=== PATIENT | female | born 1935 | race Caucasian/White ===

== ENCOUNTER 2023-02-06 13:48 | Outpatient (RCR) | payer MEDICARE, SELFPAY | END 2023-03-25 08:21 | disposition home or self-care (01) | LOC: OT 13:48 | PROVIDERS: PCP Nurse Practitioner Family; Visit Provider Nurse Practitioner Family | DX: M19.041 Primary osteoarthritis, right hand (principal) | CPT/HCPCS: 97018; 97110; 97140; 97165 ==

== ENCOUNTER 2023-03-26 10:30 | Outpatient (RCR) | payer MEDICARE, SELFPAY | END 2023-05-02 16:57 | disposition home or self-care (01) | LOC: OT 10:30 | PROVIDERS: PCP Nurse Practitioner Family; Visit Provider Nurse Practitioner Family | DX: M19.041 Primary osteoarthritis, right hand (principal) | CPT/HCPCS: 97018; 97110; 97140 ==

== ENCOUNTER 2023-04-19 10:10 | Outpatient (OUT) | payer MEDICARE, SELFPAY ==
--- OUTSIDE RECORDS SUMMARY | 2023-04-19 10:17 | XMS_ITS | CCD ---
Author Name Unknown Address [address] [place] [address] Organization [facility] Care Team Providers Care Miter Operator Name Role Phone Unavailable Unavailable Dank Stock Unavailable Namrata Estes Unavailable Naima Horan Unavailable [place] Cagle Primary Care Provider MD Magen Lentz Attending Provider DO Gurmeet Peña Attending Provider [phone] MD Melo Guzman Attending Provider MD Kelechi Madison Emergency Provider [place] Estes Attending Provider [phone] MD Leo Lanier Attending Provider [place] Cagle Primary Care Provider LENA Burt Attending Provider [phone] Crystal Burt Unavailable Namrata Cagle Unavailable [place] Cagle Primary Care Provider MD Meol Guzman Attending Provider [place] Cagle Attending Provider [phone] [place] Cagle Primary Care Provider MD Melo Guzman Attending Provider [place] Cagle Attending Provider MD Magen Lentz Attending Provider MD Nicola Walker Attending Provider Magen Lentz Unavailable TSERING, NAMRATA Primary Care Unavailable TSERING, NAMRATA Admitting Unavailable TSERING, NAMRATA Attending Unavailable ANITRA, DR IGLESIA Snow Consulting Unavailable TSERING, NAMRATA Consulting Unavailable TSERING, NAMRATA Primary Care Unavailable TSERING, NAMRATA Admitting Unavailable TSERING, NAMRATA Attending Unavailable TSERING, NAMRATA Primary Care Unavailable TD ., DR PINA Attending Unavailable ANA, DR MARILEE Williamson Consulting Unavailable TD ., DR PINA Admitting Unavailable AUSTIN ., PRETTY ROBBINS Consulting Unavailabl e TSERING, NAMRATA Primary Care Unavailable TSERING, NAMRATA Attending Unavailable TSERING, NAMRATA Admitting Unavailable TSERING, NAMRATA Primary Care Unavailable TSERING, NAMRATA Consulting Unavailable TSERING, NAMRATA Admitting Unavailable TSERING, NAMRATA Attending Unavailable TSERING, NAMRATA Primary Care Unavailable TSERING, NAMRATA Consulting Unavailable TSERING, NAMRATA Admitting Unavailable TSERING, NAMRATA Attending Unavailable TSERING, NAMRATA Primary Care Unavailable TSERING, NAMRATA Consulting Unavailable TSERING, NAMRATA Admitting Unavailable TSERING, NAMRATA Attending Unavailable TSERING, NAMRATA Primary Care Unavailable NANCY, DR EVANGELISTA Consulting Unavailable NANCY, DR EVANGELISTA Attending Unavailable NANCY, DR EVANGELISTA Admitting Unavailable TSERING, NAMRATA Primary Care Unavailable TSERING, NAMRATA Consulting Unavailable TSERING, NAMRATA Admitting Unavailable TSERING, NAMRATA Attending Unavailable TSERING, NAMRATA Primary Care Unavailable TSERING, NAMRATA Attending Unavailable TSERING, NAMRATA Admitting Unavailable ANA, DR MARILEE Williamson Consulting Unavailable TSERING, NAMRATA Consulting Unavailable Francy [place] Unavailable DANA Cagle-C Namrata Shantel Primary Care Provider DO Gurmeet Peña Attending Provider Unavailable Unavailable Moses LYNCH, Dr. Zack Velarde Referring Unavailable Moses II, Dr. Zack Velarde Attending Unavailable Moses II, Dr. Zack Velarde Referring Unavailable Kezia Patten Attending Unavailable [id number], Julio Cesar Attending Unavailable Tsering, DANA-C Namrata Shantel Primary Care Provider MD Melo Guzman Attending Provider Namrata Cagle Primary Care Unavailable Namrata Cagle Attending Unavailable Namrata Cagle Admitting Unavailable Tsering, Namrata Shantel Primary Care Unavailable Magen Lentz Admitting Unavailable Magen Lentz Attending Unavailable Tsering, Namrata Funes Primary Care Unavailable Nicola Walker Admitting Unavailable Nicola Walker Attending Unavailable Tsering, Namrata Funes Primary Care Unavailable Gurmeet Peña Admitting Unavailable Gurmeet Peña Attending Unavailable Melo Guzman Attending Unavailable Namrata Cagle Primary Care Unavailable Melo Guzman Admitting Unavailable Tsering, Namrata Funes Primary Care Unavailable Melo Guzman Admitting Unavailable Melo Guzman Attending Unavailable LANA ROSARIO Attending Unavailable LANA ROSARIO Attending Unavailable LANA ROSARIO Attending Unavailable Syd OCHOA Admitting Unavailable Syd OCHOA Attending Unavailable Syd OCHOA Attending Unavailable Namrata Chaparro Primary Care Provider Allergies Allergy Classification Reported Allergen(s) Allergy Type Date of Onset Reaction(s) Facility (20 sources) Amiodarone; Translations: [amiodarone] Drug Allergy 10-21-19 22 [facility] (6 sources) Bacitracin / Neomycin / Polymyxin B; Translations: [Neosporin OINT] Drug Allergy Rash [place] [address] DO Work Phone: (20 sources) Lisinopril; Translations: [lisinopril] Drug Allergy 10-21-19 22 [facility] (7 sources) NITROFURANTOIN, MACROCRYSTALS / Nitrofurantoin, Monohydrate; Translations: [Macrobid] Drug Allergy 01-19-20 23 Itching, Rash [facility] 250 DO Work Phone: (7 sources) Sulfonamides (Antibiotic); Translations: [Sulfa Drugs] Allergy to drug (finding) Unknown [facility] Repository (20 sources) Tobramycin; Translations: [Tobrex] Drug Allergy 01-19-20 23 Unknown [facility] Repository (16 sources) Bacitracin / Neomycin / Polymyxin B; Translations: [Neosporin] Drug Allergy 04-07-19 15 Unknown [facility] Repository (13 sources) Sulfacetamide Drug Allergy [facility] [employer] Other (12 sources) Miconazole; Translations: [miconazole] Drug Allergy 10-21-19 worsened ear infection [facility] (13 sources) Nitrofurantoin; Translations: [nitrofurantoin] Drug Allergy 10-21-19 22 Hives [facility] (13 sources) Sulfonamides (Antibiotic); Translations: [Sulfa (Sulfonamide Antibiotics)] Allergy to substance 10-21-19 Unknown [facility] (12 sources) Tobramycin; Translations: [tobramycin] Drug Allergy 10-21-19 worsened eye infection [facility] (5 sources) predniSONE; Translations: [predniSONE] Drug Allergy 11-24-19 22 Itching [facility] 250 DO Work Phone: (1 source) Amino Acids Drug Allergy [facility] Repository (2 sources) Amiodarone Drug Allergy [facility] Repository (1 source) Bacitracin Drug Allergy [facility] Repository (2 sources) Phentolamine Drug Allergy 04-14-19 15 [facility] Repository (2 sources) Sulfonamides (Antibiotic) Drug allergy (disorder) 04-14-19 15 [facility] Repository (1 source) Amiodarone Drug Allergy 06-09-19 23 [facility] Repository (1 source) Lisinopril Drug Allergy 06-09-19 23 [facility] Repository (1 source) Bacitracin / Polymyxin B Drug Allergy 01-19-20 23 [facility] Work Phone: Medications Current Medications Medication Drug Class(es) Dates Sig (Normalized) Sig (Original) amLODIPine 2.5 mg oral tablet (20 sources) Dihydropyridine Calcium Channel Kiesha Start: 11-30-2021 take 2.5 mg by mouth once daily Amlodipine Active 2.5 MG PO Daily June 08, 2022 12:00am Start: 2017 End: 05-12-2017 take 1 tablet by mouth once daily Amlodipine (Norvasc) 5 mg Tablet Discontinued 5 MG PO Daily 2017 1:00am May 12, 2017 4:21pm apixaban 2.5 mg oral tablet (20 sources) Factor Xa Inhibitor Start: 01-19-2023 End: 04-17-2024 take 1 tablet by mouth twice daily Eliquis 2.5 mg tablet Indications: Paroxysmal atrial fibrillation (CMS/HCC) Take 1 tablet (2.5 mg) by mouth 2 times a day. 60 tablet 11 04/18/2023 04/17/2024 Active Start: 04-08-2020 take 1 tablet by yrn th twice daily Apixaban (Eliquis) 2.5 mg tablet Active 2.5 MG PO Twice daily April 08, 2020 1:00am Start: 03-05-2018 End: 08-04-2019 take 1 tablet by mouth twice daily Apixaban (Eliquis) 2.5 mg Tablet Discontinued 2.5 MG PO Twice daily March 05, 2018 1:00am August 04, 2019 12:09am Start: 05-12-2017 End: 11-17-2017 take 1 tablet by mouth every twelve hours Apixaban (Eliquis) 2.5 mg Tablet Discontinued 2.5 MG PO Q12H May 12, 2017 1:00am November 17, 2017 2:00pm calcium acetate 667 mg oral capsule (20 sources) Start: 04-07-2021 take 1334 mg by mouth three times daily Calcium Acetate(Phosphat Bind) Active 1334 MG PO Three times daily April 07, 2021 1:00am Start: 04-07-2021 take 667 mg by mouth three times daily Calcium Acetate(Phosphat Bind) Active 667 MG PO Three times daily April 07, 2021 12:00am Start: 08-07-2019 End: 04-08-2020 take 667 mg by mouth three times daily at mealtime Calcium Acetate(Phosphat Bind) Discontinued 667 MG PO THREE TIMES DAILY WITH MEALS August 07, 2019 12:00am April 08, 2020 12:17pm Start: 04-03-2018 End: 11-27-2018 take 1 tablet by mouth twice daily Calcium Acetate(Phosphat Bind) Discontinued 1 TAB PO Twice daily April 03, 2018 1:00am November 27, 2018 9:53am cefdinir 300 mg oral capsule (2 sources) Cephalosporin Antibacterial Start: 04-08-2021 take 1 capsule by mouth every twelve hours Cefdinir 300 MG 1 capsule Orally every 12 hrs for 7 days Mar, Active ciprofloxacin 500 mg oral tablet (6 sources) Quinolone Antimicrobial Start: 10-15-2021 take 1 tablet by mouth every twelve hours Cipro 500 MG 1 tablet Orally every 12 hrs for 5 day(s) Sep, Active furosemide 80 mg oral tablet (20 sources) Loop Diuretic Start: 08-07-2019 take 1 tablet by mouth once daily furosemide (Lasix) 80 mg tablet Take 1 tablet (80 mg) by mouth once daily. 0 11/19/2020 Active Start: 11-27-2018 End: 08-07-2019 take 80 mg by mouth once daily Furosemide Discontinued 80 MG PO Daily November 27, 2018 9:54am August 07, 2019 2:47pm Start: 11-06-2017 End: 11-27-2018 take 40 mg by mouth once daily Furosemide Discontinued 40 MG PO Daily November 06, 2017 12:00am November 27, 2018 9:54am Start: 2017 End: 11-06-2017 take 20 mg by mouth twice daily Furosemide Discontinued 20 MG PO Twice daily 2017 1:00am November 06, 2017 9:06am hydroxychloroquine sulfate 200 mg oral tablet (1 source) Antimalarial, Antirheumatic Agent hydroxychloroquine (Plaquenil) 200 mg tablet Take 1 tablet (200 mg) by mouth. Take one tablet every 3 days 0 Active levothyroxine sodium 0.075 mg oral tablet (20 sources) l-Thyroxine Start: 2020 take 1 tablet by mouth once daily levothyroxine (Synthroid, Levoxyl) 75 mcg tablet Take 1 tablet (75 mcg) by mouth once daily. 0 01/24/2021 Active Start: 08-08-2019 Levothyroxine (Synthroid) 100 mcg tablet Active 75 MCG PO DAILY@0700 30 August 08, 2019 12:43pm Start: 11-06-2017 End: 08-08-2019 take 1 tablet by mouth once daily Levothyroxine (Synthroid) 100 mcg tablet Discontinued 100 MCG PO DAILY@0700 March 27, 2018 4:47pm August 08, 2019 12:43pm Start: 2017 End: 11-06-2017 take 100 ug by mouth once daily Levothyroxine Discontinued 100 MCG PO Daily 2017 1:00am November 06, 2017 9:07am take 1 tablet by yrn th once daily Levothyroxine Sodium 100 MCG TAKE ONE TABLET BY MOUTH DAILY Active methylPREDNISolone 4 mg oral tablet (5 sources) Corticosteroid Start: 06-08-2022 Methylprednisolone (Methylprednisone) 4 mg Tablet Active 4 MG PO Every 48 hours June 08, 2022 12:00am 24 hr metoprolol succinate 25 mg extended release oral tablet (20 sources) beta-Adrenergic Kiesha Start: 01-19-2023 End: 01-19-2024 take 0.5 tablet by mouth once daily metoprolol succinate XL (Toprol-XL) 25 mg 24 hr tablet Indications: Hypertension, unspecified type Take 0.5 tablets (12.5 mg) by mouth once daily. 45 tablet 3 01/19/2023 01/19/2024 Active Start: 03-14-2021 take 0.5 tablet by m outh once daily Metoprolol Succinate ER 25 MG Oral Tablet Extended Release 24 Hour take 1/2 tablet by mouth daily Quantity: 45 Refills: 3 Ordered: 28-Dec-2021 Kezia Anglin Start : 14-Mar-2021 Active Start: 09-25-2018 take 2 tablets by mo uth once daily at bedtime Metoprolol Succinate (Toprol Xl) 25 mg Tablet Extended Release 24 Hr Active 12.5 MG PO Daily at bedtime September 25, 2018 12:00am Start: 2017 End: 05-23-2017 take 50 mg by mouth twice daily Metoprolol Tartrate Di scontinued 50 MG PO Twice daily 2017 1:00am May 23, 2017 12:21pm predniSONE 5 mg oral tablet (1 source) take 1 tablet by mouth every other day predniSONE (Deltasone) 5 mg tablet Take 1 tablet (5 mg) by mouth every other day. 0 Active triamcinolone acetonide 0.001 mg/mg topical ointment (13 sources) Corticosteroid Start: 04-18-2019 Triamcinolone Acetonide 0.1 % 1 application Externally Twice a day for 14 days Mar, Active Start: 09-24-2015 SUSAN - 10 m g Sep, 40 mg Completed/Discontinued Medications Medication Drug Class(es) Dates Sig (Normalized) Sig (Original) amiodarone hydrochloride 200 mg oral tablet (11 sources) Antiarrhythmic Start: 05-12-2017 End: 09-03-2017 take 200 mg by mouth every twelve hours Amiodarone Discontinued 200 MG PO Q12H May 12, 2017 1:00am September 03, 2017 1:37pm amitriptyline hydrochloride 10 mg oral tablet (20 sources) Tricyclic Antidepressant Start: 2017 End: 04-08-2020 take 10 mg by mouth once daily at bedtime Amitriptyline Discontinued 10 MG PO Daily at bedtime 2017 1:00am April 08, 2020 12:17pm amoxicillin 500 mg oral capsule (11 sources) Penicillin-class Antibacterial Start: 05-12-2017 End: 05-22-2017 take 1000 mg by mouth twice daily Amoxicillin Discontinued 1000 MG PO Twice daily May 12, 2017 1:00am May 22, 2017 4:26pm amoxicillin 875 mg / clavulanate 125 mg oral tablet (11 sources) Penicillin-class Antibacterial Start: 03-12-2021 End: 04-07-2021 take 1 tablet by mouth twice daily Amoxicillin-Pot Clavulanate (Augmentin) 875-125 mg Tablet Discontinued 1 TAB PO Twice daily March 12, 2021 1:00am April 07, 2021 12:56pm anastrozole 1 mg oral tablet (20 sources) Aromatase Inhibitor Start: 2017 End: 04-08-2020 take 1 mg by mouth once daily Anastrozole Discontinued 1 MG PO Daily August 14, 2017 8:19am March 27, 2018 4:46pm aspirin 81 mg delayed release oral tablet (20 sources) Platelet Aggregation Inhibitor, Nonsteroidal Anti-inflammatory Drug Start: 09-04-2019 End: 04-08-2020 take 81 mg by mouth once daily Aspirin Discontinued 81 MG PO Daily September 04, 2019 12:00am April 08, 2020 12:17pm Start: 11-17-2017 End: 08-08-2019 take 81 mg by mouth two times weekly Aspirin Discontinued 81 MG PO Twice a Week November 17, 2017 12:00am August 08, 2019 12:45pm Start: 2017 End: 05-12-2017 take 1 tablet by mouth once daily Aspirin Discontinued 1 TAB PO Daily 2017 1:00am May 12, 2017 4:22pm take 1 tablet by yrn th every twenty-four hours Aspirin 81 MG 1 tablet Orally Once a day TWICE A WEEK Active cefuroxime 250 mg oral tablet (3 sources) Cephalosporin Antibacterial Start: 12-17-2021 take 1 tablet by mouth every twelve hours Cefuroxime Axetil 250 MG 1 tablet Orally every 12 hrs for 7 days Nov, Not-Taking cephalexin 500 mg oral capsule (20 sources) Cephalosporin Antibacterial Start: 10-17-2021 End: 06-08-2022 Cephalexin Discontinued 500 MG PO Three times daily October 20, 2021 12:00am June 08, 2022 1:26pm x7 days started 10-15-21 Start: 04-08-2020 End: 06-17-2020 take 500 mg by mouth twice daily Cephalexin Discontinued 500 MG PO Twice daily April 08, 2020 1:00am June 17, 2020 10:38am cloNIDine hydrochloride 0.2 mg oral tablet (20 sources) Central alpha-2 Adrenergic Agonist Start: 11-14-2017 End: 03-27-2018 take 0.2 mg by mouth twice daily Clonidine Hcl Discontinued 0.2 MG PO Twice daily November 14, 2017 10:43am March 27, 2018 4:46pm Start: 11-06-2017 End: 11-14-2017 take 0.2 mg by mouth three times daily Clonidine Hcl Discontinued 0.2 MG PO Three times daily November 06, 2017 12:00am November 14, 2017 10:43am Start: 2017 End: 11-06-2017 take 0.2 mg by mouth every twelve hours Clonidine Hcl Discontinued 0.2 MG PO Q12H 2017 1:00am November 06, 2017 9:06am diclofenac sodium 0.01 mg/mg topical gel (11 sources) Nonsteroidal Anti-inflammatory Drug Start: 08-08-2019 End: 04-08-2020 apply 2 g topically three times daily Diclofenac Sodium Discontinued 2 GM TOPICAL Three times daily 100 10 August 08, 2019 12:00am April 08, 2020 12:17pm docosahexaenoic acid 144 mg / eicosapentaenoic acid 216 mg / vitamin e 2 unt oral capsule (20 sources) Start: 05-22-2017 End: 09-03-2017 take 1 capsule by mouth once daily [place]-3 Fatty Acids-Fish Oil (Fish Oil) 360-1,200 mg Capsule Discontinued 1200 MG PO Daily May 22, 2017 1:00am May 22, 2017 4:36pm doxycycline hyclate 100 mg oral capsule (11 sources) Tetracycline-class Drug Start: 10-06-2021 End: 10-20-2021 take 100 mg by mouth twice daily Doxycycline Hyclate Discontinued 100 MG PO Twice daily 12 01October 06, 2021 12:00am October 20, 2021 11:54am ferrous sulfate 325 mg oral tablet (11 sources) Start: 05-22-2017 End: 11-01-2017 take 325 mg by mouth once daily Ferrous Sulfate Discontinued 325 MG PO Daily May 22, 2017 1:00am November 01, 2017 12:28pm hydrALAZINE hydrochloride 25 mg oral tablet (20 sources) Arteriolar Vasodilator Start: 08-07-2019 End: 06-08-2022 take 25 mg by mouth twice daily Hydralazine Discontinued 25 MG PO Twice daily August 07, 2019 12:00am June 08, 2022 1:26pm Start: 2017 End: 08-07-2019 take 25 mg by mouth once daily Hydralazine Discontinue d 25 MG PO Daily 2017 1:00am August 07, 2019 2:47pm take 1 tablet by yrn th every twenty-four hours hydrALAZINE HCl 25 MG 1 tablet Orally once a day Not-Taking ketorolac tromethamine 5 mg/ml ophthalmic solution (20 sources) Nonsteroidal Anti-inflammatory Drug, Cyclooxygenase Inhibitor Start: 11-04-2017 End: 11-04-2017 Ketorolac Discontinued SOLUTION/ DROPS November 04, 2017 12:00am November 04, 2017 5:34am Start: 11-04-2017 End: 03-27-2018 take 1 drop(s) into the eye(s) every six hours Ketorolac Discontinued 1 DROPS OPHTHALMIC Every 6 hours November 04, 2017 12:00am March 27, 2018 4:47pm levoFLOXacin 750 mg oral tablet (20 sources) Quinolone Antimicrobial Start: 2019 End: 04-02-2019 take 750 mg by mouth every other day Levofloxacin Discontinued 750 MG PO Q2D 2019 1:00am April 02, 2019 11:58am For 10 days. Start: 11-17-2017 End: 11-27-2017 Levofloxacin (Levaquin) 750 mg tablet Discontinued 750 MG PO Q48H 5 10 November 17, 2017 12:00am November 27, 2017 12:01am lidocaine 50 mg/ml rectal cream (20 sources) Antiarrhythmic, Amide Local Anesthetic Start: 08-08-2019 End: 10-20-2021 apply 1 dose topically once daily Lidocaine (Aspercreme (Lidocaine)) 4 % Adhesive Patch,Medicated Discontinued 1 PATCH TOPICAL Daily 6 August 08, 2019 12:00am October 20, 2021 11:54am Start: 08-07-2019 End: 10-20-2021 Lidocaine Discontinued 1 VENKATESH LIC TOPICAL MOWEFR@0900 15 August 08, 2019 12:43pm October 20, 2021 11:56am melatonin 3 mg oral tablet (20 sources) Start: 05-22-2017 End: 04-08-2020 take 3 mg by mouth once daily at bedtime Melatonin Discontinued 3 MG PO Daily at bedtime May 22, 2017 1:00am April 08, 2020 12:17pm mupirocin 0.02 mg/mg topical ointment (11 sources) RNA Synthetase Inhibitor Antibacterial Start: 04-08-2020 End: 06-17-2020 Mupirocin Discontinued 1 APPLIC TOPICAL Three times daily April 08, 2020 1:00am June 17, 2020 10:39am niacin 500 mg oral tablet (20 sources) Nicotinic Acid Start: 04-03-2018 End: 08-04-2019 take 1000 mg by mouth once daily Niacin Discontinued 1000 MG PO Daily April 03, 2018 1:00am August 04, 2019 12:09am Start: 05-22-2017 End: 11-01-2017 take 1000 mg by mouth at bedtime Niacin Discontinued 1000 MG PO Bedtime May 22, 2017 1:00am November 01, 2017 12:29pm nitrofurantoin, macrocrystals 100 mg oral capsule (11 sources) Nitrofuran Antibacterial Start: 09-25-2018 End: 11-27-2018 take 100 mg by mouth every twelve hours Nitrofurantoin Macrocrystal Discontinued 100 MG PO Q12H September 25, 2018 12:00am November 27, 2018 9:54am pantoprazole 40 mg delayed release oral tablet (11 sources) Proton Pump Inhibitor Start: 05-12-2017 End: 05-22-2017 take 40 mg by mouth once daily in the morning Pantoprazole Discontinued 40 MG PO Every morning May 12, 2017 1:00am May 22, 2017 4:25pm prednisoLONE acetate 10 mg/ml ophthalmic suspension (11 sources) Corticosteroid Start: 11-04-2017 End: 03-27-2018 take 1 drop(s) into the eye(s) once daily Prednisolone Acetate (Pred Forte) 1 % Drops,Suspension Discontinued 1 DROPS OPHTHALMIC Daily November 04, 2017 12:00am March 27, 2018 4:47pm psyllium 3400 mg powder for oral suspension (11 sources) Start: 04-03-2018 End: 08-04-2019 Psyllium Husk (Metamucil) 3.4 gram/5.4 gram Powder Discontinued 1 DOSE PO Daily April 03, 2018 1:00am August 04, 2019 12:09am spironolactone 25 mg oral tablet (11 sources) Aldosterone Antagonist Start: 2017 End: 11-17-2017 take 25 mg by mouth once daily Spironolactone Discontinued 25 MG PO Daily 2017 1:00am November 17, 2017 1:34pm warfarin sodium 3 mg oral tablet (11 sources) Vitamin K Antagonist Start: 08-04-2019 End: 08-08-2019 take 3 mg by mouth once daily Warfarin Discontinued 3 MG PO Daily August 04, 2019 12:00am August 08, 2019 12:45pm Zicam (11 sources) Start: 2019 End: 04-02-2019 Zicam Discontinued 1 TAB PO As Directed 2019 12:00am April 02, 2019 10:59am Start: 2019 End: 04-02-2019 Zicam Discontinued 1 TAB PO As Directed 2019 1:00am April 02, 2019 11:59am Problems Active Problems Problem Classification Problem Date Documented Da te Episodic/Chronic Acute posthemorrhagic anemia (11 sources) Acute posthemorrhagic anemia; Translations: [Acute posthemorrhagic anemia] 08-04-2019 Episodic Cancer of breast (11 sources) Malignant tumor of breast ; Translations: [Malignant neoplasm of unspecified site of left female breast] 04-02-2019 Chronic Cardiac dysrhythmias (20 sources) Paroxysmal atrial fibrillation; Translations: [Paroxysmal atrial fibrillation with rapid ventricular response] Onset: 01-18-2023 04-02-2019 Chronic Chronic kidney disease (20 sources) 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; Translations: [End stage renal disease] Onset: 11-14-2021 12-18-2019 Chronic Congestive heart failure; nonhypertensive (11 sources) Acute exacerbation of chronic congestive heart failure; Translations: [Heart failure, unspecified] 06-17-2021 Chronic Deficiency and other anemia (13 sources) Anemia in chronic kidney disease; Translations: [Anemia in chronic kidney disease] Chronic Deficiency and other anemia (7 sources) Anemia; Translations: [Anemia, unspecified] Onset: 01-18-2023 01-18-2023 Episodic Disorders of lipid metabolism (8 sources) Primary hypertriglyceridemia; Translations: [Pure hyperglyceridemia] Onset: 09-13-2021 01-18-2023 Chronic Diverticulosis and diverticulitis (12 sources) Diverticulitis of colon; Translations: [Diverticulitis of large intestine without perforation or abscess without bleeding] Onset: 07-16-2022 03-12-2021 Chronic Essential hypertension (20 sources) Hypertensive disorder; Translations: [Unspecified essential hypertension] Onset: 09-10-2021 04-02-2019 Chronic Fluid and electrolyte disorders (20 sources) Hyponatremia; Translations: [Hypo-osmolality and hyponatremia] 04-02-2019 Episodic Gastrointestinal hemorrhage (20 sources) Rectal hemorrhage; Translations: [Hemorrhage of anus and rectum] 08-04-2019 Episodic Genitourinary symptoms and ill-defined conditions (14 sources) Dysuria; Translations: [Dysuria] Onset: 04-08-2021 Resolved: 10-15-2021 Episodic Hypertension with complications and secondary hypertension (20 sources) Chronic kidney disease due to hypertension; Translations: [Hypertensive chronic kidney disease with stage 1 through stage 4 chronic kidney disease, or unspecified chronic kidney disease] 04-02-2019 Chronic Immunizations and screening for infectious disease (6 sources) Raised antibody titer; Translations: [Encounter for immunization] Onset: 09-29-2021 Episodic Neoplasms of unspecified nature or uncertain behavior (11 sources) Monoclonal gammopathy of uncertain significance; Translations: [Monoclonal gammopathy] 04-02-2019 Chronic Neoplasms of unspecified nature or uncertain behavior (13 sources) Neoplastic disease; Translations: [Neoplasm of unspecified behavior of bone, soft tissue, and skin] Episodic Occlusion or stenosis of precerebral arteries (7 sources) Right carotid artery stenosis; Translations: [Occlusion and stenosis of carotid artery without mention of cerebral infarction] Onset: 01-18-2023 01-18-2023 Chronic Osteoarthritis (1 source) Unspecified osteoarthritis, unspecified site; Translations: [UNSPECIFIED OSTEOARTHRITIS UNS SITE] Onset: 09-13-2021 Chronic Other aftercare (20 sources) Drug therapy finding; Translations: [Long-term (current) use of other medications] 09-25-2018 Episodic Other and ill-defined heart disease (1 source) Heart disease, unspecified; Translations: [HEART DISEASE UNSPECIFIED] Onset: 09-29-2021 Chronic Other bone disease and musculoskeletal deformities (11 sources) Osteopenia; Translations: [Other specified disorders of bone density and structure, unspecified site] 04-02-2019 Episodic Other circulatory disease (3 sources) Arteriovenous fistula; Translations: [Arteriovenous fistula, acquired] Chronic Other circulatory disease (2 sources) Arteriovenous fistula, acquired Chronic Other circulatory disease (4 sources) Cardiac function test normal; Translations: [Normal cardiac ejection fraction] Episodic Other circulatory disease (2 sources) Carotid bruit; Translations: [Other symptoms involving cardiovascular system] Episodic Other circulatory disease (1 source) Other specified symptoms and signs involving the circulatory and respiratory systems; Translations: [Oth symptoms and signs involving the circ and resp systems] Onset: 11-16-2022 Episodic Other injuries and conditions due to external causes (11 sources) Local infection of wound; Translations: [Other injury of unspecified body region, initial encounter] 10-06-2021 Episodic Other injuries and conditions due to external causes (11 sources) Closed injury of head; Translations: [Unspecified injury of head, initial encounter] 04-02-2019 Episodic Other lower respiratory disease (4 sources) Solitary pulmonary nodule; Translations: [SOLITARY PULMONARY NODULE] Onset: 07-18-2022 Episodic Other nutritional; endocrine; and metabolic disorders (20 sources) Hypercalcemia; Translations: [Hypercalcemia] 04-02-2019 Chronic Other nutritional; endocrine; and metabolic disorders (1 source) Body mass index 25-29 - overweight; Translations: [Body Mass Index 26.0-26.9, adult] Episodic Other nutritional; endocrine; and metabolic disorders (7 sources) Overweight; Translations: [Overweight] Onset: 01-18-2023 01-18-2023 Episodic Other nutritional; endocrine; and metabolic disorders (7 sources) Overweight in adulthood with body mass index of 25 or more but less than 30; Translations: [Body Mass Index 26.0-26.9, adult] Episodic Residual codes; unclassified (2 sources) Never smoked any substance; Translations: [Other specified health status] Onset: 04-18-2023 04-18-2023 Episodic Sprains and strains (11 sources) Strain of neck muscle; Translations: [Strain of muscle, fascia and tendon at neck level, initial encounter] 04-02-2019 Episodic Superficial injury; contusion (12 sources) Contusion of right chest wall; Translations: [Contusion of right front wall of thorax, initial encounter] Onset: 09-29-2021 04-02-2019 Episodic Syncope (11 sources) Syncope; Translations: [Syncope and collapse] 08-04-2019 Episodic Thyroid disorders (7 sources) Hypothyroidism; Translations: [Unspecified acquired hypothyroidism] Onset: 01-18-2023 01-18-2023 Chronic Unclassified (3 sources) LOW BACK PAIN, UNSPECIFIED; Translations: [LOW BACK PAIN, UNSPECIFIED] Onset: 09-07-2021 Unclassified (1 source) Stenosis of other vascular prosthetic devices, implants and grafts, initial encounter; Translations: [Stenosis of other vascular prosthetic devices, implants and grafts, initial encounter] Onset: 06-08-2022 Unclassified (1 source) Pain in left hip; Translations: [Pain in left hip] Onset: 05-31-2022 Urinary tract infections (19 sources) Urinary tract infection, site not specified; Translations: [Urinary tract infectious disease] Onset: 10-15-2021 Resolved: 10-15-2021 Episodic Past or Other Problems Problem Classification Problem Date Documented Da te Episodic/Chronic Abdominal pain (5 sources) Left lower quadrant pain; Translations: [Unspecified abdominal pain] Onset: 06-08-2022 Episodic Cancer of breast (1 source) Personal history of malignant neoplasm of breast; Translations: [Personal history of malignant neoplasm of breast] Onset: 09-27-2022 Episodic Deficiency and other anemia (1 source) Anemia, unspecified; Translations: [ANEMIA UNSPECIFIED] Onset: 09-13-2021 Episodic Diabetes mellitus without complication (5 sources) Other abnormal glucose; Translations: [OTHER ABNORMAL GLUCOSE] Onset: 09-13-2021 Episodic E Codes: Natural/environment (1 source) Bitten by dog, initial encounter; Translations: [BITTEN BY DOG INITIAL ENCOUNTER] Onset: 09-29-2021 Episodic Open wounds of extremities (5 sources) Open bite of right forearm, initial encounter; Translations: [Open bite, right thigh, initial encounter] Onset: 09-27-2021 Episodic Other aftercare (1 source) Other halfway (current) drug therapy; Translations: [OTH [facility] CURRENT DRUG THERAPY] Onset: 09-29-2021 Episodic Other aftercare (1 source) intermediate card tender (current) use of anticoagulants; Translations: [[facility] CURRNT USE ANTICOAGULANTS] Onset: 09-29-2021 Episodic Other non-traumatic joint disorders (1 source) Pain in unspecified joint; Translations: [Pain in unspecified joint] Onset: 05-31-2022 Episodic Other nutritional; endocrine; and metabolic disorders (1 source) Abnormal weight loss; Translations: [ABNORMAL WEIGHT LOSS] Onset: 04-20-2022 Episodic Residual codes; unclassified (3 sources) Other specified health status Onset: 10-15-2021 Resolved: 10-15-2021 Episodic Unclassified (6 sources) Never smoked tobacco; Translations: [Never a smoker] Unclassified (1 source) LOW BACK PAIN, UNSPECIFIED; Translations: [LOW BACK PAIN, UNSPECIFIED] Onset: 09-06-2021 Unclassified (1 source) Onset: 04-18-2023 04-18-2023 Results Test Name Value Interpretation Reference Range Facility Antimyeloperoxidase (MPO) Ab son 01-03-2023 Antimyeloperoxidase (MPO) Abs 3.4 High 0.0-0.9 [facility] Comment on above: Performed By: #### A DDONUAPLUS, CUU, CREAT, ESR, CBC, CRP ####[facility] [id number] [place] [id number] [facility]#### PR3 AB, MPO AB ####[facility] , Automated erythrocytes count in urine sediment (number/area)Ordered By: Melo Guzman on 01-03-2023 RBC Auto (Urine sed) [#/Area] 5-9 [HPF] 0-4 [facility] Automated leukocytes count i n urine sediment (number/area)Ordered By: Melo Guzman on 01-03-2023 WBC Auto (Urine sed) [#/Area] Innumerable [HPF] 0-4 [facility] Basophils Auto (Bld) [#/Vol] Ordered By: Melo Guzman on 01-03-2023 Basophils (Bld) [#/Vol] 0.1 10*3/uL 0.0-0.2 [facility] Basophils/100 WBC Auto (Bld) Ordered By: Melo Guzman on 01-03-2023 Basophils/100 WBC (Bld) 0.9 % . [facility] Bilirubin Test strip Ql (U)O rdered By: Melo Guzman on 01-03-2023 Bilirubin Ql (U) Negative Negative [facility] C reactive protein [Mass/vol ume] in Serum or PlasmaOrdered By: Melo Guzman on 01-03-2023 CRP [Mass/Vol] 0.9 mg/dL 0.0-0.5 [facility] C-Reactive Proteinon 023 C-Reactive Protein 0.9 mg/dL High 0.0-0.5 [facility] Comment on above: Result Comment: PERF ORMED BY: [facility] [address] [place] [address] PATHOLOGIST PREPRESS PROOFER YULIANA PIÑA M.D. Performed By: #### A DDONUAPLUS, CUU, CREAT, ESR, CBC, CRP #### [facility] [address] [place] [address] [place] #### PR3 AB, MPO AB #### [facility] , Color Auto (U)Ordered By: Kenia Guzman on 01-03-2023 Color (U) Yellow Yellow [facility] Complete Blood Count Auto Di ffon 01-03-2023 Basophils (Bld) [#/Vol] 0.1 10*3/uL Normal 0.0-0.2 [facility] Comment on above: Performed By: #### A DDONUAPLUS, CUU, CREAT, ESR, CBC, CRP #### [facility] [address] [place] [address] #### PR3 AB, MPO AB #### [facility] , Basophils/100 WBC (Bld) 0.9 % Normal . [facility] Comment on above: Performed By: #### A DDONUAPLUS, CUU, CREAT, ESR, CBC, CRP #### [address] #### PR3 AB, MPO AB #### [facility] , Eosinophils (Bld) [#/Vol] 0.2 10*3/uL Normal 0.0-0.45 [facility] Comment on above: Performed By: #### A DDONUAPLUS, CUU, CREAT, ESR, CBC, CRP #### [address] #### PR3 AB, MPO AB #### [facility] , Eosinophils/100 WBC (Bld) 2.8 % Normal . [facility] Comment on above: Performed By: #### A DDONUAPLUS, CUU, CREAT, ESR, CBC, CRP #### [address] #### PR3 AB, MPO AB #### [facility] , Erythrocyte distribution width (RBC) [Ratio] 12.3 % Normal 11.9-15.3 [facility] Comment on above: Performed By: #### A DDONUAPLUS, CUU, CREAT, ESR, CBC, CRP #### [place] [address] [place] #### PR3 AB, MPO AB #### [facility] , Hematocrit (Bld) [Volume fraction] 37.4 % Normal 34.0-46.4 [facility] Comment on above: Performed By: #### A DDONUAPLUS, CUU, CREAT, ESR, CBC, CRP #### [place] [address] [place] #### PR3 AB, MPO AB #### [facility] , Hemoglobin (Bld) [Mass/Vol] 12.7 g/dL Normal 11.8-15. 4 [facility] Comment on above: Performed By: #### A DDONUAPLUS, CUU, CREAT, ESR, CBC, CRP #### [address] #### PR3 AB, MPO AB #### [facility] , Lymphocytes (Bld) [#/Vol] 1.2 10*3/uL Normal 1.00-4.8 [facility] Comment on above: Performed By: #### A DDONUAPLUS, CUU, CREAT, ESR, CBC, CRP #### [address] #### PR3 AB, MPO AB #### [facility] , Lymphocytes/100 WBC (Bld) 19.5 % Normal . [facility] Comment on above: Performed By: #### A DDONUAPLUS, CUU, CREAT, ESR, CBC, CRP #### [address] #### PR3 AB, MPO AB #### [facility] , MCH (RBC) [Entitic mass] 33.7 pg Normal 24.7-34.3 [facility] Comment on above: Performed By: #### A DDONUAPLUS, CUU, CREAT, ESR, CBC, CRP #### [place] [address] [place] #### PR3 AB, MPO AB #### [facility] , MCV (RBC) [Entitic vol] 99.4 fL Normal 80-100 F [facility] Comment on above: Performed By: #### A DDONUAPLUS, CUU, CREAT, ESR, CBC, CRP #### [address] #### PR3 AB, MPO AB #### [facility] , Mean Corpuscular HGB Conc 33.9 g/dL Normal 32.0-35.0 [facility] Comment on above: Performed By: #### A DDONUAPLUS, CUU, CREAT, ESR, CBC, CRP #### [address] #### PR3 AB, MPO AB #### [facility] , Monocytes (Bld) [#/Vol] 0.7 10*3/uL Normal 0.0-0.8 [facility] Comment on above: Performed By: #### A DDONUAPLUS, CUU, CREAT, ESR, CBC, CRP #### [address] #### PR3 AB, MPO AB #### [facility] , Monocytes/100 WBC (Bld) 11.0 % Normal . [facility] Comment on above: Performed By: #### A DDONUAPLUS, CUU, CREAT, ESR, CBC, CRP #### [address] #### PR3 AB, MPO AB #### [facility] , Neutrophils (Bld) [#/Vol] 3.9 10*3/uL Normal 1.8-7.7 [facility] Comment on above: Performed By: #### A DDONUAPLUS, CUU, CREAT, ESR, CBC, CRP #### [place] [address] [place] #### PR3 AB, MPO AB #### [facility] , Neutrophils/100 WBC (Bld) 65.8 % Normal . [facility] Comment on above: Performed By: #### A DDONUAPLUS, CUU, CREAT, ESR, CBC, CRP #### [address] #### PR3 AB, MPO AB #### [facility] , NRBC% 0.1 /100{WBC} Normal 0-0.5 [facility] Comment on above: Performed By: #### A DDONUAPLUS, CUU, CREAT, ESR, CBC, CRP #### [place] [address] [place] #### PR3 AB, MPO AB #### [facility] , Platelet mean volume (Bld) [Entitic vol] 8.9 fL Normal 6.3-10.7 [facility] Comment on above: Performed By: #### A DDONUAPLUS, CUU, CREAT, ESR, CBC, CRP #### [address] #### PR3 AB, MPO AB #### [facility] , Platelets (Bld) [#/Vol] 185 10*3/uL Normal 150-450 [facility] Comment on above: Performed By: #### A DDONUAPLUS, CUU, CREAT, ESR, CBC, CRP #### [address] #### PR3 AB, MPO AB #### [facility] , RBC (Bld) [#/Vol] 3.76 10*6/uL Normal 3.60-5.00 [facility] Comment on above: Performed By: #### A DDONUAPLUS, CUU, CREAT, ESR, CBC, CRP #### [place] [address] [place] #### PR3 AB, MPO AB #### [facility] , WBC (Bld) [#/Vol] 6.0 10*3/uL Normal 3.8-11.6 [facility] Comment on above: Performed By: #### A DDONUAPLUS, CUU, CREAT, ESR, CBC, CRP #### [facility] [address] [place] [address] [place] #### PR3 AB, MPO AB #### [facility] , Creatinineon 01-03-2023 Creatinine [Mass/Vol] 4.00 mg/dL High 0.60-1.20 [facility] Comment on above: Performed By: #### A DDONUAPLUS, CUU, CREAT, ESR, CBC, CRP #### [facility] [address] [place] [address] [place] #### PR3 AB, MPO AB #### [facility] , GFR/1.73 sq M.predicted MDRD (S/P/Bld) [Vol rate/Area] 10.266 mL/min/{1.73_m2} Normal [facility] Comment on above: Performed By: #### A DDONUAPLUS, CUU, CREAT, ESR, CBC, CRP #### [facility] [address] [place] [address] [place] #### PR3 AB, MPO AB #### [facility] , Creatinine [Mass/volume] in Serum or PlasmaOrdered By: Melo Guzman on 01-03-2023 Creatinine [Mass/Vol] 4.00 mg/dL 0.60-1.20 [facility] Dipstick and Microscopicon 1 Appearance (U) Cloudy Critically abnormal Clear [facility] Comment on above: Order Comment: Name Collection Type:: Clean-Voided Midstream Performed By: #### A DDONUAPLUS, CUU, CREAT, ESR, CBC, CRP #### [facility] [address] [place] [address] [place] #### PR3 AB, MPO AB #### [facility] , Bacteria,Urine Rare High None Seen [facility] Comment on above: Order Comment: Name Collection Type:: Clean-Voided Midstream Performed By: #### A DDONUAPLUS, CUU, CREAT, ESR, CBC, CRP #### [address] #### PR3 AB, MPO AB #### [facility] , Bilirubin,Urine Negative Normal Negative [facility] Comment on above: Order Comment: Name Collection Type:: Clean-Voided Midstream Performed By: #### A DDONUAPLUS, CUU, CREAT, ESR, CBC, CRP #### [address] #### PR3 AB, MPO AB #### [facility] , Color (U) Yellow Normal Yellow [facility] Comment on above: Order Comment: Name Collection Type:: Clean-Voided Midstream Performed By: #### A DDONUAPLUS, CUU, CREAT, ESR, CBC, CRP #### [address] #### PR3 AB, MPO AB #### [facility] , Glucose Ql (U) Normal Normal Normal [facility] Comment on above: Order Comment: Name Collection Type:: Clean-Voided Midstream Performed By: #### A DDONUAPLUS, CUU, CREAT, ESR, CBC, CRP #### [address] #### PR3 AB, MPO AB #### [facility] , Hyaline Casts,Urine 0-8 Normal 0-8 [facility] Comment on above: Order Comment: Name Collection Type:: Clean-Voided Midstream Performed By: #### A DDONUAPLUS, CUU, CREAT, ESR, CBC, CRP #### [address] #### PR3 AB, MPO AB #### [facility] , Ketones Ql (U) Trace High Negative [facility] Comment on above: Order Comment: Name Collection Type:: Clean-Voided Midstream Performed By: #### A DDONUAPLUS, CUU, CREAT, ESR, CBC, CRP #### [address] #### PR3 AB, MPO AB #### [facility] , Leukocyte esterase Test strip Ql (U) 3+ High Negative [facility] Comment on above: Order Comment: Name Collection Type:: Clean-Voided Midstream Performed By: #### A DDONUAPLUS, CUU, CREAT, ESR, CBC, CRP #### [address] #### PR3 AB, MPO AB #### [facility] , Nitrite,Urine Negative Normal Negative [facility] Comment on above: Order Comment: Name Collection Type:: Clean-Voided Midstream Performed By: #### A DDONUAPLUS, CUU, CREAT, ESR, CBC, CRP #### [address] #### PR3 AB, MPO AB #### [facility] , Occult Blood,Urine Negative Normal Negative [facility] Comment on above: Order Comment: Name Collection Type:: Clean-Voided Midstream Performed By: #### A DDONUAPLUS, CUU, CREAT, ESR, CBC, CRP #### [address] #### PR3 AB, MPO AB #### [facility] , pH (U) 5.0 [pH] Normal 5.0-9.0 [facility] Comment on above: Order Comment: Name Collection Type:: Clean-Voided Midstream Performed By: #### A DDONUAPLUS, CUU, CREAT, ESR, CBC, CRP #### [place] [address] [place] #### PR3 AB, MPO AB #### [facility] , Protein,Urine Trace High Negative [facility] Comment on above: Order Comment: Name Collection Type:: Clean-Voided Midstream Performed By: #### A DDONUAPLUS, CUU, CREAT, ESR, CBC, CRP #### [address] #### PR3 AB, MPO AB #### [facility] , RBC,Urine 5-9 High 0-4 [facility] Comment on above: Order Comment: Name Collection Type:: Clean-Voided Midstream Performed By: #### A DDONUAPLUS, CUU, CREAT, ESR, CBC, CRP #### [address] #### PR3 AB, MPO AB #### [facility] , Renal Epithelial Cells,Urine None Seen Normal 0-1 [facility] Comment on above: Order Comment: Name Collection Type:: Clean-Voided Midstream Performed By: #### A DDONUAPLUS, CUU, CREAT, ESR, CBC, CRP #### [address] #### PR3 AB, MPO AB #### [facility] , Specificy Arjay,Urine 1.016 Normal 1.00 1-1.03 0 [facility] Comment on above: Order Comment: Name Collection Type:: Clean-Voided Midstream Performed By: #### A DDONUAPLUS, CUU, CREAT, ESR, CBC, CRP #### [address] #### PR3 AB, MPO AB #### [facility] , Squamous Epithelial Cell,Urine 10-19 High 0-2 [facility] Comment on above: Order Comment: Name Collection Type:: Clean-Voided Midstream Performed By: #### A DDONUAPLUS, CUU, CREAT, ESR, CBC, CRP #### [address] #### PR3 AB, MPO AB #### [facility] , Urobilinogen,Urine Normal Normal Normal [facility] Comment on above: Order Comment: Name Collection Type:: Clean-Voided Midstream Performed By: #### A DDONUAPLUS, CUU, CREAT, ESR, CBC, CRP #### [facility] [address] [place] [address] #### PR3 AB, MPO AB #### [facility] , WBC,Urine Innumerable High 0-4 [facility] Comment on above: Order Comment: Name Collection Type:: Clean-Voided Midstream Performed By: #### A DDONUAPLUS, CUU, CREAT, ESR, CBC, CRP #### [facility] [address] [place] [address] #### PR3 AB, MPO AB #### [facility] , Yeast,Urine None Seen Normal None Seen [facility] Comment on above: Order Comment: Name Collection Type:: Clean-Voided Midstream Result Comment: PERF ORMED BY: [place] [address] PATHOLOGIST PREPRESS PROOFER YULIANA PIÑA M.D. Performed By: #### A DDONUAPLUS, CUU, CREAT, ESR, CBC, CRP #### [facility] [address] [place] [address] #### PR3 AB, MPO AB #### [facility] , Eosinophils Auto (Bld) [#/Vo l]Ordered By: Melo Guzman on 01-03-2023 Eosinophils (Bld) [#/Vol] 0.2 10*3/uL 0.0-0.45 [facility] Eosinophils/100 WBC Auto (Bl d)Ordered By: Melo Guzman on 01-03-2023 Eosinophils/100 WBC (Bld) 2.8 % . [facility] Erythrocyte Sedimentation Ra inderjit 01-03-2023 ESR (Bld) [Velocity] 31 mm/h High 0-29 [facility] Comment on above: Result Comment: PERF ORMED BY: [place] [address] PATHOLOGIST PREPRESS PROOFER YULIANA PIÑA M.D. Performed By: #### A DDONUAPLUS, CUU, CREAT, ESR, CBC, CRP ####[facility] [id number]#### PR3 AB, MPO AB ####[facility] , Erythrocyte distribution wid th Auto (RBC) [Ratio]Ordered By: Mleo Guzman on 01-03-2023 Erythrocyte distribution width (RBC) [Ratio] 12.3 % 11.9-15.3 [facility] Erythrocyte sedimentation ra te by Photometric methodOrdered By: Melo Guzman on 01-03-2023 ESR Photometric method (Bld) [Velocity] 31 mm/hr 0-29 [facility] Hematocrit Auto (Bld) [Volum e fraction]Ordered By: Melo Guzman on 01-03-2023 Hematocrit (Bld) [Volume fraction] 37.4 % 34.0-46.4 [facility] Hemoglobin [Mass/volume] in BloodOrdered By: Melo Guzman on 01-03-2023 Hemoglobin (Bld) [Mass/Vol] 12.7 g/dL 11.8-15. 4 [facility] Ketones Auto test strip (U) [Mass/Vol]Ordered By: Melo Guzman on 01-03-2023 Ketones (U) [Mass/Vol] Trace Negative [facility] Laboratory - UrinalysisOrder ed By: Melo Guzman on 01-03-2023 Hyaline casts LM Ql (Urine sed) 0-8 [LPF] 0-8 [facility] Leukocytes [#/volume] correc constance for nucleated erythrocytes in Blood by Automated counOrdered By: Melo Guzman on 01-03-2023 WBC corrected for nucl RBC Auto (Bld) [#/Vol] 6.0 10*3/uL 3.8-11.6 [facility] Lymphocytes Auto (Bld) [#/Vo l]Ordered By: Melo Guzman on 01-03-2023 Lymphocytes (Bld) [#/Vol] 1.2 10*3/uL 1.00-4.8 [facility] Lymphocytes/100 WBC Auto (Bl d)Ordered By: Melo Guzman on 01-03-2023 Lymphocytes/100 WBC (Bld) 19.5 % . [facility] MCH Auto (RBC) [Entitic mass ]Ordered By: Melo Guzman on 01-03-2023 MCH (RBC) [Entitic mass] 33.7 pg 24.7-34.3 [facility] MCHC Auto (RBC) [Mass/Vol]Or dered By: Melo Guzman on 01-03-2023 MCHC (RBC) [Mass/Vol] 33.9 g/dL 32.0-35.0 [facility] MCV Auto (RBC) [Entitic vol] Ordered By: Melo Guzman on 01-03-2023 MCV (RBC) [Entitic vol] 99.4 fL 80-100 F [facility] Monocytes Auto (Bld) [#/Vol] Ordered By: Melo Guzman on 01-03-2023 Monocytes (Bld) [#/Vol] 0.7 10*3/uL 0.0-0.8 [facility] Monocytes/100 WBC Auto (Bld) Ordered By: Melo Guzman on 01-03-2023 Monocytes/100 WBC (Bld) 11.0 % . [facility] Neutrophils Auto (Bld) [#/Vo l]Ordered By: Melo Guzman on 01-03-2023 Neutrophils (Bld) [#/Vol] 3.9 10*3/uL 1.8-7.7 [facility] Neutrophils/100 WBC Auto (Bl d)Ordered By: Melo Guzman on 01-03-2023 Neutrophils/100 WBC (Bld) 65.8 % . [facility] Nitrite Test strip Ql (U)Ord ered By: Melo Guzman on 01-03-2023 Nitrite Ql (U) Negative Negative [facility] No Panel InformationOrdered By: Melo Guzman on 01-03-2023 Estimated GFR (CKD-EPI) 10.266 mL/Min [facility] Creatinine Clearance (Chem N/A [facility] Nucleated erythrocytes [Pres ence] in Blood by Automated countOrdered By: Melo Guzman on 01-03-2023 Nucleated RBC Auto Ql (Bld) 0.1 /100{WBC} 0-0.5 [facility] Platelet mean volume Auto (B ld) [Entitic vol]Ordered By: Melo Guzman on 01-03-2023 Platelet mean volume (Bld) [Entitic vol] 8.9 fL 6.3-10.7 [facility] Platelets Auto (Bld) [#/Vol] Ordered By: Melo Guzman on 01-03-2023 Platelets (Bld) [#/Vol] 185 10*3/uL 150-450 [facility] Protein Auto test strip (U) [Mass/Vol]Ordered By: Melo Guzman on 01-03-2023 Protein (U) [Mass/Vol] Trace mg/dL Negative F [facility] Proteinase 3 (PR3) Antibodie son 01-03-2023 Proteinase 3 (PR3) Antibodies 0.7 Normal 0.0-0.9 [facility] Comment on above: Result Comment: Perf ormed at: [facility] [address] [id number] Mental Health Advanced Practice Nurse: Melba Mckenna MD, Phone: [phone] PERFORMED BY: [facility] [address] [place] [address] PATHOLOGIST PREPRESS PROOFER YULIANA PIÑA M.D. Performed By: #### A DDONUAPLUS, CUU, CREAT, ESR, CBC, CRP ####[facility] [id number]#### PR3 AB, MPO AB ####[facility] , RBC Auto (Bld) [#/Vol]Ordere d By: Melo Guzman on 01-03-2023 RBC (Bld) [#/Vol] 3.76 10*6/uL 3.60-5.00 [facility] Specific gravity Auto test s trip (U) [Rel density]Ordered By: Melo Guzman on 01-03-2023 Specific gravity (U) [Rel density] 1.016 1.001-1.03 0 [facility] Squamous epithelial cells de tection in urine sediment by light microscopyOrdered By: Melo Guzman on 01-03-2023 Epithelial cells.squamous LM Ql (Urine sed) 01-11 [HPF] 0-2 [facility] Urine Cultureon 01-03-2023 Bacteria identified Cx Nom (U) No Growth 2 Days PERFORMED BY: [facility] [address] [place] [id number] PATHOLOGIST PRE[employer] PROOFER YULIANA PIÑA M.D. Normal [facility] Comment on above: Performed By: #### A DDONUAPLUS, CUU, CREAT, ESR, CBC, CRP ####[facility] [id number] [place] [address] [place]#### PR3 AB, MPO AB ####[facility] , Urine bacteria detection by automated methodOrdered By: Melo Guzman on 01-03-2023 Bacteria Auto Ql (U) Rare None Seen [facility] Urine clarity by refractomet ry automatedOrdered By: Melo Guzman on 01-03-2023 Clarity Refractometry automated (U) Cloudy Clear [facility] Urine glucose measurement by automated test strip (mass/volume)Ordered By: Melo Guzman on 01-03-2023 Glucose Auto test strip (U) [Mass/Vol] Normal mg/dL Normal [facility] Urine hemoglobin detection b y automated test stripOrdered By: Melo Guzman on 01-03-2023 Hemoglobin Auto test strip Ql (U) Negative Negative [facility] Urine leukocyte esterase det ection by automated test stripOrdered By: Melo Guzman on 01-03-2023 Leukocyte esterase Auto test strip Ql (U) 3+ Negative [facility] Urine sediment renal epithel ial cell count by microscopy (number/high power field)Ordered By: Melo Guzman on 01-03-2023 Epithelial cells.renal LM.HPF (Urine sed) [#/Area] None seen [HPF] 0-1 [facility] Urobilinogen Auto test strip (U) [Mass/Vol]Ordered By: Melo Guzman on 01-03-2023 Urobilinogen (U) [Mass/Vol] Normal mg/dL Normal [facility] WBC Auto (Bld) [#/Vol]Ordere d By: Melo Guzman on 01-03-2023 WBC (Bld) [#/Vol] 6.0 10*3/uL 3.8-11.6 [facility] Yeast detection in urine sed iment by light microscopyOrdered By: Melo Guzman on 01-03-2023 Yeast LM Ql (Urine sed) None seen [HPF] None Se en [facility] pH Auto test strip (U)Ordere d By: Melo Guzman on 01-03-2023 pH (U) 5.0 [pH] 5.0-9.0 [facility] C Urineon 12-24-2022 Bacteria identified Cx Nom (U) Microbiology PROCEDURE: Urine Culture [R1] SOURCE: U CleanCatch BODY SITE: COLLECTED DATE/TIME: 12/22/2022 13:11 EDT RECEIVED DATE/TIME: 12/22/2022 19:42 EDT START DATE/TIME: 12/22/2022 19:42 EDT FREE TEXT SOURCE: GABRIELA ALEGRIA, Syd OCHOA MD, Syd Williamson FINAL REPORTS Final Report [] Verified Date/Time: 12/24/2022 11:00 EDT >100,000 cfu/ml Klebsiella pneumoniae <10,000 cfu/ml Mixed skin contaminants SUSCEPTIBILITY RESULTS LEGEND: S=Susceptible, N/R=Not Reported, Blank=Data not available, or drug not advisable or tested, I=Intermediate, ESBL=Extended spectrum beta-lactamase, R=Resistant, TFG=Thymidine-depen dent strain, QUINCY=Beta-lactamase positive, BRIEN=mcg/m;(mg/L), S*=Predicted susceptible interp, R*=Predicted resistant interp Klepne Antibiotic BRIEN Dilutn BRIEN Interp Amikacin <=16 S Ampicillin >16 R Ampicillin/ <=8/4 S Sulbactam Aztreonam <=4 S Cefazolin <=2 S Cefepime <=2 S Cefoxitin <=8 S Ceftazidime <=1 S Ceftazidime/ <=8 S Avibactam Ceftriaxone <=1 S Ciprofloxacin <=1 S Ertapenem <=0.5 S Gentamicin <=4 S Levofloxacin <=2 S Meropenem <=1 S Nitrofurantoin <=32 S Piperacillin/ <=16 S Tazobactam Tetracycline <=4 S Tigecycline <=2 S Tobramycin <=4 S Trimethoprim/ <=2/38 S Sulfa Performing Locations R1: This test was performed at: [facility], [address] [place] [address], [facility] , , Normal [facility] Comment on above: Performed By: #### 2 [id number] #### [facility] [address] [place] [address] Ambulatory Visit Summaryon 0 12-22-2022 Ambulatory Visit Summary NURY MOURA :1935 Visit Date:12/22/2022 Ambulatory Visit Instructions Your Diagnosis Acute UTI Tests Performed Urnls Dip Stick Auto w/o Microscopy POC [id number] Your Care Team Attending Physician - LANA ROSARIO PA-C Primary Care Physician - NAMRATA ALEXANDRE CNP This Is Your Medications List amitriptyline anastrozole apixaban (Eliquis 2.5 mg oral tablet) aspirin furosemide (furosemide 80 mg Tab) hydrALAZINE levothyroxine melatonin (melatonin 3 mg Tab) metoprolol (Metoprolol succinate 25 mg ER Tablet) multivitamin (Hair, Skin, & Nails Gummies) niacin Procedures Performed Cystourethroscopy with dilation of urethral stricture (04/11/2022), Cystourethroscopy with dilation of urethral stricture (05/22/2019), Cataract extraction and insertion of intraocular lens (02/11/2019), Cystourethroscopy with dilation of urethral stricture (12/10/2017), Biopsy of breast, Cataract care, Colonoscopy, Mastectomy of left breast, Tonsillectomy, Tubal ligation. What to do next Scheduled Follow-Up Appointments Sunday 2:00 PM EDT With: LANA ROSARIO PA-C Where: [facility] LAB Carotid Artery Dupl ex Ultrasounon 11-16-2022 VAS LAB Carotid Artery Duplex Ultrasoun [address], [place] [address] Vascular Lab Report Carotid Artery Duplex Ultrasound Patient Name: NURY Reading Physician: [id number] Wai Neal MD, [facility] Study Date: 11/16/2022 Referring ZACK LOPES Physician: MRN/PID: [id number] PCP: Nicola Walker Accession/Order#: [id number] CC Report to: Date of : 1935 Technologist: Edith Vazquez RDCS, [facility] Gender: F Technologist 2: Admission Status: Outpatient Location Performed: [facility] Diagnosis/ICD: R09.89-Other specified symptoms and signs involving the circulatory and respiratory systems Indication: HTN, Hyperlipidemia, TIA-2001, Orthostatic Dizziness, CKD-Stage V/on Dailysis, Overweight, Atrial Fibrillation Procedure/CPT: 04429 Cerebrovascular Carotid Duplex scan complete-[id number] CONCLUSIONS: Right Carotid: Findings are consistent with less than 50% stenosis of the right proximal internal carotid artery. Laminar flow seen by color Doppler. There are elevated velocities in the right ECA that are suggestive of disease. There is a >50% stenosis noted in the right external carotid artery. No evidence of hemodynamically significant stenosis of the right common carotid artery. The right vertebral artery is patent with antegrade flow. No significant changes since 2020. Left Carotid: Findings are consistent with less than 50% stenosis of the left proximal internal carotid artery. Laminar flow seen by color Doppler. Left external carotid artery appears patent with no evidence of stenosis. No evidence of hemodynamically significant stenosis of the left common carotid artery. The left vertebral artery is patent with antegrade flow. No significant changes since 2020. Imaging AND Doppler Findings: Right Plaque Morph: The proximal right internal carotid artery demonstrates calcified, irregular and heterogenous plaque. The proximal right external carotid artery demonstrates irregular and calcified plaque. The distal right common carotid artery demonstrates irregular and calcified plaque. Left Plaque Morph: The proximal left external carotid artery demonstrates irregular and calcified plaque. The distal left common carotid artery demonstrates irregular and calcified plaque. Right Left PSV EDV PSV EDV 86 cm/s 9 cm/s CCA P 77 cm/s 6 cm/s 77 cm/s 9 cm/s CCA M 86 cm/s 9 cm/s 75 cm/s 10 cm/s CCA D 64 cm/s 8 cm/s 84 cm/s 20 cm/s ICA P 90 cm/s 15 cm/s 102 cm/s 14 cm/s ICA M 86 cm/s 21 cm/s 92 cm/s 17 cm/s ICA D 108 cm/s 21 cm/s 176 cm/s ECA 92 cm/s 25 cm/s Vertebral 42 cm/s Right Left ICA/CCA Ratio 1.1 1.4 [id number] Wai Neal MD, FACC Final Normal 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 (585.6) (N18.6,Z99.2) Paroxysmal atrial fibrillation (427.31) (I48.0) HTN (hypertension) (401.9) (I10) Anticoagulated (V58.61) (Z79.01) Overweight with body mass index (BMI) of 25 to 25.9 in adult (278.02,V85.21) (E66.3,Z68.25) Never a smoker Carotid bruit (785.9) (R09.89) Orders Carotid bruit VASC LAB Carotid Artery Duplex Ultrasound; Status:Hold For - Scheduling,Retrospe ctive Authorization; Requested for:[id number]; Laterality : Bilateral Overweight with body mass index (BMI) of 25 to 25.9 in adult Healthy Weight Tips; Status:Complete - Retrospective Authorization; Done: [id number] Some eating tips that can help you lose weight.; Status:Complete - Retrospective Authorization; Done: [id number] SocHx: Never a smoker Tobacco Use Screening; Status:Complete; Done: [id number] Unlinked Stop: amLODIPine Besylate 2.5 MG Oral Tablet Patient Instructions Please bring all medicines, vitamins, and herbal supplements with you when you come to the office. Prescriptions will not be filled unless you are compliant with your follow up appointments or have a follow up appointment scheduled as per instruction of your physician. Refills should be requested at the time of your visit. Follow up in 6 months Chief Complaint NURY MOURA is being seen for an annual follow-up of. History of Present Illness Patient returns in follow-up of problems as noted. In the interim she is done relatively well but she describes a lot of orthostatic symptoms and fatigue particularly following her dialysis sessions. It appears her blood pressure is actually aggressively managed and probably excessively so and because of this I recommend stopping amlodipine. Her atrial fibrillation appears to be asymptomatic and/or inconsequential. She denies symptoms. It is frequent in duration may be permanent. She is adequately protected with antithrombotic therapy. She expresses some concern regarding her previous diagnosis of carotid disease and carotid bruit and chart review demonstrates has been a long time since carotid ultrasonography has been done because of this repeat imaging will be performed. Her increased body mass index is mild but we did advocate the merits of caloric restriction. Surgical History Problems History of Ankle surgery History of Arteriovenous fistula creation procedure History of Complete colonoscopy History of Mastectomy Current Meds Medication NameInstruction amLODIPine Besylate 2.5 MG Oral TabletTAKE 1 TABLET DAILY. Eliquis 2.5 MG Oral Tablettake 1 tablet by mouth twice a day Furosemide 80 MG Oral TabletTAKE 1 TABLET BY MOUTH EVERY DAY Levothyroxine Sodium 75 MCG Oral TabletTAKE 1 TABLET BY MOUTH EVERY DAY Metoprolol Succinate ER 25 MG Oral Tablet Extended Release 24 Hourtake 1/2 tablet by mouth daily Allergies Medication amiodarone Adverse Reaction; Ulcers, sores in mouth; Recorded By: Pat Denton; 12/20/2020 11:57:15 AM lisinopril Adverse Reaction; Cough; Recorded By: Pat Denton; 12/20/2020 11:57:15 AM Macrobid Adverse Reaction; Itching; Rash; Recorded By: Pat Denton; 12/20/2020 11:57:15 AM Neosporin OINT Adverse Reaction; Rash; Recorded By: Pat Denton; 12/20/2020 11:57:15 AM predniSONE Adverse Reaction; Itching; 23 Nov 2021; Recorded By: Kathy Cueva; 12/28/2021 2:18:13 PM Sulfa Drugs Adverse Reaction; Unknown; Recorded By: Pat Denton; 12/20/2020 11:57:15 AM Tobrex Adverse Reaction; Unknown; Recorded By: Pat Denton; 12/20/2020 11:57:15 AM Social History Problems Daily caffeine consumption, 1 serving a day Never a smoker No alcohol use No illicit drug use Review of Systems Constitutional: not feeling tired. Eyes: no eyesight problems. ENT: no hearing loss and no nosebleeds. Cardiovascular: no intermittent leg claudication and as noted in HPI. Respiratory: no chronic cough and no shortness of breath. Gastrointestinal: no change in bowel habits and no blood in stools. Genitourinary: no urinary frequency. Skin: no skin rashes. Neurological: no seizures and no frequent falls. Psychiatric: no depression and not suicidal. All other systems have been reviewed and are negative for complaint. Vitals Vital Signs Recorded: [id number] 02:11PM Heart Rate62, L Radial Hklaoyeb881, LUE, Sitting Qaorjfefd43, LUE, Sitting Height5 ft Khbxsc607 lb BMI Mfuqglxhaz15.78 kg/m2 BSA Calculated1.56 Tobacco Useb) No PHQ-2 #1. Over the last 2 weeks have you felt down, depressed or hopeless? (If yes, answer PHQ-9 below)No PHQ-2 #2. Over the last 2 weeks have you felt little interest or pleasure in doing things? (If yes, answer PHQ-9 below)No Falls Screening (Age 18+)a) No falls within the last year Physical Exam Constitutional: alert and in no acute distress. Eyes: no erythema, swelling or discharge from the eye . Neck: neck is supple, symmetric, trachea midline, no masses and (more content not included)... Normal [employer] Tobacco Screening.on 023 Adult depression screening assessment No [facility] [address] DO Work Phone: Fall risk assessment a) No falls within the last year [facility] DO Work Phone: Tobacco use status [facility] b) No M -[facility] [address] DO Work Phone: MM diagnostic mammo RT w/CAD on 09-27-2022 MM diagnostic mammo RT w/CAD [facility] [address] [place] [address] [place], [place] [id number] Mammography Report Signed Patient: Nury Moura MR#: [id number] : 1935 Acct:[id number] Age/Sex: 87 / F ADM Date: 09/27/22 Loc: CT Room: Type: [facility] Attending Dr: Gurmeet Peña DO Copies to: Namrata Cagle, [place] Peña DO Ordering Provider: Gurmeet Peña DO Date of Service: 09/27/22 MM/MM diagnostic mammo RT w/CAD: Yrly mamm;Personal history of breast cancer CLINICAL DATA: Previous left mastectomy for carcinoma. RIGHT DIAGNOSTIC MAMMOGRAMS - FULL FIELD DIGITAL WITH TOMOSYNTHESIS AND CAD Tomosynthesis craniocaudal and mediolateral oblique views of the right breast were obtained using low-dose digital technique. Comparison is made to prior studies from September 14, 2016 through September 14, 2021. This examination was reviewed with the aid of CAD. There are scattered fibroglandular densities with similar asymmetries. Benign and vascular calcifications are present. There are no developing masses, typically malignant calcifications or architectural distortion. There has been no significant interval change. MM/MM diagnostic mammo RT w/CAD IMPRESSION: NO MAMMOGRAPHIC EVIDENCE OF MALIGNANCY. ROUTINE FOLLOW-UP IS RECOMMENDED IN ONE YEAR. RESULT CODE: 2 Benign Findings(s) DENSITY CODE: 2 (approximately 25-50% glandular) FOLLOW UP: 1YR The false-negative rate of mammography is approximately 10-percent. Management of a palpable abnormality must be based on clinical grounds. Patient was entered into a reminder system with a target due date for the next mammogram. Impression dictated by: Cecilia Armijo M.D.09/27/2022 2:26 PM Dictation Location: [facility] Transcribed By: JUANJOSE 09/27/22 1426 Dictated By: Cecilia Armijo MD 09/27/22 1419 Signed By: 09/27/[address] [facility] [address] CHEST WO CONon 07-18-2022 CT CHEST WO CON EXAMINATION: CT CHEST WO CON HISTORY: Solitary nodule of lung ; 4 mm left lower lobe nodule COMPARISON: CT abdomen pelvis 06/28/2022 TECHNIQUE: Axial, Coronal, and Sagittal images were created without the administration of IV contrast material. Dose reduction techniques were achieved by using automated exposure control and/or adjustment of mA and/or kV according to patient size and/or use of iterative reconstruction technique. FINDINGS: LUNGS: Several 3-4 mm nodules scattered within the lungs and a few small calcified nodules consistent with granulomas. Mild emphysematous changes. PLEURA: No mass, effusion, or pneumothorax. VASCULATURE: No abnormality. NURA: A few calcified lymph nodes. MEDIASTINUM: No mass or adenopathy. CARDIAC: Atherosclerotic disease. No pericardial effusion. AORTA: Atherosclerotic disease. No aneurysm. CHEST WALL: No mass or axillary adenopathy. BONES: No bone lesion or fracture. LIMITED ABDOMEN: No suspicious findings. Limited images of the upper abdomen. OTHER: Negative. IMPRESSION: 1. Several tiny noncalcified and a few calcified nodules scattered within the lungs; nonspecific but favoring chronic granulomatous disease. No overtly suspicious nodules. 2. Mild emphysematous changes. Electronically authenticated by: MARILEE PEREZ Date: 2022-07-18 16:30 Normal [facility] Urology Office/Clinic Noteon 07-12-2022 Urology Office/Clinic Note Chief Complai nt 3m to Cysto/UD HPI Staff PRW pt Follow up to Cysto/UD done 04/11/22 due to Urethral Stricture, Recurrent UTI, Renal Failure and Stress Incontinence. *Started on Keflex 500mg QD a15azus at that time. Finished entire script. Denies pain/burning/blood in urine. Denies UTI since procedure. Urinary leaking only with sneezing. Denies all other urinary complaints. History of Present Illness staff HPI reviewed and agree. Review of Systems PHQ Score Initial Depression Screen Score: 0 no fever, chills, malaise, myalgia. no rash/lesions. no chest pain, palpitations, or SOB. no abdominal pain, nausea, vomiting. no unilateral calf swelling, redness, pain Physical Exam Vitals & Measurements HR: 68(Peripheral) RR: 16 BP: 110/70 HT: 60 in HT: 152 cm WT: 62 kg WT: 136.4 lb BMI: 26.84 General: nontoxic, NAD Mouth: moist mucosa Lungs: normal respiratory effort Cardio: regular rate, good distal perfusion Abdomen: nondistended, no suprapubic distention or tenderness, no CVA tenderness Neurologic: Grossly normal Skin: No rashes or suspicious lesions Assessment/Plan 1. Postinfective urethral stricture in female (N35.12: Postinfective urethral stricture, not elsewhere classified, female) S/p Cysto/UD 04/11/22, 05/22/19 and 11/2017. Per procedure note 04/11/22 - diffuse C.C. lesions and moderate A.V. present. estrogen cream was discussed, but decided to hold off due to history of breast cancer. Started on Keflex 500mg daily x 60 days. completed course. See #2 2. Recurrent urinary tract infection (N39.0: Urinary tract infection, site not specified) + cultures 12/2021, 11/2021, 09/2021, and 03/2021 due to PROTEUS MIRABILIS. Negative C&S in 01/2022 and 04/2021. Pt was previously treated with Doxycycline, Cipro, and Cefuroxime. Does not take OTC UTI preventives or use estrogen cream (history of breast cancer - pt adamantly opposed despite explanation). usual symptoms of infection include frequency and odor. denies symptoms since procedure. UA today MODERATE blood and trace MALAIKA. -call office if she would become symptomatic of UTI -go to the ER if sxs would start over the weekend and call our office Sunday with update -possible increase of dilations per year or suppressive abx therapy if UTIs persist frequently Follow up in 1 year, call sooner if needed. 3. Stress incontinence (N39.3: Stress incontinence (female) (male)) Mild leaking with coughing and sneezing. Not bothersome. 4. Renal failure (N19: Unspecified kidney failure) Dialysis Sunday and Sunday x 4 yrs. Follow-up With When Contact Information ANNALISA MAYO, LANA Reid, URL [address] [place] [address] Additional Instructions: 1 year Patient Education Urinary Tract Infection, Adult Documentation recorded by the sirena Sheppard accurately reflects the services(s) I performed and decisions made by me. Authenticated by Lana Rosario PA-C on 07/12/2022 15:53:05. I, Yuli Sheppard, personally scribed for Lana Rosario PA-C on 07/11/2022 14:44:38. . 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 Medications amitriptyline, 10 mg, Oral, Once a day (at bedtime) anastrozole, 1 mg, Oral, Daily aspirin, 81 mg, Oral Eliquis 2.5 mg oral tablet furosemide 80 mg Tab, 80 mg= 1 tab(s), Oral, Daily Hair, Skin, & Nails Gummies, 1 tab(s), Chewed, Daily hydrALAZINE, 25 mg, Oral, Daily levothyroxine, 100 mcg, Oral, Daily melatonin 3 mg Tab, 3 mg= 1 tab(s), Oral, Once a day (at bedtime), PRN Metoprolol succinate 25 mg ER Tablet, 12.5 mg, Oral, Daily niacin, 1000 mg, Oral, Daily Allergies Neosporin (Unknown) Tobrex (Unknown) amiodarone (unknown) lisinopril (Unknown) nitrofurantoin (Itching, Hives) sulfa drugs (Unknown) Social History Alcohol - Denies Alcohol Use, 11/05/2018 Tobacco - Denies Tobacco Use, 11/05/2018 Never (less than 100 in lifetime) Tobacco Use:. Never Smokeless Tobacco Use:., 07/11/2022 Family History Diabetes: Mother. Myocardial infarct: Father. Immunizations Vaccine Date Status Comments SARS-CoV-2 (COVID-19) mRNAMUL.ORD![id number] 02/23/2022 Recorded 2022-03-13: TPV80 SARSCoV2 mRNA(tozinamer-korey -sucros) vac 07/12/2021 Recorded (more content not included)... Normal [facility] Comment on above: Result Comment: Elec tronically Signed By: LANA ROSARIO PA-C\.br\Date and Time Signed: 07/12/22 15:53 EDT\.br\Electronically Co-Signed By: Yuli Sheppard\.br\Date and Time Co-Signed: 07/11/22 14:47 EDT Patient Educationon 07-12-19 Patient Education Obstetrics and Gynecology Urinary Tract Infection, Adult A urinary tract infection (UTI) is an infection of any part of the urinary tract. The urinary tract includes the kidneys, ureters, bladder, and urethra. These organs make, store, and get rid of urine in the body. An upper UTI affects the ureters and kidneys. A lower UTI affects the bladder and urethra. What are the causes? Most urinary tract infections are caused by bacteria in your genital area around your urethra, where urine leaves your body. These bacteria grow and cause inflammation of your urinary tract. What increases the risk? You are more likely to develop this condition if: ? You have a urinary catheter that stays in place. ? You are not able to control when you urinate or have a bowel movement (incontinence). ? You are female and you: ? Use a spermicide or diaphragm for control. ? Have low estrogen levels. ? Are . ? You have certain genes that increase your risk. ? You are sexually active. ? You take antibiotic medicines. ? You have a condition that causes your flow of urine to slow down, such as: ? An enlarged prostate, if you are male. ? Blockage in your urethra. ? A kidney stone. ? A nerve condition that affects your bladder control (neurogenic bladder). ? Not getting enough to drink, or not urinating often. ? You have certain medical conditions, such as: ? Diabetes. ? A weak disease-fighting system (immunesystem). ? Sickle cell disease. ? Gout. ? Spinal cord injury. What are the signs or symptoms? Symptoms of this condition include: ? Needing to urinate right away (urgency). ? Frequent urination. This may include small amounts of urine each time you urinate. ? Pain or burning with urination. ? Blood in the urine. ? Urine that smells bad or unusual. ? Trouble urinating. ? Cloudy urine. ? Vaginal discharge, if you are female. ? Pain in the abdomen or the lower back. You may also have: ? Vomiting or a decreased appetite. ? Confusion. ? Irritability or tiredness. ? A fever or chills. ? Diarrhea. The first symptom in older adults may be confusion. In some cases, they may not have any symptoms until the infection has worsened. How is this diagnosed? This condition is diagnosed based on your medical history and a physical exam. You may also have other tests, including: ? Urine tests. ? Blood tests. ? Tests for STIs (sexually transmitted infections). If you have had more than one UTI, a cystoscopy or imaging studies may be done to determine the cause of the infections. How is this treated? Treatment for this condition includes: ? Antibiotic medicine. ? Thxx-jnc-kbybqya medicines to treat discomfort. ? Drinking enough water to stay hydrated. If you have frequent infections or have other conditions such as a kidney stone, you may need to see a health care provider who specializes in the urinary tract (urologist). In rare cases, urinary tract infections can cause sepsis. Sepsis is a life-threatening condition that occurs when the body responds to an infection. Sepsis is treated in the hospital with IV antibiotics, fluids, and other medicines. Follow these instructions at home: Medicines ? Take nnjd-pdg-irxmokd and prescription medicines only as told by your health care provider. ? If you were prescribed an antibiotic medicine, take it as told by your health care provider. Do not stop using the antibiotic even if you start to feel better. General instructions ? Make sure you: ? Empty your bladder often and completely. Do not hold urine for long periods of time. ? Empty your bladder after sex. ? Wipe from front to back after urinating or having a bowel movement if you are female. Use each tissue only one time when you wipe. ? Drink enough fluid to keep your urine pale yellow. ? Keep all follow-up visits. This is important. Contact a health care provider if: ? Your symptoms do not get better after 1?2 days. ? Your symptoms go away and then return. Get help right away if: ? You have severe pain in your back or your lower abdomen. ? You have a fever or chills. ? You have nausea or vomiting. Summary ? A urinary tract infection (UTI) is an infection of any part of the urinary tract, which includes the kidneys, ureters, bladder, and urethra. ? Most urinary tract infections are caused by bacteria in your genital area. ? Treatment for this condition often includes antibiotic medicines. ? If you were prescribed an antibiotic medicine, take it as told by your health care provider. Do not stop using the antibiotic even if you start to feel better. ? Keep all follow-up visits. This is important. This information is not intended to replace advice given to you by your health care provider. Make sure you discuss any questions you have with your health care provider. Document Revised: 10/22/2020 Document Revie (more content not included)... Normal [facility] CT ABD/PELVIS WO CONon 06-28 CT ABD/PELVIS WO CON EXAMINATION: CT ABD/PELVIS WO CON, 06/28/2022 11:46 AM EDT HISTORY: Left lower quadrant pain COMPARISON: None. TECHNIQUE: CT scan of the abdomen and pelvis was performed without IV contrast. CT dose reduction technique was used, including Automated Exposure Control. FINDINGS: LUNG BASES: 4 mm left lower lobe nodule axial image 21. Coronary atherosclerosis. LIVER: No enlargement, atrophy, abnormal density, or significant focal lesion. BILIARY: No dilatation or calcification. PANCREAS: Severe atrophy SPLEEN: Punctate calcifications, prior granulomatous process. Nodule inferior to the spleen likely a splenule axial image 47 ADRENALS: No mass or enlargement. KIDNEYS: Bilateral cortical hypodensities, indeterminate. Bilateral cortical atrophy. No hydronephrosis or obstructing nephrolithiasis BOWEL/MESENTERY: Moderate foodstuffs distention of the stomach. Nonobstructive bowel gas pattern. Normal appendix. AORTA/VASCULAR: Extensive atherosclerosis RETROPERITONEUM: No mass or adenopathy. LYMPH NODES: No adenopathy. URINARY BLADDER: Air in the urinary bladder PELVIC ORGANS: No visible mass. Pelvic organs appropriate for patient age. ABDOMINAL WALL: No mass or hernia. BONES: No bony lesion or fracture. 20% anterior superior wedge compression fracture of L4. Mild degenerative changes. OTHER: Negative. IMPRESSION: Bilateral renal hypodensities, indeterminate Moderate colonic diverticulosis without evidence of acute diverticulitis Electronically authenticated by: IGLESIA AYOUB Date: 2022-06-28 13:55 Normal [facility] XR KUBon 06-08-2022 XR KUB [facility] [address] [place] [address] [place] [address] XRay Report Signed Patient: Nury Moura MR#: [id number] : 1935 Acct:[id number] Age/Sex: 87 / F ADM Date: 06/08/22 Loc: XD Room: Type: [facility] Attending Dr: Nicola Walker MD Copies to: Nicola Walker MD Ordering Provider: Nicola Walker MD Date of Service: 06/08/22 XR/XR KUB: ABD PAIN KUB: CLINICAL INFORMATION: Left lower quadrant abdominal pain for 8 months. COMPARISON: CT abdomen and pelvis 03/12/2021 FINDINGS: Moderate stool burden. No free air or bowel obstruction. Osseous structures demonstrate degenerative change. XR/XR KUB IMPRESSION: MODERATE STOOL BURDEN SUGGESTIVE OF UNDERLYING CONSTIPATION. Impression dictated by: Curt Peoples Jr., D.OBhavin06/08/2022 3:52 PM Dictation Location: [place] [address] Transcribed By: [facility] 06/08/22 155 Dictated By: Curt Peoples Jr, DO 06/08/221551 Signed By: 06/08/22 155 Normal [facility] Antimyeloperoxidase (MPO) Ab son 05-31-2022 Antimyeloperoxidase (MPO) Abs 3.5 High 0.0-0.9 [facility] Comment on above: Performed By: #### P R3 AB, MPO AB ####[facility] ,#### CUU, ADDONUAPLUS, CRP, CREAT, ESR, CBC ####[place] [id number] [address] Automated erythrocytes count in urine sediment (number/area)Ordered By: Melo Guzman on 05-31-2022 RBC Auto (Urine sed) [#/Area] 1-2 [HPF] 0-4 [facility] Automated leukocytes count i n urine sediment (number/area)Ordered By: Melo Guzman on 05-31-2022 WBC Auto (Urine sed) [#/Area] 20-49 [HPF] 0-4 [facility] Basophils Auto (Bld) [#/Vol] Ordered By: Melo Guzman on 05-31-2022 Basophils (Bld) [#/Vol] 0.1 10*3/uL 0.0-0.2 [facility] Basophils/100 WBC Auto (Bld) Ordered By: Melo Guzman on 05-31-2022 Basophils/100 WBC (Bld) 1.8 % . [facility] Bilirubin Test strip Ql (U)O rdered By: Melo Guzman on 05-31-2022 Bilirubin Ql (U) Negative Negative [facility] C reactive protein [Mass/vol ume] in Serum or PlasmaOrdered By: Melo Guzman on 05-31-2022 CRP [Mass/Vol] < 0.5 mg/dL 0.0-0.4 [facility] C-Reactive Proteinon 023 CRP [Mass/Vol] mg/L High 0.0-0.4 [facility] Comment on above: Result Comment: PERF ORMED BY: [facility] [address] [place] [address] PATHOLOGIST PREPRESS PROOFER YULIANA PIÑA M.D. Performed By: #### P R3 AB, MPO AB ####[facility] ,#### CUU, ADDONUAPLUS, CRP, CREAT, ESR, CBC ####[place] [id number] [address] Color Auto (U)Ordered By: Kenia Guzman on 05-31-2022 Color (U) Dark yellow Yellow [facility] Complement C3on 05-31-2022 Complement C3 121 mg/dL Normal 82-167 [facility] Comment on above: Result Comment: Perf ormed at: [address] [id number] Mental Health Advanced Practice Nurse: Shree Murray PhD, Phone: [phone] Performed By: #### C H50, C4, C3 #### [facility] , Complement C4on 05-31-2022 Complement C4 21 mg/dL Normal 12-38 [facility] Comment on above: Result Comment: PERF ORMED BY: [address] [place] [address] PATHOLOGIST PREPRESS PROOFER YULIANA PIÑA M.D. Performed By: #### C H50, C4, C3 #### [facility] , Complement Total (CH50)on Complement Total (CH50) >60 Normal >41 F [facility] Comment on above: Result Comment: Age Male Female 1 - 30 days Not Estab. Not Estab. 31 days - 6 months >32 >20 7 months - 17 years >39 >39 >17 years >41 >41 NOTE: The adult ( >17 years ) reference interval range is used to flag abnormals on this report. If the patient is 17 years old or younger, use the table above to determine out of range values. Performed at: [address] [id number] Mental Health Advanced Practice Nurse: Shree Murray PhD, Phone: [phone] PERFORMED BY: [facility] [address] [place] [address] PATHOLOGIST PREPRESS PROOFER YULIANA PIÑA M.D. Performed By: #### C H50, C4, C3 #### [facility] , Complete Blood Count Auto Di ffon 05-31-2022 Basophils (Bld) [#/Vol] 0.1 10*3/uL Normal 0.0-0.2 [facility] Comment on above: Performed By: #### P R3 AB, MPO AB ####[facility] ,#### CUU, ADDONUAPLUS, CRP, CREAT, ESR, CBC ####[address] Basophils/100 WBC (Bld) 1.8 % Normal . [facility] Comment on above: Performed By: #### P R3 AB, MPO AB ####[facility] ,#### CUU, ADDONUAPLUS, CRP, CREAT, ESR, CBC ####[address] Eosinophils (Bld) [#/Vol] 0.1 10*3/uL Normal 0.0-0.45 [facility] Comment on above: Performed By: #### P R3 AB, MPO AB ####[facility] ,#### CUU, ADDONUAPLUS, CRP, CREAT, ESR, CBC ####[address] Eosinophils/100 WBC (Bld) 2.5 % Normal . [facility] Comment on above: Performed By: #### P R3 AB, MPO AB ####[facility] ,#### CUU, ADDONUAPLUS, CRP, CREAT, ESR, CBC ####[address] Erythrocyte distribution width (RBC) [Ratio] 13.3 % Normal 11.9-15.3 [facility] Comment on above: Performed By: #### P R3 AB, MPO AB ####[facility] ,#### CUU, ADDONUAPLUS, CRP, CREAT, ESR, CBC ####[address] Hematocrit (Bld) [Volume fraction] 41.8 % Normal 34.0-46.4 [facility] Comment on above: Performed By: #### P R3 AB, MPO AB ####[facility] ,#### CUU, ADDONUAPLUS, CRP, CREAT, ESR, CBC ####[address] Hemoglobin (Bld) [Mass/Vol] 14.3 g/dL Normal 11.8-15. 4 [facility] Comment on above: Performed By: #### P R3 AB, MPO AB ####[facility] ,#### CUU, ADDONUAPLUS, CRP, CREAT, ESR, CBC ####[address] Lymphocytes (Bld) [#/Vol] 1.3 10*3/uL Normal 1.00-4.8 [facility] Comment on above: Performed By: #### P R3 AB, MPO AB ####[facility] ,#### CUU, ADDONUAPLUS, CRP, CREAT, ESR, CBC ####[address] Lymphocytes/100 WBC (Bld) 24.3 % Normal . [facility] Comment on above: Performed By: #### P R3 AB, MPO AB ####[facility] ,#### CUU, ADDONUAPLUS, CRP, CREAT, ESR, CBC ####[address] MCH (RBC) [Entitic mass] 33.3 pg Normal 24.7-34.3 [facility] Comment on above: Performed By: #### P R3 AB, MPO AB ####[facility] ,#### CUU, ADDONUAPLUS, CRP, CREAT, ESR, CBC ####[address] MCV (RBC) [Entitic vol] 97.6 fL Normal 80-100 F [facility] Comment on above: Performed By: #### P R3 AB, MPO AB ####[facility] ,#### CUU, ADDONUAPLUS, CRP, CREAT, ESR, CBC ####[address] Mean Corpuscular HGB Conc 34.1 g/dL Normal 32.0-35.0 [facility] Comment on above: Performed By: #### P R3 AB, MPO AB ####[facility] ,#### CUU, ADDONUAPLUS, CRP, CREAT, ESR, CBC ####[address] Monocytes (Bld) [#/Vol] 0.6 10*3/uL Normal 0.0-0.8 [facility] Comment on above: Performed By: #### P R3 AB, MPO AB ####[facility] ,#### CUU, ADDONUAPLUS, CRP, CREAT, ESR, CBC ####[address] Monocytes/100 WBC (Bld) 11.6 % Normal . [facility] Comment on above: Performed By: #### P R3 AB, MPO AB ####[facility] ,#### CUU, ADDONUAPLUS, CRP, CREAT, ESR, CBC ####[address] Neutrophils (Bld) [#/Vol] 3.2 10*3/uL Normal 1.8-7.7 [facility] Comment on above: Performed By: #### P R3 AB, MPO AB ####[facility] ,#### CUU, ADDONUAPLUS, CRP, CREAT, ESR, CBC ####[address] Neutrophils/100 WBC (Bld) 59.8 % Normal . [facility] Comment on above: Performed By: #### P R3 AB, MPO AB ####[facility] ,#### CUU, ADDONUAPLUS, CRP, CREAT, ESR, CBC ####[address] NRBC% 0.1 /100{WBC} Normal 0-0.5 [facility] Comment on above: Performed By: #### P R3 AB, MPO AB ####[facility] ,#### CUU, ADDONUAPLUS, CRP, CREAT, ESR, CBC ####[address] Platelet mean volume (Bld) [Entitic vol] 9.4 fL Normal 6.3-10.7 [facility] Comment on above: Performed By: #### P R3 AB, MPO AB ####[facility] ,#### CUU, ADDONUAPLUS, CRP, CREAT, ESR, CBC ####[address] Platelets (Bld) [#/Vol] 189 10*3/uL Normal 150-450 [facility] Comment on above: Performed By: #### P R3 AB, MPO AB ####[facility] ,#### CUU, ADDONUAPLUS, CRP, CREAT, ESR, CBC ####[address] RBC (Bld) [#/Vol] 4.28 10*6/uL Normal 3.60-5.00 [facility] Comment on above: Performed By: #### P R3 AB, MPO AB ####[facility] ,#### CUU, ADDONUAPLUS, CRP, CREAT, ESR, CBC ####[address] WBC (Bld) [#/Vol] 5.3 10*3/uL Normal 3.8-11.6 [facility] Comment on above: Performed By: #### P R3 AB, MPO AB ####[facility] ,#### CUU, ADDONUAPLUS, CRP, CREAT, ESR, CBC ####[place] [id number] [place] [id number] [facility] Creatinineon 05-31-2022 Creatinine [Mass/Vol] 3.13 mg/dL High 0.60-1.20 [facility] Comment on above: Performed By: #### P R3 AB, MPO AB ####[facility] ,#### CUU, ADDONUAPLUS, CRP, CREAT, ESR, CBC ####[address] GFR/1.73 sq M.predicted MDRD (S/P/Bld) [Vol rate/Area] 13.779 mL/min/{1.73_m2} Normal [facility] Comment on above: Performed By: #### P R3 AB, MPO AB ####[facility] ,#### CUU, ADDONUAPLUS, CRP, CREAT, ESR, CBC ####[address] Creatinine [Mass/volume] in Serum or PlasmaOrdered By: Melo Guzman on 05-31-2022 Creatinine [Mass/Vol] 3.13 mg/dL 0.60-1.20 [facility] Dipstick and Microscopicon 0 05-31-2022 Appearance (U) Clear Normal Clear [facility] Comment on above: Order Comment: Name Collection Type:: Clean-Voided Midstream Performed By: #### P R3 AB, MPO AB ####[facility] ,#### CUU, ADDONUAPLUS, CRP, CREAT, ESR, CBC ####[place] [id number] [address] Bacteria,Urine None Seen Normal None Seen [facility] Comment on above: Order Comment: Name Collection Type:: Clean-Voided Midstream Performed By: #### P R3 AB, MPO AB ####[facility] ,#### CUU, ADDONUAPLUS, CRP, CREAT, ESR, CBC ####[place] [id number] [facility] Bilirubin,Urine Negative Normal Negative [facility] Comment on above: Order Comment: Name Collection Type:: Clean-Voided Midstream Performed By: #### P R3 AB, MPO AB ####[facility] ,#### CUU, ADDONUAPLUS, CRP, CREAT, ESR, CBC ####[place] [id number] [facility] Color (U) Dark Yellow Critically abnormal Yellow [facility] Comment on above: Order Comment: Name Collection Type:: Clean-Voided Midstream Performed By: #### P R3 AB, MPO AB ####[facility] ,#### CUU, ADDONUAPLUS, CRP, CREAT, ESR, CBC ####[address] Glucose Ql (U) Normal Normal Normal [facility] Comment on above: Order Comment: Name Collection Type:: Clean-Voided Midstream Performed By: #### P R3 AB, MPO AB ####[facility] ,#### CUU, ADDONUAPLUS, CRP, CREAT, ESR, CBC ####[place] [id number] [facility] Hyaline Casts,Urine 9-19 High 0-8 [facility] Comment on above: Order Comment: Name Collection Type:: Clean-Voided Midstream Result Comment: PERF ORMED BY: [facility] [address] [place] [address] PATHOLOGIST PREPRESS PROOFER YULIANA PIÑA M.D. Performed By: #### P R3 AB, MPO AB ####[facility] ,#### CUU, ADDONUAPLUS, CRP, CREAT, ESR, CBC ####[place] [id number] [facility] Ketones Ql (U) Trace High Negative [facility] Comment on above: Order Comment: Name Collection Type:: Clean-Voided Midstream Performed By: #### P R3 AB, MPO AB ####[facility] ,#### CUU, ADDONUAPLUS, CRP, CREAT, ESR, CBC ####[address] Leukocyte esterase Test strip Ql (U) 3+ High Negative [facility] Comment on above: Order Comment: Name Collection Type:: Clean-Voided Midstream Performed By: #### P R3 AB, MPO AB ####[facility] ,#### CUU, ADDONUAPLUS, CRP, CREAT, ESR, CBC ####[address] Nitrite,Urine Negative Normal Negative [facility] Comment on above: Order Comment: Name Collection Type:: Clean-Voided Midstream Performed By: #### P R3 AB, MPO AB ####[facility] ,#### CUU, ADDONUAPLUS, CRP, CREAT, ESR, CBC ####[address] Occult Blood,Urine Negative Normal Negative [facility] Comment on above: Order Comment: Name Collection Type:: Clean-Voided Midstream Performed By: #### P R3 AB, MPO AB ####[facility] ,#### CUU, ADDONUAPLUS, CRP, CREAT, ESR, CBC ####[place] [id number] [facility] pH (U) 5.0 [pH] Normal 5.0-9.0 [facility] Comment on above: Order Comment: Name Collection Type:: Clean-Voided Midstream Performed By: #### P R3 AB, MPO AB ####[facility] ,#### CUU, ADDONUAPLUS, CRP, CREAT, ESR, CBC ####[address] Protein,Urine Trace High Negative [facility] Comment on above: Order Comment: Name Collection Type:: Clean-Voided Midstream Performed By: #### P R3 AB, MPO AB ####[facility] ,#### CUU, ADDONUAPLUS, CRP, CREAT, ESR, CBC ####[place] [id number] [facility] RBC,Urine 1-2 Normal 0-4 [facility] Comment on above: Order Comment: Name Collection Type:: Clean-Voided Midstream Performed By: #### P R3 AB, MPO AB ####[facility] ,#### CUU, ADDONUAPLUS, CRP, CREAT, ESR, CBC ####[address] Specificy Arjay,Urine 1.017 Normal 1.00 1-1.03 0 [facility] Comment on above: Order Comment: Name Collection Type:: Clean-Voided Midstream Performed By: #### P R3 AB, MPO AB ####[facility] ,#### CUU, ADDONUAPLUS, CRP, CREAT, ESR, CBC ####[address] Squamous Epithelial Cell,Urine 5-9 High 0-2 [facility] Comment on above: Order Comment: Name Collection Type:: Clean-Voided Midstream Performed By: #### P R3 AB, MPO AB ####[facility] ,#### CUU, ADDONUAPLUS, CRP, CREAT, ESR, CBC ####[place] [id number] [facility] Urobilinogen,Urine Normal Normal Normal [facility] Comment on above: Order Comment: Name Collection Type:: Clean-Voided Midstream Performed By: #### P R3 AB, MPO AB ####[facility] ,#### CUU, ADDONUAPLUS, CRP, CREAT, ESR, CBC ####[place] [id number] [place] [id number] [facility] WBC,Urine 20-49 High 0-4 [facility] Comment on above: Order Comment: Name Collection Type:: Clean-Voided Midstream Performed By: #### P R3 AB, MPO AB ####[facility] ,#### CUU, ADDONUAPLUS, CRP, CREAT, ESR, CBC ####[place] [id number] [facility] Eosinophils Auto (Bld) [#/Vo l]Ordered By: Melo Guzman on 05-31-2022 Eosinophils (Bld) [#/Vol] 0.1 10*3/uL 0.0-0.45 [facility] Eosinophils/100 WBC Auto (Bl d)Ordered By: Melo Guzman on 05-31-2022 Eosinophils/100 WBC (Bld) 2.5 % . [facility] Erythrocyte Sedimentation Ra inderjit 05-31-2022 ESR (Bld) [Velocity] 29 mm/h Normal 0-29 [facility] Comment on above: Result Comment: PERF ORMED BY: [facility] [address] [place] [address] PATHOLOGIST PREPRESS PROOFER YULIANA PIÑA M.D. Performed By: #### P R3 AB, MPO AB ####[facility] ,#### CUU, ADDONUAPLUS, CRP, CREAT, ESR, CBC ####[place] [id number] [facility] Erythrocyte distribution wid th Auto (RBC) [Ratio]Ordered By: Melo Guzman on 05-31-2022 Erythrocyte distribution width (RBC) [Ratio] 13.3 % 11.9-15.3 [facility] Erythrocyte sedimentation ra te by Photometric methodOrdered By: Melo Guzman on 05-31-2022 ESR Photometric method (Bld) [Velocity] 29 mm/hr 0-29 [facility] Hematocrit Auto (Bld) [Volum e fraction]Ordered By: Melo Guzman on 05-31-2022 Hematocrit (Bld) [Volume fraction] 41.8 % 34.0-46.4 [facility] Hemoglobin [Mass/volume] in BloodOrdered By: Melo Guzman on 05-31-2022 Hemoglobin (Bld) [Mass/Vol] 14.3 g/dL 11.8-15. 4 [facility] Ketones Auto test strip (U) [Mass/Vol]Ordered By: Melo Guzman on 05-31-2022 Ketones (U) [Mass/Vol] Trace Negative [facility] Laboratory - Chemistry and C hemistry - challengeOrdered By: Melo Guzman on 05-31-2022 GFR/1.73 sq M.predicted MDRD (S/P/Bld) [Vol rate/Area] 13.779 mL/min/{1.73_m2} [facility] Laboratory - UrinalysisOrder ed By: Melo Guzman on 05-31-2022 Hyaline casts LM Ql (Urine sed) 9-19 [LPF] 0-8 [facility] Leukocytes [#/volume] correc constance for nucleated erythrocytes in Blood by Automated counOrdered By: Melo Guzman on 05-31-2022 WBC corrected for nucl RBC Auto (Bld) [#/Vol] 5.3 10*3/uL 3.8-11.6 [facility] Lymphocytes Auto (Bld) [#/Vo l]Ordered By: Melo Guzman on 05-31-2022 Lymphocytes (Bld) [#/Vol] 1.3 10*3/uL 1.00-4.8 [facility] Lymphocytes/100 WBC Auto (Bl d)Ordered By: Melo Guzman on 05-31-2022 Lymphocytes/100 WBC (Bld) 24.3 % . [facility] MCH Auto (RBC) [Entitic mass ]Ordered By: Melo Guzman on 05-31-2022 MCH (RBC) [Entitic mass] 33.3 pg 24.7-34.3 [facility] MCHC Auto (RBC) [Mass/Vol]Or dered By: Melo Guzman on 05-31-2022 MCHC (RBC) [Mass/Vol] 34.1 g/dL 32.0-35.0 [facility] MCV Auto (RBC) [Entitic vol] Ordered By: Melo Guzman on 05-31-2022 MCV (RBC) [Entitic vol] 97.6 fL 80-100 F [facility] Monocytes Auto (Bld) [#/Vol] Ordered By: Melo Guzman on 05-31-2022 Monocytes (Bld) [#/Vol] 0.6 10*3/uL 0.0-0.8 [facility] Monocytes/100 WBC Auto (Bld) Ordered By: Melo Guzman on 05-31-2022 Monocytes/100 WBC (Bld) 11.6 % . [facility] Myeloperoxidase Ab [Units/vo lume] in Serum by ImmunoassayOrdered By: Melo Guzman on 05-31-2022 Myeloperoxidase Ab IA Qn (S) 3.5 units 0.0-0.9 [facility] Neutrophils Auto (Bld) [#/Vo l]Ordered By: Melo Guzman on 05-31-2022 Neutrophils (Bld) [#/Vol] 3.2 10*3/uL 1.8-7.7 [facility] Neutrophils/100 WBC Auto (Bl d)Ordered By: Melo Guzman on 05-31-2022 Neutrophils/100 WBC (Bld) 59.8 % . [facility] Nitrite Test strip Ql (U)Ord ered By: Melo Guzman on 05-31-2022 Nitrite Ql (U) Negative Negative [facility] No Panel InformationOrdered By: Melo Guzman on 05-31-2022 Total Complement (CH50) >60 U/mL >41 F [facility] Comment on above: Age Male Female 1 - 30 days Not Estab. Not Estab. 31 days - 6 months >32 >20 7 months - 17 years >39 >39 >17 years >41 >41 NOTE: The adult ( >17 years ) reference interval range is used to flag abnormals on this report. If the patient is 17 years old or younger, use the table above to determine out of range values.Performed at: [facility] [employer] [id number] Director: Shree Murray PhD, Phone: [phone] Pharmacy Creatinine Clearance (Chem N/A [facility] Nucleated erythrocytes [Pres ence] in Blood by Automated countOrdered By: Melo Guzman on 05-31-2022 Nucleated RBC Auto Ql (Bld) 0.1 /100{WBC} 0-0.5 [facility] Platelet mean volume Auto (B ld) [Entitic vol]Ordered By: Melo Guzman on 05-31-2022 Platelet mean volume (Bld) [Entitic vol] 9.4 fL 6.3-10.7 [facility] Platelets Auto (Bld) [#/Vol] Ordered By: Melo Guzman on 05-31-2022 Platelets (Bld) [#/Vol] 189 10*3/uL 150-450 [facility] Protein Auto test strip (U) [Mass/Vol]Ordered By: Melo Guzman on 05-31-2022 Protein (U) [Mass/Vol] Trace mg/dL Negative F [facility] Proteinase 3 (PR3) Antibodie son 05-31-2022 Proteinase 3 (PR3) Antibodies 0.9 Normal 0.0-0.9 [facility] Comment on above: Result Comment: Perf ormed at: [facility] [address] [id number] Mental Health Advanced Practice Nurse: Melba Mckenna MD, Phone: [phone] PERFORMED BY: [facility] [address] [place] [address] PATHOLOGIST PREPRESS PROOFER YULIANA PIÑA M.D. Performed By: #### P R3 AB, MPO AB ####[facility] ,#### CUU, ADDONUAPLUS, CRP, CREAT, ESR, CBC ####[facility] [id number] Proteinase 3 Ab [Units/volum e] in Serum by ImmunoassayOrdered By: Melo Guzman on 05-31-2022 Proteinase 3 Ab IA Qn (S) 0.9 units 0.0-0.9 [facility] Comment on above: Performed at: [facility] [address] [id number] Director: Melba Mckenna MD, Phone: [phone] RBC Auto (Bld) [#/Vol]Ordere d By: Melo Guzman on 05-31-2022 RBC (Bld) [#/Vol] 4.28 10*6/uL 3.60-5.00 [facility] Serum or plasma complement C 3 measurement (mass/volume)Ordered By: Melo Guzman on 05-31-2022 Complement C3 [Mass/Vol] 121 mg/dL 82-167 [facility] Comment on above: Performed at: [place] [id number] Director: Shree Murray PhD, Phone: [phone] Serum or plasma complement C 4 measurement (mass/volume)Ordered By: Melo Guzman on 05-31-2022 Complement C4 [Mass/Vol] 21 mg/dL 12-38 [facility] Specific gravity Auto test s trip (U) [Rel density]Ordered By: Melo Guzman on 05-31-2022 Specific gravity (U) [Rel density] 1.017 1.001-1.03 0 [facility] Squamous epithelial cells de tection in urine sediment by light microscopyOrdered By: Melo Guzman on 05-31-2022 Epithelial cells.squamous LM Ql (Urine sed) 5-9 [HPF] 0-2 [facility] Urine Cultureon 05-31-2022 Bacteria identified Cx Nom (U) 15,000 colonies/ml mixed bacterial skin contaminants 2 Days PERFORMED BY: [facility] [address] [facility] [place] [address] PATHOLOGIST PREPRESS PROOFER YULIANA PIÑA M.D. Normal [facility] Comment on above: Performed By: #### P R3 AB, MPO AB ####[facility] ,#### CUU, ADDONUAPLUS, CRP, CREAT, ESR, CBC ####[facility] [id number] [place] [address] [facility] Urine bacteria detection by automated methodOrdered By: Melo Guzman on 05-31-2022 Bacteria Auto Ql (U) None seen None Seen [facility] Urine clarity by refractomet ry automatedOrdered By: Melo Guzman on 05-31-2022 Clarity Refractometry automated (U) Clear Clear [facility] Urine culture routineOrdered By: Melo Guzman on 05-31-2022 Bacteria identified Cx Nom (U) 2 Days [facility] Urine glucose measurement by automated test strip (mass/volume)Ordered By: Melo Guzman on 05-31-2022 Glucose Auto test strip (U) [Mass/Vol] Normal mg/dL Normal [facility] Urine hemoglobin detection b y automated test stripOrdered By: Melo Guzman on 05-31-2022 Hemoglobin Auto test strip Ql (U) Negative Negative [facility] Urine leukocyte esterase det ection by automated test stripOrdered By: Melo Guzman on 05-31-2022 Leukocyte esterase Auto test strip Ql (U) 3+ Negative [facility] Urobilinogen Auto test strip (U) [Mass/Vol]Ordered By: Melo Guzman on 05-31-2022 Urobilinogen (U) [Mass/Vol] Normal mg/dL Normal [facility] WBC Auto (Bld) [#/Vol]Ordere d By: Melo Guzman on 05-31-2022 WBC (Bld) [#/Vol] 5.3 10*3/uL 3.8-11.6 [facility] XR hip LT min 2V(w/wo pelvis )*on 05-31-2022 XR hip LT min 2V(w/wo pelvis)* [facility] [place] [address] XRay Report Signed Patient: Nury Moura MR#: [id number] : 1935 Acct:[id number] Age/Sex: 87 / F ADM Date: 05/31/22 Loc: XD Room: Type: [facility] Attending Dr: Namrata Cagle STAMP ANALYST-C Copies to: Namrata Cagle CNP Ordering Provider: Namrata Cagle CNP Date of Service: 05/31/22 XR/XR hip LT min 2V(w/wo pelvis)*: M25.552 2 views of the left hip with single view pelvis plain film COMPARISON:None HISTORY:Left hip pain since September Acute findings:None Degenerative change:Mild degenerative marginal spurring of both hips present. Mild SI joint degeneration seen. Soft tissue findings:Unremarkab le Joint effusion:None Postop changes:None XR/XR hip LT min 2V(w/wo pelvis)* IMPRESSION:Mild degeneration. Impression dictated by: Magen Sheth M.D.05/31/2022 5:39 PM Dictation Location: [place] [address] Transcribed By: [facility] 05/31/221738 Dictated By: Magen Sheth DO 05/31/221738 Signed By: 05/31/221738 Normal [facility] pH Auto test strip (U)Ordere d By: Melo Guzman on 05-31-2022 pH (U) 5.0 [pH] 5.0-9.0 [facility] CBC AUTO DIFFon 04-18-2022 BASO # 0.1 103/ul Normal 0.0-0.1 [facility] Comment on above: Performed By: #### C BC #### [facility] [address] [place] [address] Dr. Farida Aranda Basophils/100 WBC (Bld) 0.9 % Normal 0.2-2.0 [facility] Comment on above: Performed By: #### C BC #### [facility] [address] [place] [address] Dr. Farida Aranda EO # 0.2 103/ul Normal 0.0-0.7 [facility] Comment on above: Performed By: #### C BC #### [facility] [address] [place] [address] [address] Farida Aranda Eosinophils/100 WBC (Bld) 3.4 % Normal 0.9-7.0 [facility] Comment on above: Performed By: #### C BC #### [facility] [address] [place] [address] [address] Farida Aranda Erythrocyte distribution width (RBC) [Ratio] 12.6 % Normal 11.0-15.0 [facility] Comment on above: Performed By: #### C BC #### [facility] [address] [place] [address] Dr. Farida Aranda Hematocrit (Bld) [Volume fraction] 45.5 % Normal 36.0-48.0 [facility] Comment on above: Performed By: #### C BC #### [facility] [address] [place] [address] Dr. Farida Aranda Hemoglobin (Bld) [Mass/Vol] 14.9 g/dL Normal 12.0-16. 0 [facility] Comment on above: Performed By: #### C BC #### [facility] [address] [place] [address] Dr. Farida Aranda IG # 0.01 10e3/ul Normal 0.00-0.03 [facility] Comment on above: Performed By: #### C BC #### [facility] [address] [place] [address] Dr. Farida Aranda IG % 0.2 % Normal 0.0-0.5 [facility] Comment on above: Performed By: #### C BC #### [facility] [address] [place] [address] Dr. Farida Aranda LYMPH # 1.6 103/ul Normal 1.2-3.8 [facility] Comment on above: Performed By: #### C BC #### [facility] [address] [place] [address] Dr. Farida Aranda Lymphocytes/100 WBC (Bld) 24.6 % Normal 20.5-60.0 [facility] Comment on above: Performed By: #### C BC #### [facility] [address] [place] [address] Dr. Farida Aranda MANUAL DIFF REQ NO Normal [facility] Comment on above: Performed By: #### C BC #### [facility] [address] [place] [address] Dr. Farida Aranda MCH (RBC) [Entitic mass] 32.6 pg Normal 26.7-34.0 [facility] Comment on above: Performed By: #### C BC #### [facility] [address] [place] [address] Dr. Farida Aranda MCHC (RBC) [Mass/Vol] 32.7 g/dL Normal 29.9-35.2 [facility] Comment on above: Performed By: #### C BC #### [facility] [address] [address] [address] Farida Aranda MCV (RBC) [Entitic vol] 99.6 fL Critically high 81.0-99 .0 [facility] Comment on above: Performed By: #### C BC #### [facility] [address] [address] [address] Farida Aranda MONO # 0.6 103/ul Normal 0.3-0.8 [facility] Comment on above: Performed By: #### C BC #### [facility] [address] [place] [address] Dr. Farida Aranda Monocytes/100 WBC (Bld) 8.5 % Normal 1.7-12.0 [facility] Comment on above: Performed By: #### C BC #### [facility] [address] [place] [address] Dr. Farida Aranda NEUT # 4.0 103/ul Normal 1.4-6.5 [facility] Comment on above: Performed By: #### C BC #### [facility] [address] [place] [address] Dr. Farida Aranda Neutrophils/100 WBC (Bld) 62.4 % Normal 43.0-75.0 [facility] Comment on above: Performed By: #### C BC #### [facility] [address] [place] [address] Dr. Farida Aranda Platelet mean volume (Bld) [Entitic vol] 9.6 fL Normal 9.5-13.5 [facility] Comment on above: Performed By: #### C BC #### [facility] [address] [place] [address] Dr. Farida Aranda PLT 200 103/ul Normal 150-450 [facility] Comment on above: Performed By: #### C BC #### [facility] [address] [place] [address] Dr. Farida Aranda RBC 4.57 106/ul Normal 4.20-5.40 [facility] Comment on above: Performed By: #### C BC #### [facility] [address] [place] [address] Dr. Farida Aranda WBC 6.5 103/ul Normal 4.0-11.0 [facility] Comment on above: Performed By: #### C BC #### [facility] [address] [place] [address] Dr. Farida Aranda CRPon 04-18-2022 CRP 0.3 mg/dL Normal <=1.0 [facility] Comment on above: Performed By: #### U AMIC #### [facility] [address] [place] [address] Dr. Farida Aranda FREE THYROXINE INDEX T7on FTI 3.76 Normal 1.30-4.50 [facility] Comment on above: Performed By: #### U AMIC #### [facility] [address] [place] [address] Dr. Farida Aranda T3U 38.0 % Normal 30.0-39.0 [facility] Comment on above: Performed By: #### U AMIC #### [facility] [address] [place] [address] Dr. Farida Aranda T4 [Mass/Vol] 9.90 ug/dL Normal 4.80-13.90 [facility] Comment on above: Performed By: #### U AMIC #### [facility] [address] [place] [address] Dr. Farida Aranda GLYCOHEMOGLOBIN A1Con 2022 ADA RECOMMENDATION SEE BELOW Normal [facility] Comment on above: Result Comment: ADA RECOMMENDED LIMIT 4.0 - 6.0 ADA THERAPEUTIC TARGET < 7.0 ACTION SUGGESTED > 7.0 Performed By: #### U AMIC #### [facility] [address] [place] [address] Dr. Farida Aranda Glucose [Mass/Vol] 105 mg/dL Normal [facility] Comment on above: Performed By: #### U AMIC #### [facility] [address] [place] [address] Dr. Farida Aranda HbA1c (Bld) [Mass fraction] 5.3 % Normal 4.5-6.2 [facility] Comment on above: Performed By: #### U AMIC #### [facility] [address] [address] [address] Farida Aranda PROF 14(COMP METB)on 023 Albumin [Mass/Vol] 3.8 g/dL Normal 3.4-5.0 [facility] Comment on above: Performed By: #### U AMIC #### [facility] [address] [address] [address] Farida Aranda Albumin/Globulin [Mass ratio] 0.9 {ratio} Normal [facility] Comment on above: Performed By: #### U AMIC #### [facility] [address] [address] [address] Farida Aranda ALP [Catalytic activity/Vol] 86 U/L Normal 46-116 [facility] Comment on above: Performed By: #### U AMIC #### [facility] [address] [address] [address] Farida Aranda ALT [Catalytic activity/Vol] 26 U/L Normal 14-59 [facility] Comment on above: Performed By: #### U AMIC #### [facility] [address] [address] [address] Farida Aranda Anion gap [Moles/Vol] 11.3 mmol/L Normal [place] Comment on above: Performed By: #### U AMIC #### [facility] [address] [address] [address] Farida Aranda AST [Catalytic activity/Vol] 24 U/L Normal 15-37 [facility] Comment on above: Performed By: #### U AMIC #### [facility] [address] [address] [address] Farida Aranda Bilirubin [Mass/Vol] 0.7 mg/dL Normal 0.2-1.0 [facility] Comment on above: Performed By: #### U AMIC #### [facility] [address] [address] [address] Farida Aranda Calcium [Mass/Vol] 10.5 mg/dL Critically high 8.5-10.1 [facility] Comment on above: Performed By: #### U AMIC #### [facility] [address] [address] [address] Farida Aranda Chloride [Moles/Vol] 96 mmol/L Critically low 98-107 [facility] Comment on above: Performed By: #### U AMIC #### [facility] [address] [address] [address] Farida Aranda CO2 [Moles/Vol] 33.5 mmol/L Critically high 21.0-32.0 [facility] Comment on above: Performed By: #### U AMIC #### [facility] [address] [address] [address] Farida Aranda Creatinine [Mass/Vol] 2.28 mg/dL Critically high 0.55-1.02 [facility] Comment on above: Performed By: #### U AMIC #### [facility] [address] [address] [address] Farida Aranda EGFR-AF SRI LANKAN 24 mL/min/1.73m2 Critically low >=60 [facility] Comment on above: Performed By: #### U AMIC #### [facility] [address] [place] [address] Dr. Farida Aranda EGFR-NON AF SRI LANKAN 20 mL/min/1.73m2 Critically low >=60 [facility] Comment on above: Performed By: #### U AMIC #### [facility] [address] [address] [address] Farida Aranda Globulin (S) [Mass/Vol] 4.1 g/dL Normal [facility] Comment on above: Performed By: #### U AMIC #### [facility] [address] [address] [address] Farida Aranda Glucose [Mass/Vol] 106 mg/dL Normal 74-106 [facility] Comment on above: Performed By: #### U AMIC #### [facility] [address] [address] [address] Farida Aranda Potassium [Moles/Vol] 3.8 mmol/L Normal 3.5-5.1 [facility] Comment on above: Performed By: #### U AMIC #### [facility] [address] [address] [address] Farida Aranda Protein [Mass/Vol] 7.9 g/dL Normal 6.4-8.2 [facility] Comment on above: Performed By: #### U AMIC #### [facility] [address] [address] [address] Farida Aranda Sodium [Moles/Vol] 137 mmol/L Normal 136-145 [facility] Comment on above: Performed By: #### U AMIC #### [facility] [address] [address] [address] Farida Aranda Urea nitrogen [Mass/Vol] 24.0 mg/dL Critically high 7.0-18 .0 [facility] Comment on above: Performed By: #### U AMIC #### [facility] [address] [address] [address] Farida Aranda Urea nitrogen/Creatinine [Mass ratio] 10.5 mg/mg Normal [facility] Comment on above: Performed By: #### U AMIC #### [facility] [address] [address] [address] Farida Aranda SED [facility] 2022 SED RATE 19 mm/hr Normal <=30 [facility] Comment on above: Performed By: #### U AMIC #### [facility] [address] [address] [address] Farida Aranda TSHon 04-18-2022 TSH 1.051 uIU/mL Normal 0.358-3.74 0 [facility] Comment on above: Performed By: #### U AMIC #### [facility] [address] [address] [address] Farida Aranda Consent for Procedure/Surger yon 04-12-2022 Consent for Procedure/Surgery [id number] Normal [facility] Ambulatory Visit Summaryon 0 04-11-2022 Ambulatory Visit Summary NURY MOURA :1935 Visit Date:04/11/2022 Ambulatory Visit Instructions Your Diagnosis Postinfective urethral stricture in female Recurrent urinary tract infection Renal failure Stress incontinence Your Care Team Attending Physician - Syd OCHOA MD Primary Care Physician - NAMRATA ALEXANDRE CNP This Is Your Medications List cephalexin (Keflex 250 mg Cap) cephalexin (Keflex 500 mg Cap) Contact prescribing physician if questions or concerns amitriptyline anastrozole aspirin furosemide (furosemide 80 mg Tab) hydrALAZINE levothyroxine melatonin (melatonin 3 mg Tab) metoprolol (Metoprolol succinate 25 mg ER Tablet) multivitamin (Hair, Skin, & Nails Gummies) niacin warfarin (Coumadin) Procedures Performed Cystoscopy (04/11/2022), Cystourethroscopy with dilation of urethral stricture (05/22/2019), Cataract extraction and insertion of intraocular lens (02/11/2019), Cystourethroscopy with dilation of urethral stricture (12/10/2017), Biopsy of breast, Cataract care, Colonoscopy, Hip replacement, Mastectomy of left breast, Tonsillectomy, Tubal ligation. Discharge Vitals Height 152 cm Height 60 in Weight 70.82 kg Weight 155.804 lb BMI 30.65 What to do next You Need to Schedule the Following Appointments Follow Up with LANA ROSARIO PA-C, URL When: Where: [address] [place] [address] Medications What How Much When Instructions Changed cephalexin (Keflex 250 mg Cap) 1 Capsules By Mouth Every day Take 1 capsule the day before the procedure and 1 capsule after the procedure Changed cephalexin (Keflex 500 mg Cap) 1 Capsules By Mouth Every day Duration: 60 Days Pickup at [facility]/pharmacy #[id number] Unchanged amitriptyline 10 Milligram By Mouth Once a day (at bedtime) Contact prescribing physician if questions or concerns Unchanged anastrozole 1 Milligram By Mouth Every day Contact prescribing physician if questions or concerns Unchanged aspirin 81 Milligram By Mouth Contact prescribing physician if questions or concerns Unchanged furosemide (furosemide 80 mg Tab) 1 Tablets By Mouth Every day Contact prescribing physician if questions or concerns Unchanged hydrALAZINE 25 Milligram By Mouth Every day Contact prescribing physician if questions or concerns Unchanged levothyroxine 100 Microgram By Mouth Every day Contact prescribing physician if questions or concerns Unchanged melatonin (melatonin 3 mg Tab) 1 Tablets By Mouth Once a day (at bedtime) as needed for for insomnia Contact prescribing physician if questions or concerns Unchanged metoprolol (Metoprolol succinate 25 mg ER Tablet) 12.5 Milligram By Mouth Every day Contact prescribing physician if questions or concerns Unchanged multivitamin (Hair, Skin, & Nails Gummies) 1 Tablets Chewed Every day Contact prescribing physician if questions or concerns Unchanged niacin 1,000 Milligram By Mouth Every day Contact prescribing physician if questions or concerns Unchanged warfarin (Coumadin) By Mouth Every day Contact prescribing physician if questions or concerns Pharmacy Information [facility]/pharmacy #[id number]: [address] [place], [place] [id number] [phone] Allergies Neosporin (Unknown) Tobrex (Unknown) amiodarone (unknown) lisinopril (Unknown) nitrofurantoin (Itching, Hives) sulfa drugs (Unknown) Problems Ongoing - Any problem that you are currently receiving treatment for. Acute UTI Anemia Arthritis Breast cancer Hx of ocean transportation intermediary use of blood thinners Postinfective urethral stricture in female Recurrent urinary tract infection Renal failure Stress incontinence Urge incontinence Historical - Any problem that you are no longer receiving treatment for. Transient ischaemic attack Education [employer] Urodynamic Testing What is urodynamic testing? Urodynamic tests are done to determine how well your lower urinary tract is working. The lower urinary tract includes your bladder and the part of your body that drains urine from the bladder (urethra). When your kidneys filter your blood, urine is stored in your bladder until you feel the urge to urinate. Urination requires coordination between the nerves and muscles of your bladder and urethra. When your lower urinary tract is working well, you should be able to: ? Start urinating when your bladder is full. ? Empty your bladder completely. ? Control the flow of your urine. Why do I need urodynamic testing? You may need urodynamic testing to help find the cause of any of these problems: ? Leaking urine (incontinence). ? Problems starting or stopping your urine flow. ? Frequent or painful urination. ? Frequent urinary tract infections. ? Being unable to empty your bladder completely. ? Having strong urges to pass urine (urgency). ? Having a weak flow of urine. How do I prepare for the tests? ? Ask your health care provider about sammy (more content not included)... Normal [facility] Patient Educationon 04-11-19 Patient Education Urology Urodynamic Testing What is urodynamic testing? Urodynamic tests are done to determine how well your lower urinary tract is working. The lower urinary tract includes your bladder and the part of your body that drains urine from the bladder (urethra). When your kidneys filter your blood, urine is stored in your bladder until you feel the urge to urinate. Urination requires coordination between the nerves and muscles of your bladder and urethra. When your lower urinary tract is working well, you should be able to: ? Start urinating when your bladder is full. ? Empty your bladder completely. ? Control the flow of your urine. Why do I need urodynamic testing? You may need urodynamic testing to help find the cause of any of these problems: ? Leaking urine (incontinence). ? Problems starting or stopping your urine flow. ? Frequent or painful urination. ? Frequent urinary tract infections. ? Being unable to empty your bladder completely. ? Having strong urges to pass urine (urgency). ? Having a weak flow of urine. How do I prepare for the tests? ? Ask your health care provider about changing or stopping your regular medicines. This is especially important if you are taking diabetes medicines or blood thinners. ? You may be asked to avoid urinating before coming to the test so that you arrive with a full bladder. ? Tell a health care provider about: ? Any allergies you have. ? All medicines you are taking, including vitamins, herbs, eye drops, creams, and bler-oms-meqdoje medicines. ? Whether you are or may be . What are the risks of this testing? Generally, these tests are safe. However, some of the tests have risks, including: ? Discomfort. ? Frequent urge to urinate. ? Bleeding. ? Infection. ? Allergic reactions to medicines or dyes (contrast material). How is urodynamic testing done? You may have various urodynamic tests. The tests may be done separately or may all be done during one testing visit. You may be given an antibiotic medicine before or after testing to help prevent infection. The types of tests that may be done include: Uroflowmetry This test measures how much urine you pass and how long it takes to pass. ? You will urinate into a certain type of toilet or device (flowmeter). ? The device will measure the volume and the time of your urine flow. ? These measurements will be sent to a computer that creates a graph of your urine flow. Postvoid residual measurement This test measures how much urine is left in your bladder after you urinate. ? The test may be done with ultrasound. In this method, sound waves and a computer will be used to create an image of your bladder. ? The test can also be done by inserting a thin, flexible tube (catheter) into your bladder after you urinate. The remaining urine will be removed through the catheter so it can be measured. ? Remaining urine will be measured in milliliters (mL). If you have more than 100 mL left in your bladder after you urinate, your bladder is not emptying as it should. Cystometric testing This test uses a type of bladder catheter that can measure pressure. ? You may be given a medicine to numb the area (local anesthetic). ? The area around the opening of your urethra will be cleaned. ? A urinary catheter will be passed through your urethra into your bladder and used to empty your bladder completely. ? Then a measuring catheter will be placed, and your bladder will be filled with warm, germ-free (sterile) water. ? Pressure measurements will be taken: ? As your bladder fills. ? When you feel the need to urinate. ? As your bladder is emptied. ? You may be asked to cough or bear down to check for leakage. ? In some cases, your bladder may be filled with a material that shows up on X-rays (contrast material) so that X-ray pictures can be taken during the test. Electromyogram This test measures the electrical activity of the nerves and muscles of your bladder and the opening of your urethra. ? Sticky patches (electrodes) will be placed near your rectum and urethra to measure electrical activity. ? The measurements will show how well your nerves are communicating with your muscles. What happens after the testing? ? You should be able to go home right away and do your usual activities. ? You may be told to drink a glass of water every 30 minutes for the first 2 hours after testing. ? Taking a warm bath or using warm, wet cloths (warm compresses) may relieve any discomfort near your urethra. ? Contact your health care provider if you have: ? Pain. ? Blood in your urine. ? Chills. ? Fever. What do the results mean? Talk with your health care provider about what your results mean. Some common causes for abnormal results from urodynamic tests include: ? Enlarged prostate in men. ? Overactive bladder. ? Urinary tract infection. ? Nervous system diseases. (more content not included)... Normal [facility] Urology Office/Clinic Noteon 04-11-2022 Urology Office/Clinic Note Chief Complai nt Cystoscopy HPI Staff Pt is here for a Cystoscopy ABX taken History of Present Illness Tests reviewed: none. I have reviewed the previous health record information and history for this patient from Dr. Ochoa. I have reviewed and verified the staff HPI to be accurate for this encounter. There have been no associated fever, chills, flank pain, or blood in the urine. Denies any urinary infections since last encounter. Review of Systems PHQ Score Initial Depression Screen Score: 0 ROS - Provider Constitutional: denies weight loss, denies hot flashes. Eyes: denies eye problems. Gastrointestinal: denies nausea, denies vomiting. Cardiovascular: denies chest pain or angina. Integumentary: no dryness Musculoskeletal: denies musculoskeletal symptoms. ENMT: denies otolaryngeal symptoms. Respiratory: no shortness of breath. Heme/Lymph: denies easy bleeding tendency, denies easy bruising tendency. Psychiatric: no confusion, no anxiety. Genitourinary: See HPI. Physical Exam Vitals & Measurements HT: 60 in HT: 152 cm WT: 70.82 kg WT: 155.804 lb BMI: 30.65 General Appearance: alert , no acute distress, well nourished, well developed female. Genitourinary: bladder nonpalpable, no flank pain. Procedure Operative Information Anesthesia Type: Local Procedure: Local Cystoscopy with Urethral Dilation Complications: None Surgical risks, benefits, details of the procedure have been explained to the patient. Full informed consent has been obtained. Intraoperative Information Prepped: Patient is brought back to the endoscopy suite. Patient is placed in modified dorso/lithotomy position. Patient prepped in the usual fashion with Betadine solution. 2% Xylocaine Jelly is placed per Urethra. After waiting several minutes, the Cystoscope is introduced. The Urethra is: Tight The Bladder: _, Diffuse C.C. lesions. No bladder tumors stones, or anything suspicious. Moderate A.V. Trabeculated: Moderate (2) The Ureteral orifices: Show efflux of clear urine The Urethra was dilated to: _20-30 Mongolian with sounds. Specimens Removed: None Removal: Cystoscope is removed. The patient tolerated it well. Postoperative Information Patient is discharged home with antibiotic coverage. Follow up arranged. Assessment/Plan 1. Postinfective urethral stricture in female (N35.12: Postinfective urethral stricture, not elsewhere classified, female) S/p Cysto/UD done 05/22/19 and 11/2017. PVR was 23 cc on 03/14/22. Pt feels she needs another dilation. Intermittent stream and multiple UTIs. Pt had IO cysto/UD today without complication. Pt took abx prior to procedure. Pt dilated from 20-30 Fr. C.C. lesions and A.V. present on cysto today. discussed estrogen cream, but due to her breast ca history, we will hold off on this for now. Pt to start Keflex 500 mg QD x 60 days. Rx sent to pharmacy. Follow up 3 mos for OV with PRETTY Hui. 2. Recurrent urinary tract infection (N39.0: Urinary tract infection, site not specified) Positive C&S in 12/2021, 11/2021, 09/2021, and 03/2021 due to PROTEUS MIRABILIS. Negative C&S in 01/2022 and 04/2021. Pt was previously treated with Doxycycline, Cipro, and Cefuroxime. Does not take OTC UTI preventives or use estrogen cream (history of breast cancer - pt adamantly opposed despite explanation). Pt has had 2 UDs previously, UTIs improved for 1 year after. If UTIs persist after UD will need to consider other sources of recurrent UTI. Pt had IO cysto/UD today without complication. 3. Renal failure (N19: Unspecified kidney failure) Pt is on Sunday and Sunday dialysis x 4 yrs. 4. Stress incontinence (N39.3: Stress incontinence (female) (male)) Mild leaking with coughing and sneezing. Not bothersome. Follow-up With When Contact Information ANNALISA MAYO, LANA Reid, URL [address] [place] [address] Additional Instructions: Follow up 3 mos for OV Patient Education Urodynamic Testing I, Shraddha Yen, personally scribed for Dr. Ochoa on 04/11/2022 14:37:16. . Documentation recorded by the scribe, Shraddha Yen, accurately reflects the services(s) I performed and decisions made by me. Authenticated by Dr. Ochoa on 04/11/2022 14:39:54. Problem List/Past Medical History Ongoing Acute UTI Anemia Arthritis Breast cancer Hx of halfway use of blood thinners Postinfective urethral stricture in female Recurrent urinary tract infection Renal failure Stress incontinence Urge incontinence Historical Transient ischaemic attack Procedure/Surgical History Cystoscopy (04/11/2022), Cystourethroscopy with dilation of urethral stricture (05/22/2019), Cataract extraction and insertion of intraocular lens (02/11/2019), Cystourethroscopy with dilation of urethral stricture (12/10/2017), Biopsy of breast, Cataract care, Colonoscopy, Hip replacement, Mastectomy of left breast, Tonsillectomy, Tu (more content not included)... Normal [facility] Comment on above: Result Comment: Elec tronically Signed By: Syd OCHOA MD\.br\Date and Time Signed: 04/11/22 14:39 EST\.br\Electronically Co-Signed By: Shraddha Yen\.br\Date and Time Co-Signed: 04/11/22 14:37 EST CULTURE URINEon 01-31-2022 CULTURE URINE Culture Observations: LIGHT GROWTH OF MIXED GENITAL KRISTEN. NO POTENTIAL PATHOGENS SEEN. Normal [facility] Comment on above: Performed By: #### C BC #### [facility] [address] [place] [id number] [address] Farida Aranda UA RANDOM W/MICROSCOPICon BACTERIA TRACE Abnormal NONE SEEN [facility] Comment on above: Performed By: #### U AMIC #### [facility] [address] [address] [address] Farida Aranda Bilirubin Ql (U) Negative Normal NEGATIVE [facility] Comment on above: Performed By: #### U AMIC #### [facility] [address] [address] [address] Farida Aranda CAST NONE SEEN Normal NONE SEEN [facility] Comment on above: Performed By: #### U AMIC #### [facility] [address] [address] [address] Farida Aranda Clarity (U) CLEAR Normal CLEAR [facility] Comment on above: Performed By: #### U AMIC #### [facility] [address] [address] [address] Farida Aranda Color (U) LT. YELLOW Normal YELLOW [facility] Comment on above: Performed By: #### U AMIC #### [facility] [address] [place] [address] Dr. Farida Aranda Crystals LM Nom (Urine sed) NONE SEEN Normal NONE SEE N [facility] Comment on above: Performed By: #### U AMIC #### [facility] [address] [place] [address] Dr. Farida Aranda Epithelial cells LM Ql (Urine sed) FEW Abnormal NONE SEEN /RARE [facility] Comment on above: Performed By: #### U AMIC #### [facility] [address] [place] [address] Dr. Farida Aranda Glucose Ql (U) Negative Normal NEGATIVE [facility] Comment on above: Performed By: #### U AMIC #### [facility] [address] [place] [address] Dr. Farida Aranda Hemoglobin Ql (U) Negative Normal NEGATIVE [facility] Comment on above: Performed By: #### U AMIC #### [facility] [address] [address] [address] Farida Aranda Ketones Ql (U) Negative Normal NEGATIVE [facility] Comment on above: Performed By: #### U AMIC #### [facility] [address] [place] [address] Dr. Farida Aranda LEUKOCYTES TRACE Abnormal NEGATIVE [facility] Comment on above: Performed By: #### U AMIC #### [facility] [address] [address] [address] Farida Aranda MUCOUS NONE SEEN Normal NONE SEEN [facility] Comment on above: Performed By: #### U AMIC #### [facility] [address] [place] [address] Dr. Farida Aranda Nitrite Ql (U) Negative Normal NEGATIVE [facility] Comment on above: Performed By: #### U AMIC #### [facility] [address] [place] [address] Dr. Farida Aranda pH (U) 7.5 [pH] Normal 5-9 [facility] Comment on above: Performed By: #### U AMIC #### [facility] [address] [place] [address] Dr. Farida Aranda RBC NONE SEEN Abnormal 0-2 [facility] Comment on above: Performed By: #### U AMIC #### [facility] [address] [place] [address] Dr. Farida Aranda SPEC GRAVITY 1.015 Normal 1.005-<=1. 025 [facility] Comment on above: Performed By: #### U AMIC #### [facility] [address] [place] [address] Dr. Farida Aranda UA PROTEIN Negative Normal NEGATIVE/ TRACE [facility] Comment on above: Performed By: #### U AMIC #### [facility] [address] [place] [address] Dr. Farida Aranda Urobilinogen Qn (U) 0.2 {Kimberly'U}/dL Normal 0.2 - 1. 0 [facility] Comment on above: Performed By: #### U AMIC #### [facility] [address] [place] [address] Dr. Farida Aranda WBC 5-10 Abnormal NONE SEEN [facility] Comment on above: Performed By: #### U AMIC #### [facility] [address] [place] [address] Dr. Farida Aranda CULTURE URINEon 01-14-2022 CULTURE URINE Isolate 1 Proteus mirabilis >100,000 cfu/mL of ORGANISM 1 Proteus mirabilis ANTIBIOTIC M.I.C RX STATUS Ampicillin <=2 S F Ampicillin/Sulbacta m <=2 S F Piperacillin/Tazoba ctam <=4 S F Cefazolin <=4 S F Ceftazidime <=1 S F Ceftriaxone <=1 S F Ertapenem <=0.5 S F Imipenem 0.5 S F Amikacin <=2 S F Gentamicin <=1 S F Tobramycin <=1 S F Ciprofloxacin <=0.25 S F Levofloxacin <=0.12 S F Nitrofurantoin 128 R F Trimethoprim/Sulfam ethoxazole <=20 S F Normal [facility] Comment on above: Performed By: #### U AMIC #### [facility] [address] [place] [address] Dr. Farida Aranda UA RANDOM W/MICROSCOPICon BACTERIA MODERATE Abnormal NONE SEEN [facility] Comment on above: Performed By: #### U AMIC #### [facility] [address] [place] [address] Dr. Farida Aranda Bilirubin Ql (U) Negative Normal NEGATIVE [facility] Comment on above: Performed By: #### U AMIC #### [facility] [address] [place] [address] Dr. Farida Aranda CAST NONE SEEN Normal NONE SEEN [facility] Comment on above: Performed By: #### U AMIC #### [facility] [address] [place] [address] Dr. Farida Aranda Clarity (U) CLEAR Normal CLEAR [facility] Comment on above: Performed By: #### U AMIC #### [facility] [address] [place] [address] Dr. Farida Aranda Color (U) LT. YELLOW Normal YELLOW [facility] Comment on above: Performed By: #### U AMIC #### [facility] [address] [place] [address] Dr. Farida Aranda Crystals LM Nom (Urine sed) NONE SEEN Normal NONE SEE N [facility] Comment on above: Performed By: #### U AMIC #### [facility] [address] [address] [address] Farida Aranda Epithelial cells LM Ql (Urine sed) MODERATE Abnormal NONE SEEN /RARE [facility] Comment on above: Performed By: #### U AMIC #### [facility] [address] [address] [address] Farida Aranda Glucose Ql (U) Negative Normal NEGATIVE [facility] Comment on above: Performed By: #### U AMIC #### [facility] [address] [address] [address] Farida Aranda Hemoglobin Ql (U) Negative Normal NEGATIVE [facility] Comment on above: Performed By: #### U AMIC #### [facility] [address] [address] [address] Farida Aranda Ketones Ql (U) Negative Normal NEGATIVE [facility] Comment on above: Performed By: #### U AMIC #### [facility] [address] [address] [address] Farida Aranda LEUKOCYTES SMALL Abnormal NEGATIVE [facility] Comment on above: Performed By: #### U AMIC #### [facility] [address] [address] [address] Farida Aranda MUCOUS NONE SEEN Normal NONE SEEN [facility] Comment on above: Performed By: #### U AMIC #### [facility] [address] [place] [address] Dr. Farida Aranda Nitrite Ql (U) Negative Normal NEGATIVE [facility] Comment on above: Performed By: #### U AMIC #### [facility] [address] [address] [address] Farida Aranda pH (U) 7.0 [pH] Normal 5-9 [facility] Comment on above: Performed By: #### U AMIC #### [facility] [address] [place] [address] Dr. Farida Aranda RBC NONE SEEN Abnormal 0-2 [facility] Comment on above: Performed By: #### U AMIC #### [facility] [address] [place] [address] Dr. Farida Aranda SPEC GRAVITY 1.010 Normal 1.005-<=1. 025 [facility] Comment on above: Performed By: #### U AMIC #### [facility] [address] [address] [address] Farida Aranda UA PROTEIN TRACE Normal NEGATIVE/ TRACE [facility] Comment on above: Performed By: #### U AMIC #### [facility] [address] [address] [address] Farida Aranda Urobilinogen Qn (U) 0.2 {Kimberly'U}/dL Normal 0.2 - 1. 0 [facility] Comment on above: Performed By: #### U AMIC #### [facility] [address] [place] [address] Dr. Farida Aranda WBC 10-20 Abnormal NONE SEEN [facility] Comment on above: Performed By: #### U AMIC #### [facility] [address] [place] [address] Dr. 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) December 2020 carotid ultrasound R ICA 50 to 69%, LICA less than 50% Follow-up every 2 years next will be due fall 2022 Paroxysmal atrial fibrillation (427.31) (I48.0) Ausculatory RRR in office today No elevated heart rates noted at hemodialysis No antiarrhythmic Orders HTN (hypertension) Renew: Metoprolol Succinate ER 25 MG Oral Tablet Extended Release 24 Hour; take 1/2 tablet by mouth daily Paroxysmal atrial fibrillation with rapid ventricular response Renew: Eliquis 2.5 MG Oral Tablet; take 1 tablet by mouth twice a day Patient Instructions Please bring all medicines, vitamins, and herbal supplements with you when you come to the office. Prescriptions will not be filled unless you are compliant with your follow up appointments or have a follow up appointment scheduled as per instruction of your physician. Refills should be requested at the time of your visit. PLAN: Through informed decision making process incorporating patients unique circumstances, the following treatment plan will be initiated: 1. Prescription drug management of cardiovascular medication for efficacy, adherence to treatment, side effect assessment and polypharmacy. Current treatment clinically warranted and to continue without modifications. 2. Return for follow-up; in the interim, contact the office if new symptoms arise. Dr. Lopes September 2022 Chief Complaint Annual f/u: 'doing just fine' NURY MOURA is being seen for an annual follow-up of atrial fibrillation and hypertension. Patient is ambulatory with steady gait, last evaluated in clinic by Dr. Lopes September 2020. She denies hospitalization. In May 2019 was seen in the emergency department due to shortness of breath, chest x-ray with vascular congestion and was treated with IV Bumex x1 with resolution of symptoms. In September 2020 sustained a dog bite to right forearm which required surgical procedure. She presents to the office today were overall reports doing just fine, her activity has been limited due to surgical procedure on her right forearm. Basement steps - she occasionally has to go down and is tolerating without complaints. She continues to attend hemodialysis twice a week, is achieving euvolemic weight. No interruptions in therapy due to unstable vital signs. She ambulates from the parking lot into hemodialysis without any type of complaints. She reports being asymptomatic with prior atrial fibrillation. Currently denies any type of palpitations, heart rates have been optimal throughout hemodialysis. She does report recently hydralazine was transitioned over to Norvasc by rheumatology. Blood pressure has remained optimal, denies any side effects. Hypertension-optima l August 2019 HDL 55; LDL 72. Currently not on statin treatment No diabetes Overall patient is pleased with current state of cardiovascular health. At this time there are no indications for additional cardiovascular testing or need for medication changes. History of Present Illness The patient states she has been generally doing well since the last visit. Comorbid Illnesses: hypertension. Symptoms: denies chest pain at rest, denies exertional chest pain, stable dyspnea, stable fatigue, stable exercise intolerance, denies palpitations, denies edema, denies orthopnea, denies dizziness and denies orthostatic dizziness. Associated symptoms: no syncope. Her symptoms do not limit her activities. Disease Monitoring: Medications: the patient is adherent with her medication regimen. She denies medication side effects. Surgical History Problems History of Ankle surgery History of Arteriovenous fistula creation procedure History of Complete colonoscopy History of Mastectomy Current Meds Medication NameInstruction amLODIPine Besylate 2.5 MG Oral TabletTAKE 1 TABLET DAILY. Eliquis 2.5 MG Oral Tablettake 1 tablet by mouth twice a day Furosemide 80 MG Oral TabletTAKE 1 TABLET BY MOUTH EVERY DAY Levothyroxine Sodium 75 MCG Oral TabletTAKE 1 TABLET BY MOUTH EVERY DAY Metoprolol Succinate ER 25 MG Oral Tablet Extended Release 24 Hourtake 1/2 tablet by mouth daily Allergies Medication amiodarone Adverse Reaction; Ulcers, sores in mouth; Recorded By: Pat Denton; 12/20/2020 11:57:15 AM lisinopril Adverse Reaction; Cough; Recorded By: Pat Denton; 12/20/2020 11:57:15 AM Macrobid Adverse Reaction; Itching; Rash; Record (more content not included)... Normal [employer] Tobacco Screening.on 022 Adult depression screening assessment No [facility] [employer] 250 DO Work Phone: Fall risk assessment a) No falls within the last year [facility] [employer] 250 DO Work Phone: Tobacco use status CP b) No [facility] [employer] 250 DO Work Phone: Urinalysis - AUTOMATEDon Appearance (U) cloudy [employer] Other Bilirubin Ql (U) Negative [employer] Other Color (U) dark yellow [employer] Other Glucose Ql (U) Negative [employer] Other Hemoglobin Ql (U) moderate [employer] Other Ketones Ql (U) Negative [employer] Other Leukocyte esterase Test strip Ql (U) small [employer] Other Nitrite Ql (U) Negative [employer] Other pH (U) 5.5 [pH] [employer] Other Protein Ql (U) 30 [employer] Other Specific gravity (U) [Rel density] >1.030 [employer] Other Urobilinogen (U) [Mass/Vol] 0.2 mg/dL [employer] Other Urinalysis - AUTOMATED No rt [employer] Other UA RANDOM W/MICROSCOPICon BACTERIA NONE SEEN Normal NONE SEEN [facility] Comment on above: Performed By: #### U AMIC #### [facility] [address] [place] [address] Dr. Farida Aranda Bilirubin Ql (U) Negative Normal NEGATIVE [facility] Comment on above: Performed By: #### U AMIC #### [facility] [address] [place] [address] Dr. Farida Aranda CAST NONE SEEN Normal NONE SEEN [facility] Comment on above: Performed By: #### U AMIC #### [facility] [address] [place] [address] Dr. Farida Aranda Clarity (U) CLEAR Normal CLEAR [facility] Comment on above: Performed By: #### U AMIC #### [facility] [address] [place] [address] Dr. Farida Aranda Color (U) LT. YELLOW Normal YELLOW [facility] Comment on above: Performed By: #### U AMIC #### [facility] [address] [place] [address] Dr. Farida Aranda Crystals LM Nom (Urine sed) NONE SEEN Normal NONE SEE N [facility] Comment on above: Performed By: #### U AMIC #### [facility] [address] [address] [address] Farida Aranda Epithelial cells LM Ql (Urine sed) FEW Abnormal NONE SEEN /RARE [facility] Comment on above: Performed By: #### U AMIC #### [facility] [address] [address] [address] Farida Aranda Glucose Ql (U) Negative Normal NEGATIVE [facility] Comment on above: Performed By: #### U AMIC #### [facility] [address] [address] [address] Farida Aranda Hemoglobin Ql (U) Negative Normal NEGATIVE [facility] Comment on above: Performed By: #### U AMIC #### [facility] [address] [address] [address] Farida Aranda Ketones Ql (U) Negative Normal NEGATIVE [facility] Comment on above: Performed By: #### U AMIC #### [facility] [address] [address] [address] Farida Aranda LEUKOCYTES Negative Normal NEGATIVE [facility] Comment on above: Performed By: #### U AMIC #### [facility] [address] [address] [address] Farida Aranda MUCOUS NONE SEEN Normal NONE SEEN [facility] Comment on above: Performed By: #### U AMIC #### [facility] [address] [place] [address] Dr. Farida Aranda Nitrite Ql (U) Negative Normal NEGATIVE [facility] Comment on above: Performed By: #### U AMIC #### [facility] [address] [address] [address] Farida Aranda pH (U) 6.0 [pH] Normal 5-9 [facility] Comment on above: Performed By: #### U AMIC #### [facility] [address] [place] [address] Dr. Farida Aranda RBC NONE SEEN Abnormal 0-2 [facility] Comment on above: Performed By: #### U AMIC #### [facility] [address] [place] [address] Dr. Farida Aranda SPEC GRAVITY 1.015 Normal 1.005-<=1. 025 [facility] Comment on above: Performed By: #### U AMIC #### [facility] [address] [address] [address] Farida Aranda UA PROTEIN Negative Normal NEGATIVE/ TRACE [facility] Comment on above: Performed By: #### U AMIC #### [facility] [address] [address] [address] Farida Aranda Urobilinogen Qn (U) 0.2 {Kimberly'U}/dL Normal 0.2 - 1. 0 [facility] Comment on above: Performed By: #### U AMIC #### [facility] [address] [address] [address] Farida Aranda WBC 0-2 Abnormal NONE SEEN [facility] Comment on above: Performed By: #### U AMIC #### [facility] [address] [address] [address] Farida Aranda Atypical perinuclear antineu trophil cytoplasmic antibodies measurementOrdered By: Melo Guzman on 11-09-2021 Neutrophil cytoplasmic Ab.perinuclear.atypical IF (S) [Titer] <1:20 titer Neg:<1:20 [facility] Comment on above: The atypical pANCA p attern has been observed in a significant percentage of patients with ulcerative colitis, primary sclerosing cholangitis and autoimmune hepatitis. Performed at: - [facility] [id number] [facility] Advanced Practice Nurse: Melba Mckenna MD, Phone: [phone] Performed at: - [facility] [id number] Mental [facility] Advanced Practice Nurse: Shree Murray PhD, Phone: [phone] Basophils Auto (Bld) [#/Vol] Ordered By: Melo Guzman on 11-09-2021 Basophils (Bld) [#/Vol] 0.0 10*3/uL 0.0-0.2 [facility] Basophils/100 WBC Auto (Bld) Ordered By: Melo Guzman on 11-09-2021 Basophils/100 WBC (Bld) 0.8 % . [facility] Blood hemoglobin measurement (mass/volume)Ordered By: Melo Guzman on 11-09-2021 Hemoglobin (Bld) [Mass/Vol] 10.9 g/dL 11.8-15. 4 [facility] Blood leukocytes automated c ount (number/volume)Ordered By: Melo Guzman on 11-09-2021 WBC (Bld) [#/Vol] 6.2 10*3/uL 4.5-11.0 [facility] C reactive protein [Mass/vol ume] in Serum or PlasmaOrdered By: Melo Guzman on 11-09-2021 CRP [Mass/Vol] 0.9 mg/dL 0.0-1.0 [facility] Creatinine and Glomerular fi ltration rate.predicted panel (S/P/Bld)Ordered By: Melo Guzman on 11-09-2021 Creatinine [Mass/Vol] 2.72 mg/dL 0.44-1.03 [facility] Eosinophils Auto (Bld) [#/Vo l]Ordered By: Melo Guzman on 11-09-2021 Eosinophils (Bld) [#/Vol] 0.1 10*3/uL 0.0-0.45 [facility] Eosinophils/100 WBC Auto (Bl d)Ordered By: Melo Guzman on 11-09-2021 Eosinophils/100 WBC (Bld) 1.4 % . [facility] Erythrocyte distribution wid th Auto (RBC) [Ratio]Ordered By: Melo Guzman on 11-09-2021 Erythrocyte distribution width (RBC) [Ratio] 13.9 % 11.9-15.3 [facility] Erythrocyte sedimentation ra te by Photometric methodOrdered By: Melo Guzman on 11-09-2021 ESR Photometric method (Bld) [Velocity] 35 mm/hr 0-29 [facility] Estimated glomerular filtrat ion rate (GFR) non- AmericanOrdered By: Melo Guzman on 11-09-2021 GFR/1.73 sq M.predicted among non-blacks MDRD (S/P/Bld) [Vol rate/Area] 17 mL/Min [facility] Hematocrit Auto (Bld) [Volum e fraction]Ordered By: Melo Guzamn on 11-09-2021 Hematocrit (Bld) [Volume fraction] 32.6 % 34.0-46.4 [facility] - Hematology and Cell countsOrdered By: Melo Guzman on 11-09-2021 Nucleated RBC/100 WBC (Bld) [Ratio] 0.1 % 0-0.5 [facility] Lymphocytes Auto (Bld) [#/Vo l]Ordered By: Melo Guzman on 11-09-2021 Lymphocytes (Bld) [#/Vol] 1.0 10*3/uL 1.00-4.8 [facility] Lymphocytes/100 WBC Auto (Bl d)Ordered By: Melo Guzman on 11-09-2021 Lymphocytes/100 WBC (Bld) 16.2 % . [facility] MCH Auto (RBC) [Entitic mass ]Ordered By: Melo Guzman on 11-09-2021 MCH (RBC) [Entitic mass] 34.2 pg 24.7-34.3 [facility] MCHC Auto (RBC) [Mass/Vol]Or dered By: Melo Guzman on 11-09-2021 MCHC (RBC) [Mass/Vol] 33.4 g/dL 32.0-35.0 [facility] MCV Auto (RBC) [Entitic vol] Ordered By: Melo Guzman on 11-09-2021 MCV (RBC) [Entitic vol] 102.3 fL 80-100 [facility] Monocytes Auto (Bld) [#/Vol] Ordered By: Melo Guzman on 11-09-2021 Monocytes (Bld) [#/Vol] 0.5 10*3/uL 0.0-0.8 [facility] Monocytes/100 WBC Auto (Bld) Ordered By: Melo Guzman on 11-09-2021 Monocytes/100 WBC (Bld) 8.6 % . [facility] Myeloperoxidase Ab [Units/vo lume] in Serum by ImmunoassayOrdered By: Melo Guzman on 11-09-2021 Myeloperoxidase Ab IA Qn (S) 3.9 units 0.0-0.9 [facility] Neutrophils Auto (Bld) [#/Vo l]Ordered By: Melo Guzman on 11-09-2021 Neutrophils (Bld) [#/Vol] 4.6 10*3/uL 1.8-7.7 [facility] Neutrophils/100 WBC Auto (Bl d)Ordered By: Melo Guzman on 11-09-2021 Neutrophils/100 WBC (Bld) 73.0 % . [facility] No Panel InformationOrdered By: Melo Guzman on 11-09-2021 Estimated GFR () 20 mL/Min [facility] Comment on above: GFR estimated refere nce range: According to KDOQI guidelines, <60 ml/min/1.73m2 is sufficient to diagnose a patient with chronic kidney disease. Perinuclear ANCA (p-ANCA) Antibody See comment Neg:<1:20 [facility] Comment on above: Results are Indeterm inate. The presence of positive fluorescence exhibiting P-ANCA or C-ANCA patterns alone is not specific for the diagnosis of Sulma's Granulomatosis (WG) or microscopic polyangiitis. Decisions about treatment should not be based solely on ANCA IFA results. The [employer]CA [employer] Consensus recommends follow up testing of positive sera with both OK- 3 and MPO-ANCA enzyme immunoassays. As many as 5% serum samples are positive only by EIA. Ref. AM J Clin Pathol 1999;111:507-513. Pharmacy Creatinine Clearance (Chem N/A [facility] Total Complement (CH50) >60 U/mL >41 [facility] Comment on above: Age Male Female 1 - 30 days Not Estab. Not Estab. 31 days - 6 months >32 >20 7 months - 17 years >39 >39 >17 years >41 >41 NOTE: The adult ( >17 years ) reference interval range is used to flag abnormals on this report. If the patient is 17 years old or younger, use the table above to determine out of range values. Performed at: [email or web address] [id number] Mental Health Advanced Practice Nurse: Shree Murray PhD, Phone: [phone] Platelet mean volume Auto (B ld) [Entitic vol]Ordered By: Melo Guzman on 11-09-2021 Platelet mean volume (Bld) [Entitic vol] 8.7 fL 6.3-10.7 [facility] Platelets Auto (Bld) [#/Vol] Ordered By: Melo Guzman on 11-09-2021 Platelets (Bld) [#/Vol] 249 10*3/uL 150-450 [facility] Proteinase 3 Ab [Units/volum e] in Serum by ImmunoassayOrdered By: Melo Guzman on 11-09-2021 Proteinase 3 Ab IA Qn (S) 1.4 units 0.0-0.9 [facility] RBC Auto (Bld) [#/Vol]Ordere d By: Melo Guzman on 11-09-2021 RBC (Bld) [#/Vol] 3.19 10*6/uL 3.60-5.00 [facility] Serum classic neutrophil cyt oplasmic antibody titer by immunofluorescenceOrdered By: Melo Guzman on 11-09-2021 Neutrophil cytoplasmic Ab.classic IF (S) [Titer] 1:80 titer Neg:<1:20 [facility] Serum or plasma complement C 3 measurement (mass/volume)Ordered By: Melo Guzman on 11-09-2021 Complement C3 [Mass/Vol] 120 mg/dL 82-167 [facility] Comment on above: Performed at: [place] [id number] Mental Health Advanced Practice Nurse: Shree Murray PhD, Phone: [phone] Serum or plasma complement C 4 measurement (mass/volume)Ordered By: Melo Guzman on 11-09-2021 Complement C4 [Mass/Vol] 23 mg/dL 12-38 [facility] Basophils Auto (Bld) [#/Vol] Ordered By: Ray Morrow on 10-20-2021 Basophils (Bld) [#/Vol] 0.1 10*3/uL 0.0-0.2 [facility] Basophils/100 WBC Auto (Bld) Ordered By: Ray Morrow on 10-20-2021 Basophils/100 WBC (Bld) 0.9 % . [facility] Blood hemoglobin measurement (mass/volume)Ordered By: Ray Morrow on 10-20-2021 Hemoglobin (Bld) [Mass/Vol] 11.5 g/dL 11.8-15. 4 [facility] Blood leukocytes automated c ount (number/volume)Ordered By: Ray Morrow on 10-20-2021 WBC (Bld) [#/Vol] 8.3 10*3/uL 4.5-11.0 [facility] Creatinine and Glomerular fi ltration rate.predicted panel (S/P/Bld)Ordered By: Ray Morrow on 10-20-2021 Creatinine [Mass/Vol] 3.60 mg/dL 0.44-1.03 [facility] Eosinophils Auto (Bld) [#/Vo l]Ordered By: Ray Morrow on 10-20-2021 Eosinophils (Bld) [#/Vol] 0.1 10*3/uL 0.0-0.45 [facility] Eosinophils/100 WBC Auto (Bl d)Ordered By: Ray Morrow on 10-20-2021 Eosinophils/100 WBC (Bld) 0.9 % . [facility] Erythrocyte distribution wid th Auto (RBC) [Ratio]Ordered By: Ray Morrow on 10-20-2021 Erythrocyte distribution width (RBC) [Ratio] 13.3 % 11.9-15.3 [facility] Estimated glomerular filtrat ion rate (GFR) non- AmericanOrdered By: Ray Morrow on 10-20-2021 GFR/1.73 sq M.predicted among non-blacks MDRD (S/P/Bld) [Vol rate/Area] 12 mL/Min [facility] Hematocrit Auto (Bld) [Volum e fraction]Ordered By: Ray Morrow on 10-20-2021 Hematocrit (Bld) [Volume fraction] 33.6 % 34.0-46.4 [facility] - Hematology and Cell countsOrdered By: Ray Morrow on 10-20-2021 Nucleated RBC/100 WBC (Bld) [Ratio] 0.0 % 0-0.5 [facility] Lymphocytes Auto (Bld) [#/Vo l]Ordered By: Ray Morrow on 10-20-2021 Lymphocytes (Bld) [#/Vol] 0.9 10*3/uL 1.00-4.8 [facility] Lymphocytes/100 WBC Auto (Bl d)Ordered By: Ray Morrow on 10-20-2021 Lymphocytes/100 WBC (Bld) 10.4 % . [facility] MCH Auto (RBC) [Entitic mass ]Ordered By: Ray Morrow on 10-20-2021 MCH (RBC) [Entitic mass] 34.9 pg 24.7-34.3 [facility] MCHC Auto (RBC) [Mass/Vol]Or dered By: Ray Morrow on 10-20-2021 MCHC (RBC) [Mass/Vol] 34.3 g/dL 32.0-35.0 [facility] MCV Auto (RBC) [Entitic vol] Ordered By: Ray Morrow on 10-20-2021 MCV (RBC) [Entitic vol] 101.8 fL 80-100 [facility] Monocytes Auto (Bld) [#/Vol] Ordered By: Ray Morrow on 10-20-2021 Monocytes (Bld) [#/Vol] 0.8 10*3/uL 0.0-0.8 [facility] Monocytes/100 WBC Auto (Bld) Ordered By: Ray Morrow on 10-20-2021 Monocytes/100 WBC (Bld) 9.2 % . [facility] Neutrophils Auto (Bld) [#/Vo l]Ordered By: Ray Morrow on 10-20-2021 Neutrophils (Bld) [#/Vol] 6.5 10*3/uL 1.8-7.7 [facility] Neutrophils/100 WBC Auto (Bl d)Ordered By: Ray Morrow on 10-20-2021 Neutrophils/100 WBC (Bld) 78.6 % . [facility] No Panel InformationOrdered By: Ray Morrow on 10-20-2021 Estimated GFR () 14 mL/Min [facility] Comment on above: GFR estimated refere nce range: According to KDOQI guidelines, <60 ml/min/1.73m2 is sufficient to diagnose a patient with chronic kidney disease. Pharmacy Creatinine Clearance (Chem 9.22 [facility] Platelet mean volume Auto (B ld) [Entitic vol]Ordered By: Ray Morrow on 10-20-2021 Platelet mean volume (Bld) [Entitic vol] 8.5 fL 6.3-10.7 [facility] Platelets Auto (Bld) [#/Vol] Ordered By: Ray Morrow on 10-20-2021 Platelets (Bld) [#/Vol] 239 10*3/uL 150-450 [facility] RBC Auto (Bld) [#/Vol]Ordere d By: Ray Morrow on 10-20-2021 RBC (Bld) [#/Vol] 3.30 10*6/uL 3.60-5.00 [facility] Serum or plasma calcium karine urement (mass/volume)Ordered By: Ray Morrow on 10-20-2021 Calcium [Mass/Vol] 9.9 mg/dL 8.2-10.2 [facility] Serum or plasma chloride allyson surement (moles/volume)Ordered By: Ray Morrow on 10-20-2021 Chloride [Moles/Vol] 95 mmol/L 95-114 [facility] Serum or plasma glucose karine urement (mass/volume)Ordered By: Ray Morrow on 10-20-2021 Glucose [Mass/Vol] 100 mg/dL 70-100 [facility] Comment on above: ADA recommended refe rence range Random Glucose Reference Range is dependent on time and content of last meal. Glucose of more than 200 mg/dL in a nonstressed, ambulatory subject supports the diagnosis of Diabetes Mellitus. Serum or plasma potassium me asurement (moles/volume)Ordered By: Ray Morrow on 10-20-2021 Potassium [Moles/Vol] 3.7 mmol/L 3.5-5.1 [facility] Serum or plasma sodium measu rement (moles/volume)Ordered By: Ray Morrow on 10-20-2021 Sodium [Moles/Vol] 135 mmol/L 136-146 [facility] Serum or plasma total carbon dioxide measurement (moles/volume)Ordered By: Ray Morrow on 10-20-2021 CO2 [Moles/Vol] 25.9 mmol/L 22.0-30.0 [facility] Serum or plasma urea nitroge n measurement (mass/volume)Ordered By: Ray Morrow on 10-20-2021 Urea nitrogen [Mass/Vol] 49 mg/dL 12-16 [facility] COVID-19 Positive/NegativeOr dered By: Leo Lanier on 10-19-2021 SARS-CoV-2 (COVID-19) N gene BRIAN+probe Ql (Resp) Negative Negative [facility] Comment on above: Testing for SARS-CoV -2 by RT-PCR This test was developed and its performance characteristics determined by [employer] and validated at the [facility]. This test has not been FDA cleared or approved. This test has been authorized by FDA under an Emergency Use Authorization (EUA). This test has been validated in accordance with the FDA's Guidance Document (Policy for Diagnostics Testing in Laboratories Certified to Perform High Complexity Testing under CLIA prior to Emergency Use Authorization for Coronavirus Disease-2019 during the Public Health Emergency) issued on June 26, 2019. This test is only authorized for the duration of time the declaration that circumstances exist justifying the authorization of the emergency use of in vitro diagnostic tests for detection of SARS-CoV-2 virus and/or diagnosis of COVID-19 infection under section 564(b)(1) of the Act, 21 U.S.C. 360bbb-3(b)(1), unless the authorization is terminated or revoked sooner. Urine culture routineOrdered By: Namrata Estes on 10-18-2021 Bacteria identified Cx Nom (U) Proteus mirabilis [facility] Urine Cultureon 10-16-2021 Urine Culture >100,000 [employer] Other Urine Culture <16 Susceptible [employer] Other Urine Culture <8 Susceptible [employer] Other Urine Culture <4 Susceptible [employer] Other Urine Culture <2 Susceptible [employer] Other Urine Culture <1 Susceptible [employer] Other Urine Culture <0.5 Susceptible [employer] Other Urine Culture >64 Resistant [employer] Other Urine Culture >8 Resistant [employer] Other Urine Culture <2/38 Susceptible [employer] Other Urinalysis - AUTOMATEDon Appearance (U) clear [employer] Other Bilirubin Ql (U) small [employer] Other Color (U) dark yellow [employer] Other Glucose Ql (U) Negative [employer] Other Hemoglobin Ql (U) Negative [employer] Other Ketones Ql (U) Negative [employer] Other Leukocyte esterase Test strip Ql (U) small [employer] Other Nitrite Ql (U) Negative [employer] Other pH (U) 5.5 [pH] [employer] Other Protein Ql (U) 30 [employer] Other Specific gravity (U) [Rel density] 1.025 [employer] Other Urobilinogen (U) [Mass/Vol] 0.2 mg/dL [employer] Other Urinalysis - AUTOMATED No rt [employer] Other C reactive protein [Mass/vol ume] in Serum or PlasmaOrdered By: Melo Guzman on 09-28-2021 CRP [Mass/Vol] 2.5 mg/dL 0.0-1.0 [facility] Erythrocyte sedimentation ra te by Photometric methodOrdered By: Melo Guzman on 09-28-2021 ESR Photometric method (Bld) [Velocity] 27 mm/hr 0-29 [facility] - Chemistry and C hemistry - challengeOrdered By: Melo Guzman on 09-28-2021 Magnesium [Mass/Vol] 2.3 mg/dL 1.6-2.6 [facility] No Panel InformationOrdered By: Melo Guzman on 09-28-2021 Anti-Nuclear Antibody Comment 2 See comment . [facility] Comment on above: For more information about Hep-2 cell patterns use ANApatterns.WeGoOut, the official website for the International Consensus on Antinuclear Antibody (ALYSE) Patterns (ICAP). -- A positive ALYSE result may occur in healthy individuals (low titer) or be associated with a variety of diseases. See interpretation chart which is not all inclusive: Pattern Antigen Detected Suggested Disease Association Homogeneous DNA(ds,ss), SLE - High titers Nucleosomes, Histones Drug-induced SLE Speckled Sm, SPRING UPHOLSTERER, SCL-70, SLE,MCTD,PSS (diffuse form), SS-A/SS-B Sjogrens Nucleolar SCL-70, PM-1/SCL High titers Scleroderma, PM/DM Centromere Centromere PSS (limited form) w/Crest syndrome variable Nuclear Dot Sp100,a60-apswdm Primary Biliary Cirrhosis Nuclear GP210, Primary Biliary Cirrhosis Membrane rahul A,B,C Performed at: - [facility] [id number] Mental Health Advanced Practice Nurse: Shree Murray PhD, Phone: [phone] Serum homogeneous pattern an tinuclear antibody (ALYSE) titerOrdered By: Melo Guzman on 09-28-2021 Homogenous nuclear Ab pattern (S) [Titer] 1:1280 . [facility] Comment on above: ICAP nomenclature: A C-1 Serum nuclear antibody titer Ordered By: Melo Guzman on 09-28-2021 Nuclear Ab (S) [Titer] Positive . [facility] Comment on above: Negative <1:80 Borderline 1:80 Positive >1:80 Serum or plasma intact parat hyroid hormone measurement (mass/volume)Ordered By: Melo Guzman on 09-28-2021 Parathyrin.intact [Mass/Vol] 214.5 pg/mL [facility] INSULINon 09-12-2021 Insulin 15.4 uIU/mL Normal 2.6-24.9 [facility] Comment on above: Performed By: #### U [facility] [address] #### [facility] [address] [place] [address] Dr. Farida Aranda CBC AUTO DIFFon 09-10-2021 BASO # 0.1 103/ul Normal 0.0-0.1 [facility] Comment on above: Performed By: #### C BC #### [facility] [address] [place] [address] Dr. Farida Aranda Basophils/100 WBC (Bld) 1.1 % Normal 0.2-2.0 [facility] Comment on above: Performed By: #### C BC #### [facility] [address] [place] [address] Dr. Farida Aranda EO # 0.2 103/ul Normal 0.0-0.7 [facility] Comment on above: Performed By: #### C BC #### [facility] [address] [place] [address] Dr. Farida Aranda Eosinophils/100 WBC (Bld) 2.7 % Normal 0.9-7.0 [facility] Comment on above: Performed By: #### C BC #### [facility] [address] [place] [address] Dr. Farida Aranda Erythrocyte distribution width (RBC) [Ratio] 13.5 % Normal 11.0-15.0 [facility] Comment on above: Performed By: #### C BC #### [facility] [address] [place] [address] Dr. Farida Aranda Hematocrit (Bld) [Volume fraction] 40.9 % Normal 36.0-48.0 [facility] Comment on above: Performed By: #### C BC #### [facility] [address] [place] [address] Dr. Farida Aranda Hemoglobin (Bld) [Mass/Vol] 13.6 g/dL Normal 12.0-16. 0 [facility] Comment on above: Performed By: #### C BC #### [facility] [address] [place] [address] Dr. Farida Aranda IG # 0.02 10e3/ul Normal 0.00-0.03 [facility] Comment on above: Performed By: #### C BC #### [facility] [address] [place] [address] Dr. Farida Aranda IG % 0.3 % Normal 0.0-0.5 [facility] Comment on above: Performed By: #### C BC #### [facility] [address] [place] [address] Dr. Farida Aranda LYMPH # 1.4 103/ul Normal 1.2-3.8 [facility] Comment on above: Performed By: #### C BC #### [facility] [address] [place] [address] Dr. Farida Aranda Lymphocytes/100 WBC (Bld) 20.8 % Normal 20.5-60.0 [facility] Comment on above: Performed By: #### C BC #### [facility] [address] [place] [address] Dr. Farida Aranda MANUAL DIFF REQ NO Normal [facility] Comment on above: Performed By: #### C BC #### [facility] [address] [place] [address] Dr. Farida Aranda MCH (RBC) [Entitic mass] 33.3 pg Normal 26.7-34.0 [facility] Comment on above: Performed By: #### C BC #### [facility] [address] [place] [address] Dr. Farida Aranda MCHC (RBC) [Mass/Vol] 33.3 g/dL Normal 29.9-35.2 [facility] Comment on above: Performed By: #### C BC #### [facility] [address] [place] [address] Dr. Farida Aranda MCV (RBC) [Entitic vol] 100.0 fL Critically high 81.0-99 .0 [facility] Comment on above: Performed By: #### C BC #### [facility] [address] [place] [address] Dr. Farida Aranda MONO # 0.6 103/ul Normal 0.3-0.8 [facility] Comment on above: Performed By: #### C BC #### [facility] [address] [address] [address] Farida Aranda Monocytes/100 WBC (Bld) 9.0 % Normal 1.7-12.0 [facility] Comment on above: Performed By: #### C BC #### [facility] [address] [address] [address] Farida Aranda NEUT # 4.4 103/ul Normal 1.4-6.5 [facility] Comment on above: Performed By: #### C BC #### [facility] [address] [place] [address] Dr. Farida Aranda Neutrophils/100 WBC (Bld) 66.1 % Normal 43.0-75.0 [facility] Comment on above: Performed By: #### C BC #### [facility] [address] [place] [address] Dr. Farida Aranda Platelet mean volume (Bld) [Entitic vol] 10.2 fL Normal 9.5-13.5 [facility] Comment on above: Performed By: #### C BC #### [facility] [address] [place] [address] Dr. Farida Aranda PLT 209 103/ul Normal 150-450 [facility] Comment on above: Performed By: #### C BC #### [facility] [address] [place] [address] Dr. Farida Aranda RBC 4.09 106/ul Critically low 4.20-5.40 [facility] Comment on above: Performed By: #### C BC #### [facility] [address] [place] [address] Dr. Farida Aranda WBC 6.7 103/ul Normal 4.0-11.0 [facility] [facility] Comment on above: Performed By: #### C BC #### [facility] [address] [place] [address] Dr. Farida Aranda FREE THYROXINE INDEX T7on FTI 3.69 Normal 1.30-4.50 [facility] Comment on above: Performed By: #### T 7, TSH, LIPID, URIC, CMP #### [facility] [address] [address] [address] Farida Aranda T3U 38.0 % Normal 30.0-39.0 [facility] Comment on above: Performed By: #### T 7, TSH, LIPID, URIC, CMP #### [facility] [address] [place] [address] Dr. Farida Aranda T4 [Mass/Vol] 9.70 ug/dL Normal 4.80-13.90 [facility] Comment on above: Performed By: #### T 7, TSH, LIPID, URIC, CMP #### [facility] [address] [address] [address] Farida Aranda IRONon 09-10-2021 Iron [Mass/Vol] 106.0 ug/dL Normal 50.0-170.0 [facility] Comment on above: Performed By: #### C BC #### [facility] [address] [place] [address] Dr. Farida Aranda LIPID PROFILEon 09-10-2021 CHOL-HDL RATIO NORM SEE BELOW Normal [facility] Comment on above: Result Comment: 3.3 - 4.4 LOW RISK 4.4 - 7.1 AVERAGE RISK 7.1 - 11.0 MODERATE RISK >11.0 HIGH RISK Performed By: #### T 7, TSH, LIPID, URIC, CMP #### [facility] [address] [place] [address] Dr. Farida Aranda Cholesterol [Mass/Vol] 145 mg/dL Normal <=200 [place] Comment on above: Performed By: #### T 7, TSH, LIPID, URIC, CMP #### [facility] [address] [place] [address] Dr. Farida Aarnda Cholesterol in HDL [Mass/Vol] 55 mg/dL Normal 40-60 [facility] Comment on above: Performed By: #### T 7, TSH, LIPID, URIC, CMP #### [facility] [address] [place] [address] Dr. Farida Aranda Cholesterol in LDL [Mass/Vol] 72.0 mg/dL Normal [facility] Comment on above: Performed By: #### T 7, TSH, LIPID, URIC, CMP #### [facility] [address] [address] [address] Farida Aranda Cholesterol.total/Cholester ol in HDL [Mass ratio] 2.6 {ratio} Normal [facility] Comment on above: Performed By: #### T 7, TSH, LIPID, URIC, CMP #### [facility] [address] [address] [address] Farida Aranda HDL NORMAL > or = 60 mg/dl - LOW CARDIOVASCULAR RISK <40 mg/dl - HIGH CARDIOVASCULAR RISK Normal [facility] Comment on above: Performed By: #### T 7, TSH, LIPID, URIC, CMP #### [facility] [address] [address] [address] Farida Aranda LDL CALC NORMAL SEE BELOW Normal [facility] Comment on above: Result Comment: <100 mg/dl OPTIMAL 100 - 129 mg/dl NEAR OR ABOVE OPTIMAL 130 - 159 mg/dl BORDERLINE HIGH 160 - 189 mg/dl HIGH >190 mg/dl VERY HIGH Performed By: #### T 7, TSH, LIPID, URIC, CMP #### [facility] [address] [address] [address] Farida Aranda Triglyceride [Mass/Vol] 90 mg/dL Normal <=150 T [facility] Comment on above: Performed By: #### T 7, TSH, LIPID, URIC, CMP #### [facility] [address] [address] [address] Farida Aranda VLDL CALC 18.0 mg/dL Normal [facility] Comment on above: Performed By: #### T 7, TSH, LIPID, URIC, CMP #### [facility] [address] [address] [address] Farida Aranda PROF 14(COMP METB)on 022 Albumin [Mass/Vol] 3.8 g/dL Normal 3.4-5.0 [facility] Comment on above: Performed By: #### T 7, TSH, LIPID, URIC, CMP #### [facility] [address] [address] [address] Farida Aranda Albumin/Globulin [Mass ratio] 0.9 {ratio} Normal [facility] Comment on above: Performed By: #### T 7, TSH, LIPID, URIC, CMP #### [facility] [address] [place] [address] Dr. Farida Aranda ALP [Catalytic activity/Vol] 101 U/L Normal 46-116 [facility] Comment on above: Performed By: #### T 7, TSH, LIPID, URIC, CMP #### [facility] [address] [place] [address] Dr. Farida Aranda ALT [Catalytic activity/Vol] 23 U/L Normal 14-59 [facility] Comment on above: Performed By: #### T 7, TSH, LIPID, URIC, CMP #### [facility] [address] [place] [address] Dr. Farida Aranda Anion gap [Moles/Vol] 8.4 mmol/L Normal [facility] Comment on above: Performed By: #### T 7, TSH, LIPID, URIC, CMP #### [facility] [address] [place] [address] Dr. Farida Aranda AST [Catalytic activity/Vol] 18 U/L Normal 15-37 [facility] Comment on above: Performed By: #### T 7, TSH, LIPID, URIC, CMP #### [facility] [address] [place] [address] Dr. Farida Aranda Bilirubin [Mass/Vol] 0.8 mg/dL Normal 0.2-1.0 [facility] Comment on above: Performed By: #### T 7, TSH, LIPID, URIC, CMP #### [facility] [address] [place] [address] Dr. Farida Aranda Calcium [Mass/Vol] 9.7 mg/dL Normal 8.5-10.1 [facility] Comment on above: Performed By: #### T 7, TSH, LIPID, URIC, CMP #### [facility] [address] [place] [address] Dr. Farida Aranda Chloride [Moles/Vol] 97 mmol/L Critically low 98-107 [facility] Comment on above: Performed By: #### T 7, TSH, LIPID, URIC, CMP #### [facility] [address] [address] [address] Farida Aranda CO2 [Moles/Vol] 33.7 mmol/L Critically high 21.0-32.0 [facility] Comment on above: Performed By: #### T 7, TSH, LIPID, URIC, CMP #### [facility] [address] [place] [address] Dr. Farida Aranda Creatinine [Mass/Vol] 2.80 mg/dL Critically high 0.55-1.02 [facility] Comment on above: Performed By: #### T 7, TSH, LIPID, URIC, CMP #### [facility] [address] [place] [address] Dr. Farida Aranda EGFR-AF SRI LANKAN 19 mL/min/1.73m2 Critically low >=60 [facility] Comment on above: Performed By: #### T 7, TSH, LIPID, URIC, CMP #### [facility] [address] [place] [address] Dr. Farida Aranda EGFR-NON AF SRI LANKAN 16 mL/min/1.73m2 Critically low >=60 [facility] Comment on above: Performed By: #### T 7, TSH, LIPID, URIC, CMP #### [facility] [address] [place] [address] Dr. Farida Aranda Globulin (S) [Mass/Vol] 4.2 g/dL Normal [facility] Comment on above: Performed By: #### T 7, TSH, LIPID, URIC, CMP #### [facility] [address] [place] [address] Dr. Farida Aranda Glucose [Mass/Vol] 101 mg/dL Normal 74-106 [facility] Comment on above: Performed By: #### T 7, TSH, LIPID, URIC, CMP #### [facility] [address] [place] [address] Dr. Farida Aranda Potassium [Moles/Vol] 4.1 mmol/L Normal 3.5-5.1 [facility] Comment on above: Performed By: #### T 7, TSH, LIPID, URIC, CMP #### [facility] [address] [address] [address] Farida Aranda Protein [Mass/Vol] 8.0 g/dL Normal 6.4-8.2 [facility] Comment on above: Performed By: #### T 7, TSH, LIPID, URIC, CMP #### [facility] [address] [place] [address] Dr. Farida Aranda Sodium [Moles/Vol] 135 mmol/L Critically low 136-145 [facility] Comment on above: Performed By: #### T 7, TSH, LIPID, URIC, CMP #### [facility] [address] [place] [address] Dr. Farida Aranda Urea nitrogen [Mass/Vol] 29.0 mg/dL Critically high 7.0-18 .0 [facility] Comment on above: Performed By: #### T 7, TSH, LIPID, URIC, CMP #### [facility] [address] [place] [address] Dr. Farida Aranda Urea nitrogen/Creatinine [Mass ratio] 10.4 mg/mg Normal [facility] Comment on above: Performed By: #### T 7, TSH, LIPID, URIC, CMP #### [facility] [address] [place] [address] Dr. Farida Aranda TSHon 09-10-2021 TSH 1.310 uIU/mL Normal 0.358-3.74 0 [facility] Comment on above: Performed By: #### T 7, TSH, LIPID, URIC, CMP #### [facility] [address] [place] [address] Dr. Farida Aranda URIC ACID SERUMon 09-10-2021 Urate [Mass/Vol] 3.9 mg/dL Normal 2.6-6.0 [facility] Comment on above: Performed By: #### T 7, TSH, LIPID, URIC, CMP #### [facility] [address] [place] [address] Dr. Farida Aranda Vital Signs Date Time Vital Sign Value Performing Clinician Facility 04-18-2023 15:13-0500 Body height 152.4 cm Zack Lopes MD Work Phone: [facility] 04-18-2023 15:13-0500 Body mass index (BMI) [Ratio] 26.76 kg/m2 Zack Lopes MD Work Phone: [facility] 04-18-2023 15:13-0500 Body weight 62.14 kg Zack Lopes MD Work Phone: [facility] 04-18-2023 15:13-0500 Diastolic blood pressure 62 mm[Hg] Zack Lopes MD Work Phone: [facility] 04-18-2023 15:13-0500 Heart rate 76 /min Zack Lopes MD Work Phone: [facility] 04-18-2023 15:13-0500 Systolic blood pressure 126 mm[Hg] Zack Lopes MD Work Phone: [facility] 03-13-2023 12:45-0500 Body height 152.4 cm Francy Cleveland Other [employer] Other 03-13-2023 12:45-0500 Body mass index (BMI) [Ratio] 26.36 kg/m2 Francy Cleveland Other [employer] Other 03-13-2023 12:45-0500 Body temperature 97.6 [degF] Francy Cleveland Other [employer] Other 03-13-2023 12:45-0500 Body weight 61.24 kg Francy Cleveland Other [employer] Other 03-13-2023 12:45-0500 Diastolic blood pressure 66 mm[Hg] Francy Cleveland Other [employer] Other 03-13-2023 12:45-0500 SaO2% (BldA) [Mass fraction] 96 % Francy Cleveland Other [employer] Other 03-13-2023 12:45-0500 Systolic blood pressure 112 mm[Hg] Francy Cleveland Other [employer] Other 12-19-2022 13:15-0400 Body height 152.4 cm Magen Lawrencerer Other [employer] Other 12-19-2022 13:15-0400 Body mass index (BMI) [Ratio] 26.36 kg/m2 Magen Buehrer Other [employer] Other 12-19-2022 13:15-0400 Body temperature 97.8 [degF] Magen Lawrencerer Other [employer] Other 12-19-2022 13:15-0400 Body weight 61.24 kg Magen Lawrencerer Other [employer] Other 10-04-2022 14:11-0400 Body height 152.4 cm Namrata S Tsering Work Phone: [facility] [employer] [address] DO Work Phone: 10-04-2022 14:11-0400 Body mass index (BMI) [Ratio] 25.78 kg/m2 Namrata S Tsering Work Phone: [facility] 250 DO Work Phone: 10-04-2022 14:11-0400 Body surface area Derived from formula 1.56 m2 Namrata S Tsering Work Phone: [facility] 250 DO Work Phone: 10-04-2022 14:11-0400 Body weight 59.88 kg Namrata S Tsering Work Phone: [facility] [address] DO Work Phone: 10-04-2022 14:11-0400 Diastolic blood pressure 60 mm[Hg] Namrata Benoit Tsering Work Phone: [facility] [address] DO Work Phone: 10-04-2022 14:11-0400 Heart rate 62 /min Namrata Benoit Tsering Work Phone: [facility] [address] DO Work Phone: 10-04-2022 14:11-0400 Systolic blood pressure 128 mm[Hg] Namrata S Tsering Work Phone: [facility] [employer] 250 DO Work Phone: 09-19-2022 11:45-0400 Body height 152.4 cm Francy Medleyskye Other [employer] Other 09-19-2022 11:45-0400 Body mass index (BMI) [Ratio] 27.34 kg/m2 Francy Medleyskye Other [employer] Other 09-19-2022 11:45-0400 Body temperature 96.4 [degF] Francy Medleyskye Other [employer] Other 09-19-2022 11:45-0400 Body weight 63.5 kg Francy Medleyskye Other [employer] Other 09-19-2022 11:45-0400 Diastolic blood pressure 60 mm[Hg] Francy Cristofer Other [employer] Other 09-19-2022 11:45-0400 SaO2% (BldA) [Mass fraction] 99 % Francy Medleyskye Other [employer] Other 09-19-2022 11:45-0400 Systolic blood pressure 120 mm[Hg] Francy Cleveland Other [facility] [employer] Other 06-08-2022 15:35-0400 Diastolic blood pressure 64 mm[Hg] STAMP ANALYST-C Namrata Tsering Work Phone: [facility] 06-08-2022 15:35-0400 Heart rate 65 /min STAMP ANALYST-C Namrata Tsering Work Phone: [facility] 06-08-2022 15:35-0400 Respiratory rate 18 /min STAMP ANALYST-C Namrata Tsering Work Phone: [facility] 06-08-2022 15:35-0400 SaO2% (BldA) [Mass fraction] 100 % STAMP ANALYST-C Namrata Tsering Work Phone: [facility] 06-08-2022 15:35-0400 Systolic blood pressure 128 mm[Hg] STAMP ANALYST-C Namrata Tsering Work Phone: [facility] 06-08-2022 15:20-0400 Inhaled oxygen flow rate 2 L/min STAMP ANALYST-C Namrata Tsering Work Phone: [facility] 06-08-2022 13:15-0400 Body height 152.4 cm STAMP ANALYST-C Namrata Tsering Work Phone: [facility] 06-08-2022 13:15-0400 Body weight 68 kg STAMP ANALYST-C Namrata Tsering Work Phone: [facility] 12-28-2021 14:23-0400 Body height 152.4 cm Namrata S Tsering Work Phone: [facility] [address] DO Work Phone: 12-28-2021 14:23-0400 Body mass index (BMI) [Ratio] 27.93 kg/m2 Namrata S Tsering Work Phone: [facility] 250 DO Work Phone: 12-28-2021 14:23-0400 Body surface area Derived from formula 1.62 m2 Namrata Benoit Tsering Work Phone: [facility] 250 DO Work Phone: 12-28-2021 14:23-0400 Body weight 64.86 kg Namrata Benoit Tsering Work Phone: [facility] 250 DO Work Phone: 12-28-2021 14:23-0400 Diastolic blood pressure 60 mm[Hg] Namrata Benoit Tsering Work Phone: [facility] 250 DO Work Phone: 12-28-2021 14:23-0400 Heart rate 68 /min Namrata Benoit Tsering Work Phone: [facility] [facility] DO Work Phone: 12-28-2021 14:23-0400 Systolic blood pressure 138 mm[Hg] Namrata Benoit Tsering Work Phone: [facility] [facility] DO Work Phone: 12-17-2021 12:20-0400 Body height 152.4 cm Crystal Plascenciaault Other [employer] Other 12-17-2021 12:20-0400 Body mass index (BMI) [Ratio] 27.92 kg/m2 Crystal Carmel Other [employer] Other 12-17-2021 12:20-0400 Body temperature 97.1 [degF] Crystal Carmel Other [employer] Other 12-17-2021 12:20-0400 Body weight 64.86 kg Crystal Carmel Other [employer] Other 12-17-2021 12:20-0400 Diastolic blood pressure 58 mm[Hg] Crystal Burt Other [employer] Other 12-17-2021 12:20-0400 Respiratory rate 18 /min Crystal Burt Other [employer] Other 12-17-2021 12:20-0400 SaO2% (BldA) [Mass fraction] 100 % Crystal Burt Other [employer] Other 12-17-2021 12:20-0400 Systolic blood pressure 138 mm[Hg] Crystal Burt Other [employer] Other 10-20-2021 15:42-0400 Diastolic blood pressure 59 mm[Hg] STAMP ANALYST-C Namrata Tsering Work Phone: [facility] 10-20-2021 15:42-0400 Heart rate 74 /min STAMP ANALYST-C Namrata Tsering Work Phone: [facility] 10-20-2021 15:42-0400 Respiratory rate 16 /min STAMP ANALYST-C Namrata Tsering Work Phone: [facility] 10-20-2021 15:42-0400 SaO2% (BldA) [Mass fraction] 96 % STAMP ANALYST-C Namrata Tsering Work Phone: [facility] 10-20-2021 15:42-0400 Systolic blood pressure 133 mm[Hg] STAMP ANALYST-C Namrata Tsering Work Phone: [facility] 10-20-2021 13:39-0400 Body mass index (BMI) [Ratio] 27.7 kg/m2 STAMP ANALYST-C Namrata Tsering Work Phone: [facility] 10-20-2021 13:29-0400 Body height 152.4 cm STAMP ANALYST-C Namrata Tsering Work Phone: [facility] 10-20-2021 13:29-0400 Body weight 64.41 kg STAMP ANALYST-C Namrata Cagle Work Phone: [facility] 10-20-2021 11:50-0400 Body temperature 98.3 [degF] STAMP ANALYST-C Namrata Cagle Work Phone: [facility] 10-15-2021 15:35-0400 Body height 152.4 cm Namrata Estes Other [employer] Other 10-15-2021 15:35-0400 Body mass index (BMI) [Ratio] 26.95 kg/m2 Namrata Hailemond Other [employer] Other 10-15-2021 15:35-0400 Body temperature 97.6 [degF] Namrata Estes Other [employer] Other 10-15-2021 15:35-0400 Body weight 62.6 kg Namrata Estes Other [employer] Other 10-15-2021 15:35-0400 Diastolic blood pressure 65 mm[Hg] Namrata Estes Other [employer] Other 10-15-2021 15:35-0400 SaO2% (BldA) [Mass fraction] 98 % Namrata Hailemond Other [employer] Other 10-15-2021 15:35-0400 Systolic blood pressure 140 mm[Hg] Namrata Hailemond Other [employer] Other 10-06-2021 16:19-0400 Body height 152.4 cm STAMP ANALYST-C Namrata Cagle Work Phone: [facility] 10-06-2021 16:19-0400 Body mass index (BMI) [Ratio] 27.7 kg/m2 STAMP ANALYST-C Namrata Tsering Work Phone: [facility] 10-06-2021 16:19-0400 Body temperature 98.1 [degF] STAMP ANALYST-C Namrata Tsering Work Phone: [facility] 10-06-2021 16:19-0400 Body weight 64.5 kg STAMP ANALYST-C Namrata Tsering Work Phone: [facility] 10-06-2021 16:19-0400 Diastolic blood pressure 78 mm[Hg] STAMP ANALYST-C Namrata Tsering Work Phone: [facility] 10-06-2021 16:19-0400 Heart rate 86 /min STAMP ANALYST-C Namrata Tsering Work Phone: [facility] 10-06-2021 16:19-0400 Respiratory rate 18 /min STAMP ANALYST-C Namrata Tsering Work Phone: [facility] 10-06-2021 16:19-0400 SaO2% (BldA) [Mass fraction] 97 % STAMP ANALYST-C Namrata Tsering Work Phone: [facility] 10-06-2021 16:19-0400 Systolic blood pressure 176 mm[Hg] STAMP ANALYST-C Namrata Tsering Work Phone: [facility] 09-01-2021 15:25-0400 Diastolic blood pressure 59 mm[Hg] STAMP ANALYST-C Namrata Tsering Work Phone: [facility] 09-01-2021 15:25-0400 Heart rate 64 /min STAMP ANALYST-C Namrata Tsering Work Phone: [facility] 09-01-2021 15:25-0400 Respiratory rate 18 /min STAMP ANALYST-C Namrata Tsering Work Phone: [facility] 09-01-2021 15:25-0400 SaO2% (BldA) [Mass fraction] 18 % STAMP ANALYST-C Namrata Tsering Work Phone: [facility] 09-01-2021 15:25-0400 Systolic blood pressure 117 mm[Hg] STAMP ANALYST-C Namrata Cagle Work Phone: [facility] 09-01-2021 14:21-0400 Body height 152.4 cm STAMP ANALYST-C Namrata Cagle Work Phone: [facility] 09-01-2021 14:21-0400 Body mass index (BMI) [Ratio] 27.3 kg/m2 STAMP ANALYST-C Namrata Cagle Work Phone: [facility] 09-01-2021 14:21-0400 Body weight 63.5 kg STAMP ANALYST-C Namrata Cagle Work Phone: [facility] 04-08-2021 19:15-0500 Body height 152.4 cm Dank Stock Other [employer] Other 04-08-2021 19:15-0500 Body mass index (BMI) [Ratio] 28.32 kg/m2 Dank Stock Other [employer] Other 04-08-2021 19:15-0500 Body temperature 96.9 [degF] Dank Montrell Other [employer] Other 04-08-2021 19:15-0500 Body weight 65.77 kg Dank Stock Other [employer] Other 04-08-2021 19:15-0500 Diastolic blood pressure 61 mm[Hg] Dank Stock Other [employer] Other 04-08-2021 19:15-0500 Respiratory rate 18 /min Dank [employer] Other [employer] Other 04-08-2021 19:15-0500 SaO2% (BldA) [Mass fraction] 98 % Dank Montrell Other [employer] Other 04-08-2021 19:15-0500 Systolic blood pressure 138 mm[Hg] Dank [employer] Other [employer] Other Encounters Encounter Date Encounter Type Care Provider Facility Start: 04-18-2023 End: 04-18-2023 Office outpatient visit 15 minutes Zack Lopes MD Work Phone: [facility] Comment on above: Paroxysmal atrial fi brillation ([facility]/HCC); Primary hypertension; 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 (CMS/[facility]); Never smoked any substance Start: 03-13-2023 End: 03-13-2023 ambulatory Francy Cleveland Other [employer] Other Start: 03-13-2023 Patient encounter procedure rFancy Medleyskye [facility] Start: 01-03-2023 End: 01-03-2023 ambulatory Melo Maxbre Facility:[facility] Start: 01-03-2023 End: 01-03-2023 ambulatory STAMP ANALYST-C Namrata Cagle Work Phone: [facility] Work Phone: Start: 01-03-2023 End: 01-03-2023 Patient encounter procedure STAMP ANALYST-C Namrata Cagle Work Phone: [facility] [address] Work Phone: Start: 12-22-2022 End: 12-23-2022 ambulatory Syd OCHOA Facility:[facility] Start: 12-22-2022 End: 12-23-2022 ambulatory LANA ROSARIO Facility: [facility] Start: 12-19-2022 End: 12-19-2022 ambulatory Magen Lentz Other [employer] Other Start: 12-19-2022 Office outpatient vi sit 15 minutes Magen Lentz [facility] Start: 11-18-2022 Chart Update Namrata williamson Work Phone: [facility] [facility] DO Work Phone: Start: 11-16-2022 ambulatory [id number] Facil [id number] Start: 10-04-2022 Office outpatient vi sit 25 minutes Namrata Cagle Work Phone: [facility] [facility] DO Work Phone: Start: 10-04-[address] Zack Lopes II Facility: Start: 09-27-2022 End: 09-27-2022 ambulatory Namrata Cagle Facility:[facility] Start: 09-27-2022 End: 09-27-2022 ambulatory STAMP ANALYST-C Namrata Cagle Work Phone: [facility] Work Phone: Start: 09-27-2022 End: 09-27-2022 Patient encounter procedure STAMP ANALYST-C Namrata Cagle [facility] Work Phone: Start: 09-19-2022 End: 09-19-2022 ambulatory Francy Cleveland Other [facility] [employer] Other Start: 09-19-2022 Patient encounter procedure Francy Cleveland [facility] Start: 07-18-2022 End: 07-19-2022 ambulatory NAMRATA CAGLE Facility:[facility] Start: 07-11-2022 End: 07-12-2022 ambulatory LANA ROSARIO Facility:[facility] Start: 06-28-2022 End: 06-29-2022 ambulatory NAMRATA CAGLE Facility:[facility] Start: 06-08-2022 End: 06-08-2022 ambulatory Namrata Cagle Facility:[facility] Start: 06-08-2022 End: 06-08-2022 Patient encounter procedure STAMP ANALYST-C Namrata Cagle Work Phone: [facility] Work Phone: Start: 06-08-2022 End: 06-08-2022 Admission to same day surgery center STAMP ANALYST-C Namrata Tsering Work Phone: [facility] Work Phone: Start: 06-08-2022 End: 06-08-2022 ambulatory STAMP ANALYST-C Namrata Shantel Tsering Work Phone: [facility] Work Phone: Start: 05-31-2022 End: 05-31-2022 ambulatory Namrata Shantel Tsering Facility:[facility] Start: 05-31-2022 End: 05-31-2022 ambulatory STAMP ANALYST-C Namrata Shantel Tsering Work Phone: [facility] Work Phone: Start: 05-31-2022 End: 05-31-2022 Patient encounter procedure STAMP ANALYST-C Namrata Tsering Work Phone: [facility] Work Phone: Start: 05-22-2022 End: 05-22-2022 ambulatory Magen Lentz Other [facility] [employer] Other Start: 05-22-2022 Telephone encounter Magen Lentz [facility] Start: 04-18-2022 End: 04-19-2022 ambulatory NAMRATA CAGLE Facility:[facility] Start: 04-11-2022 End: 04-12-2022 ambulatory Syd OCHOA Facility: [facility] Start: 01-31-2022 End: 02-01-2022 ambulatory NAMRATALORRAINE CAGLE Facility:[facility]1 Start: 01-11-2022 End: 01-12-2022 ambulatory NAMRATALORRAINE CAGLE Facility:[facility]1 Start: 12-28-[address] Zack Lopes II Facility: Start: 12-28-2021 Office outpatient vi sit 15 minutes Namrata S Tsering Work Phone: [facility] 250 DO Work Phone: Start: 12-28-2021 Patient encounter procedure Namrata S Tsering Work Phone: [facility] 250 DO Work Phone: Start: 12-21-2021 Rx Renewal Namrata Cy Devin r Work Phone: [facility] 250 DO Work Phone: Start: 12-17-2021 End: 12-17-2021 ambulatory Crystal Burt Other [employer] Other Start: 12-17-2021 Office outpatient vi sit 15 minutes Crystal Burt [facility] Start: 12-17-2021 End: 12-17-2021 Departed Referred STAMP ANALYST-Cindy Cagle Work Phone: [facility] Start: 11-30-2021 End: 11-30-2021 ambulatory Naima Marline Other [employer] Other Start: 11-30-2021 Telephone encounter Naima Marline [facility] Start: 11-23-2021 End: 11-23-2021 ambulatory Naima Marline Other [employer] Other Start: 11-23-2021 Telephone encounter Naima Marline [facility] Start: 11-11-2021 End: 11-11-2021 ambulatory NAMRATA CAGLE Facility:[facility]1 Start: 11-09-2021 End: 11-09-2021 Patient encounter procedure STAMP ANALYST-Cindy Cagle Work Phone: [facility] [address] Start: 10-20-2021 End: 10-20-2021 Admission to same day surgery center [place] Cagle Work Phone: [facility] [address] Start: 10-19-2021 End: 10-19-2021 Patient encounter procedure NJ Cagle Work Phone: [facility] Start: 10-17-2021 End: 10-17-2021 ambulatory Namrata Estes Other [employer] Other Start: 10-17-2021 Telephone encounter Namrata Estes [facility] Start: 10-16-2021 End: 10-16-2021 Departed Referred STAMP ANALYST-C Namrata Cagle Work Phone: [facility] [address] Start: 10-15-2021 End: 10-15-2021 ambulatory Namrata Estes Other [employer] Other Start: 10-15-2021 Office outpatient vi sit 15 minutes Namrata Estes [facility] Start: 10-06-2021 End: 10-06-2021 Emergency department patient visit STAMP ANALYST-C Namrata Cagle Work Phone: [facility]Emergency [facility] Start: 09-28-2021 End: 09-28-2021 Patient encounter procedure STAMP ANALYST-C Namrata Cagle Work Phone: [facility] [address] Start: 09-27-2021 End: 09-27-2021 ambulatory NAMRATA CAGLE Facility:[facility]1 Start: 09-14-2021 End: 09-14-2021 Patient encounter procedure STAMP ANALYST-C Namrata Cagle Work Phone: [facility] Start: 09-10-2021 End: 09-11-2021 ambulatory NAMRATA CAGLE Facility:[facility]1 Start: 09-06-2021 End: 09-28-2021 ambulatory NAMRATA CAGLE Facility:[facility]1 Start: 09-01-2021 End: 09-01-2021 Admission to same day surgery center STAMP ANALYST-C Nmarata Cagle Work Phone: [facility]Interventional Radiology Start: 08-26-2021 ambulatory NAMRATA CAGLE Facility: [facility]1 Start: 04-13-2021 End: 04-13-2021 ambulatory Dank [place] Other [employer] Other Start: 04-13-2021 Telephone encounter Dank Stock [facility] [address] Start: 04-08-2021 End: 04-08-2021 ambulatory Dank Stock Other [facility] [employer] Other Start: 04-08-2021 Office outpatient vi sit 15 minutes Dank Stock [facility] Start: 03-14-2021 Rx Renewal Zack Cannon n DO Work Phone: -[facility] 250 DO Work Phone: Radionuclide heart s tudy normal Namrata S Tsering Work Phone: [facility] 250 DO Work Phone: Procedures Date Procedure Procedure Detail Performing Clinician Start: 09-27-2022 Mammography of right breast STAMP ANALYST-C Namrata Cagle Work Phone: Start: 06-08-2022 IR Fistulogram/TLA S tent (Right) STAMP ANALYST-C Namrata Cagle Work Phone: Start: 06-08-2022 Diagnostic radiograp hy of abdomen STAMP ANALYST-C Namrata Cagle Work Phone: Start: 05-31-2022 Plain X-ray of left hip STAMP ANALYST-C Namratalorraine Cagle Work Phone: Start: 05-31-2022 Urine culture STAMP ANALYST-C Jina José Work Phone: Start: 10-20-2021 OR Wound Debridement/I&D/Hydradeniti s (Right) STAMP ANALYST-C Namratalorraine Cagle Work Phone: Start: 10-16-2021 Piperacillin/tazobactam Namrata Meera Other Start: 09-28-2021 Plain X-ray of bilat eral hands STAMP ANALYST-C Namratalorraine Cagle Work Phone: Start: 09-28-2021 X-ray of both knees STAMP ANALYST- C Namratalorraine Cagle Work Phone: Start: 09-14-2021 Mammography of right breast STAMP ANALYST-C Namratalorraine Cagle Work Phone: Start: 09-01-2021 IR Fistulogram/TLA S tent (Right) STAMP ANALYST-C Namrata Cagle Work Phone: Start: 12-24-2017 Total colonoscopy Willi ulices Encinas DO Work Phone: Arteriovenous anastomosis Chase Encinas DO Work Phone: Excision of breast tissue Chase Encinas DO Work Phone: Operative procedure on ankle Zack Encinas DO Work Phone: Urine culture STAMP ANALYST-C Namrata Medina amer Work Phone: Plan of Treatment Date Care Activity Detail Author Start: 09-28-2031 DTaP/Tdap/Td Vaccines (2 - Tdap) DTaP/Tdap/Td Vaccines (2 - Tdap) [facility] Start: 06-18-2024 End: 06-18-2024 Patient encounter procedure 06/18/2024 2:00 PM EDT Office Visit [facility] [address] [id number] Zack Lopes MD [address] [facility] 2, [address] [place] [address] [facility] Start: 07-17-2023 ambulatory Ambulatory Facility:[facility] Start: 04-18-2023 FUV, Provider: Zack Lopes, Status: Pen, Time: 3:10 PM FUV, Provider: Zack Lopes, Status: Pen, Time: 3:10 PM [facility] 250 DO Work Phone: Start: 04-17-2023 COVID-19 Vaccine ( season) COVID-19 Vaccine ( season) [facility] Start: 03-23-2023 Screening for osteoporosis Bone Density Scan [facility] Start: 01-03-2023 Bacteria identified in Urine by Culture [facility] Start: 11-24-2022 Influenza vaccination Influenza Vaccine (#1) [facility] Start: 11-16-2022 CAROTID, Provider: МАРИЯ [facility]TRAS[facility] 01,[id number], Status: Pen, Time: 1:30 PM CAROTID, Provider: МАРИЯ [facility] ULTRASOUND 01,[id number], Status: Pen, Time: 1:30 PM -[facility] 250 DO Work Phone: Start: 10-04-2022 FUV, Provider: Zack Lopes, Status: Pen, Time: 2:10 PM FUV, Provider: Zack Lopes, Status: Pen, Time: 2:10 PM [facility] [facility] DO Work Phone: Start: 06-08-2022 End: 06-08-2022 [facility] Start: 05-31-2022 Hemolytic complement CH50 level [facility] Start: 05-31-2022 Bacteria identified in Urine by Culture [facility] Start: 05-29-2022 Hepatitis B Vaccines (2 of 3 - 19+ 3-dose series) Hepatitis B Vaccines (2 of 3 - 19+ 3-dose series) [facility] Start: 12-28-2021 FUV, Provider: Kezia Millard, Status: Pen, Time: 2:00 PM FUV, Provider: Kezia Millard, Status: Pen, Time: 2:00 PM [facility] 250 DO Work Phone: Start: 11-09-2021 End: 11-09-2021 Patient encounter procedure Departed Clinical [facility] [address] Start: 10-20-2021 [facility] Work Phone: Start: 10-20-2021 [facility] Work Phone: Start: 10-12-2021 FUV, Provider: Zack Lopes, Status: Pen, Time: 1:30 PM FUV, Provider: Zack Lopes, Status: Pen, Time: 1:30 PM [facility] 250 DO Work Phone: Start: 09-01-2021 [facility] Work Phone: Start: 02-27-1984 Zoster Vaccines (1 of 2) Zoster Vaccines (1 of 2) [facility] Start: 02-27-1952 Diabetes mellitus screening Diabetes Screening [facility] Start: 1934 Lipid panel Lipid Panel [facility] Start: 1934 Medicare Annual Wellness Visit Medicare Annual Wellness Visit (AWV) [facility] Start: 1934 Thyroid stimulating hormone measurement TSH Level [facility] Bacteria identified in Urine by Culture [facility] Complement C3 [Mass/ volume] in Serum or Plasma [facility] Complement C4 [Mass/ volume] in Serum or Plasma [facility] Myeloperoxidase Ab [Units/volume] in Serum by Immunoassay [facility] Myeloperoxidase Ab [Units/volume] in Serum by Immunoassay [facility] Patient Education [facility] Work Phone: Patient referral [facility] Work Phone: Proteinase 3 Ab [Units/volume] in Serum by Immunoassay [facility] Proteinase 3 Ab [Units/volume] in Serum by Immunoassay [facility] Immunizations Immunization Date Immunization Notes Care Provider Fa raul 05-01-2022 hepatitis B vaccine, dialysis patient dosage Zack Lopes MD Work Phone: [facility] 02-23-2022 Pfizer COVID-19 Vac Bivalent 30 MCG/0.3ML Intramuscular Suspension Nam[facility]ata S Tsering [facility] Work Phone: 09-27-2021 diphtheria, tetanus toxoids and pertussis vaccine Namrata S Tsering Work Phone: [facility] 07-12-2021 Comirnaty 30 MCG/0.3 ML Intramuscular Suspension Namrata S Tsering [facility] Work Phone: 07-12-2021 SARS-CoV-2, Unspecified Will bety Lopes MD Work Phone: [facility] Work Phone: 01-27-2021 Moderna COVID-19 Vaccine 100 MCG/0.5ML Intramuscular Suspension Namrata Cagle Work Phone: [facility] 12-21-2020 influenza virus vaccine, unspecified formulation Namrata S Tsering [facility] Work Phone: 09-24-2020 tuberculin skin test ; purified protein derivative solution, intradermal Zack Lopes MD Work Phone: [facility] Work Phone: 05-25-2020 Moderna COVID-19 Vaccine 100 MCG/0.5ML Intramuscular Suspension Zack Encinas DO Work Phone: [facility] 04-27-2020 Moderna COVID-19 Vaccine 100 MCG/0.5ML Intramuscular Suspension Zack Encinas DO Work Phone: [facility] 01-11-2020 influenza virus vaccine, unspecified formulation Zack Encinas DO Work Phone: [facility] 250 DO Work Phone: 12-25-2019 influenza, seasonal, injectable Zack Encinas DO Work Phone: [facility] 250 DO Work Phone: 05-02-2019 tuberculin skin test ; purified protein derivative solution, intradermal Zack Lopes MD Work Phone: [facility] Work Phone: 12-24-2018 influenza virus vaccine, unspecified formulation [facility]ata Cagle [facility] Work Phone: 04-30-2018 pneumococcal conjuga te vaccine, 13 valent [employer] Other [employer] Other 04-30-2018 influenza, seasonal, injectable Zack Encinas DO Work Phone: [facility] 250 DO Work Phone: 04-30-2018 pneumococcal polysaccharide vaccine, 23 valent Zack Encinas DO Work Phone: [facility] 250 DO Work Phone: 12-24-2017 influenza virus vaccine, unspecified formulation Namrata S Tsering Work Phone: [place] [address] DO Work Phone: 08-17-2017 pneumococcal conjuga te vaccine, 13 valent Zack Encinas DO Work Phone: [place] [address] DO Work Phone: 06-24-2017 pneumococcal conjuga te vaccine, 13 valent Namrata S Tsering Work Phone: [place] [address] DO Work Phone: 12-15-2016 influenza, high dose seasonal, preservative-free Zack Encinas DO Work Phone: [place] [address] DO Work Phone: 12-06-2016 influenza, injectabl e, quadrivalent, preservative free Zack Encinas DO Work Phone: [place] [address] DO Work Phone: 11-26-2016 influenza virus vaccine, unspecified formulation Namrata S Tsering Work Phone: [facility] 250 DO Work Phone: 01-03-2016 influenza virus vaccine, unspecified formulation Namrata S Tsering Work Phone: [facility] 250 DO Work Phone: 03-26-2015 pneumococcal polysaccharide vaccine, 23 valent Namrata S Tsering Work Phone: [facility] 250 DO Work Phone: 12-30-2014 pneumococcal polysaccharide vaccine, 23 valent Zack Encinas DO Work Phone: [facility] 250 DO Work Phone: 11-24-2014 influenza virus vaccine, unspecified formulation Namrata Cagle Work Phone: [facility] 250 DO Work Phone: 12-31-2013 influenza virus vaccine, whole virus [facility]rata Cagle [facility]: [facility] Work Phone: influenza virus vaccine, unspecified formulation Namrata Cagle Work Phone: [facility] 250 DO Work Phone: Comment on above: 2012 Payers Date Payer Category Payer Unknown 2021 Self-pay [id number] 1999 Medicare MEDICARE MEDICAR E PART A AND B [id number] 1999-Present [address] [place] [address] [id number] 1959 Medicare [id number] 1959 Self-pay [id number] 1959 Unknown [id number] [id number] 1934 Unknown [id number] 2.16.840.1.444552.3.579.2.593 1934 Unknown [id number] 2.16.840.1.149876.3.579.2.593 1934 Unknown [id number] 2.16.840.1.164357.3.579.2.593 1934 Unknown [id number] 2.16.840.1.720513.3.579.2.593 1934 Unknown [id number] 2.16.840.1.499823.3.579.2.593 1934 Unknown [id number] 2.16.840.1.325643.3.579.2.593 1934 Unknown [id number] 2.16.840.1.496643.3.579.2.593 1934 Unknown [id number] 2.16.840.1.494358.3.579.2.593 1934 Unknown [id number] 2.16.840.1.219114.3.579.2.593 1934 Unknown [id number] 2.16.840.1.801865.3.579.2.593 1934 Unknown [id number] 2.16.840.1.378577.3.579.2.356 1934 Unknown [id number] 2.16.840.1.343787.3.579.2.356 1934 Unknown [id number] 2.16.840.1.636279.3.579.2.1068 1934 Unknown [id number] 2.16.840.1.731553.3.579.2.727 1934 Unknown [id number] 2.16.840.1.451128.3.579.2.727 1934 Unknown [id number] 2.16.840.1.964591.3.579.2.727 1934 Unknown [id number] 2.16.840.1.010170.3.579.2.727 1934 Unknown [id number] 2.16.840.1.895458.3.579.2.727 Unknown [id number] 2.16.840.1.665908.3.579.2.531 Unknown [id number] 2.16.840.1.800349.3.579.2.531 Unknown [id number] 2.16.840.1.745151.3.579.2.531 Unknown [id number] 2.16.840.1.695254.3.579.2.531 Unknown [id number] 2.16.840.1.816330.3.579.2.531 Unknown [id number] 2.16.840.1.597451.3.579.2.531 Social History Date Type Detail Facility Start: 04-18-2023 Daily caffeine consumption, 1 serving a day Daily caffeine consumption, 1 serving a day -[facility] 250 DO Work Phone: Start: 04-18-2023 Sex Assigned At N [facility] [employer] Other Start: 10-20-2021 End: 04-18-2023 Tobacco smoking status NHIS Never smoked tobacco (finding) [facility] Start: 1935 Sex Assigned At Female F [facility] Start: 04-18-2023 Tobacco use and exposure Smokeless tobacco non-user [facility] Work Phone: Start: 04-18-2023 Alcohol intake Ex-drinker (finding) [facility] Work Phone: Start: 04-18-2023 Alcohol Comment rarely [facility] Work Phone: Start: 1935 [facility] Work Phone: Start: 04-08-2023 End: 04-18-2023 Exposure to SARS-CoV-2 (event) Not sure [facility] Medical Equipment Procedure Code Equipment Code Equipment Origin al Text Equipment Identifier Dates Fluoroscopic guidance for insertion of tunnelled dialysis catheter CATHETER BIOFLO DURAMAX 24CM FDA Start: 11-15-2017 Fluoroscopic guidance for insertion of tunnelled dialysis catheter CATHETER BIOFLO DURAMAX 24CM FDA Start: 11-15-2017 Fluoroscopic guidance for insertion of tunnelled dialysis catheter CATHETER BIOFLO DURAMAX 24CM FDA Start: 11-15-2017 Fluoroscopic guidance for insertion of tunnelled dialysis catheter CATHETER BIOFLO DURAMAX 24CM FDA Start: 11-15-2017 Fluoroscopic guidance for insertion of tunnelled dialysis catheter CATHETER BIOFLO DURAMAX 24CM FDA Start: 11-15-2017 Fluoroscopic guidance for insertion of tunnelled dialysis catheter CATHETER BIOFLO DURAMAX 24CM FDA Start: 11-15-2017 Fluoroscopic guidance for insertion of tunnelled dialysis catheter CATHETER BIOFLO DURAMAX 24CM FDA Start: 11-15-2017 Fluoroscopic guidance for insertion of tunnelled dialysis catheter CATHETER BIOFLO DURAMAX 24CM FDA Start: 11-15-2017 Fluoroscopic guidance for insertion of tunnelled dialysis catheter CATHETER BIOFLO DURAMAX 24CM FDA Start: 11-15-2017 Fluoroscopic guidance for insertion of tunnelled dialysis catheter CATHETER BIOFLO DURAMAX 24CM FDA Start: 11-15-2017 Fluoroscopic guidance for insertion of tunnelled dialysis catheter CATHETER BIOFLO DURAMAX 24CM FDA Start: 11-15-2017 Fistulogram Multiple peripheral artery stent, bare-metal [id number] FDA Start: 06-17-2020 Fistulogram Multiple peripheral artery stent, bare-metal ()[id number] FDA Start: 06-08-2022 Goals Date Patient Goal Desired Activity /State Clinical Notes 03-06-2017 to 04-18-2023 Zack Lopes MD - 04/18/2023 3:10 PM ESTPatient Instructions Note Date & Type Note Facility 04-18-2023 History of Presen t illness Narrative Subjective Nury Venkat is a 88 y.o. female Chief Complaint Follow-up HPI Patient returns in follow-up of problems as noted. She is done well. She denies any awareness of atrial fibrillation and is happy with the treatment of metoprolol succinate and Eliquis for treatment of her atrial fibs. She otherwise has done well and denies orthopnea PND dyspnea exertion syncope near syncope palpitation or chest pain. We discussed cardiac signs and symptoms watch for and she has none. She is active and lives independently. Because of all the above we will continue as before. Review of Systems All other systems reviewed and are negative. Visit Vitals BP 126/62 (BP Location: Left arm, Patient Position: Sitting) Pulse 76 Ht 1.524 m (5') Wt 62.1 kg (137 lb) BMI 26.76 kg/m Smoking Status Never BSA 1.62 m Objective Physical Exam Constitutional: Appearance: Normal appearance. She is normal weight. HENT: Nose: Nose normal. Neck: Vascular: No carotid bruit. Cardiovascular: Rate and Rhythm: Normal rate. Pulses: Normal pulses. Heart sounds: Normal heart sounds. Pulmonary: Effort: Pulmonary effort is normal. Abdominal: General: Bowel sounds are normal. Palpations: Abdomen is soft. Genitourinary: Rectum: Normal. Musculoskeletal: General: Normal range of motion. Cervical back: Normal range of motion. Right lower leg: No edema. Left lower leg: No edema. Skin: General: Skin is warm and dry. Neurological: General: No focal deficit present. Mental Status: She is alert. Psychiatric: Mood and Affect: Mood normal. Behavior: Behavior normal. Thought Content: Thought content normal. Judgment: Judgment normal. Current Medications Current Outpatient Medications: Eliquis 2.5 mg tablet, Take 1 tablet (2.5 mg) by mouth 2 times a day., Disp: 180 tablet, Rfl: 3 furosemide (Lasix) 80 mg tablet, Take 1 tablet (80 mg) by mouth once daily., Disp: , Rfl: hydroxychloroquine (Plaquenil) 200 mg tablet, Take 1 tablet (200 mg) by mouth. Take one tablet every 3 days, Disp: , Rfl: levothyroxine (Synthroid, Levoxyl) 75 mcg tablet, Take 1 tablet (75 mcg) by mouth once daily., Disp: , Rfl: metoprolol succinate XL (Toprol-XL) 25 mg 24 hr tablet, Take 0.5 tablets (12.5 mg) by mouth once daily., Disp: 45 tablet, Rfl: 3 predniSONE (Deltasone) 5 mg tablet, Take 1 tablet (5 mg) by mouth every other day., Disp: , Rfl: Assessment/Plan 1. Paroxysmal atrial fibrillation (CMS/HCC) Asymptomatic. The selection of rate control with anticoagulant therapy has been appealing to her and we will continue. 2. Primary hypertension Review of treatment strategy demonstrates no need for adjustment 3. 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 (CMS/HCC) Managed by nephrology. Volume management and its interaction with blood pressure management were briefly discussed and apparently she has a satisfactory dry weight. 4. Never smoked any substance Noted Scribe Attestation By signing my name below, Meagan Costa HAJA , Scribe attest that this documentation has been prepared under the direction and in the presence of Zack Lopes MD. documented in this encounter [facility] Work Phone: 04-18-2023 Instructions Andrew Rajput MA - 04/18/2023 3:10 PM EST Please bring all medicines, vitamins, and herbal supplements with you when you come to the office. Prescriptions will not be filled unless you are compliant with your follow up appointments or have a follow up appointment scheduled as per instruction of your physician. Refills should be requested at the time of your visit. 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 There is no skin breakdown present. The fistula is slightly pulsatile and does not flatten well with arm elevation. Suspect a bit of outflow stenosis. She is currently having no issues with increased pressures or increased bleed times during her dialysis treatments. Discussed further with Dr. Lentz with recommendation to continue monitoring and follow-up at her next scheduled appointment in May. We discussed worsening signs that may warrant return for further evaluation prior to her next scheduled appointment. She knows to call us earlier with any additional questions or concerns. Feb, End stage renal disease (ICD-10 - N18.6) Feb, Dependence on renal dialysis (ICD-10 - Z99.2) [employer] Other 09-26-2023 Evaluation note* Encounter Date Diagnosis Assessment Notes Treatment Notes Treatment Clinical Notes Nov, End stage renal disease (ICD-10 - N18.6) Nov, Dependence on renal dialysis (ICD-10 - Z99.2) Nov, Other End-stage renal disease She has now been 6 months without intervention which is good. Of time for her. Her fistula by physical examination may have some mild outflow stenosis but given the size of the aneurysm it is difficult to tell based on physical examination alone since the outflow is smaller than the fistula due to the indwelling stents. For now we will see her back without intervention and we will plan a 6-month interval this time since she is doing well. She understands and agrees with that plan. 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 I did explain to her that this is just a bit of scarring from repetitive cannulation of her fistula. I do suspect by physical examination that she has some mild restenosis but at this point in time she is having no issues during hemodialysis. Dr. Lentz in the room to further evaluate and answer additional patient questions. For the time being, as she is having no difficulty with access at this point, we will plan to follow her along closely and see her again in a couple of months time for reevaluation. She knows to call us in the meantime with any issues or concerns whatsoever. Aug, Dependence on renal dialysis (ICD-10 - Z99.2) [employer] Other 09-24-2022 Evaluation note* Encounter Date Diagnosis Assessment Notes Treatment Notes Treatment Clinical Notes Nov, Dysuria (ICD-10 - R30.0) Nov, Acute cystitis with hematuria (ICD-10 - N30.01) Take medication as directed. Urine analysis shows abnormalities today in office. Urine culture will be sent to lab. Will call with results if warranted. Increase fluid intake. Follow hygiene guidelines such as wiping front to back, avoid using perfumed lotions, bath beads, bubble bath. Recommend follow up with primary care provider after treatment completed to make sure infection has cleared. [employer] Other 07-23-2022 Evaluation note* Encounter Date Diagnosis Assessment Notes Treatment Notes Treatment Clinical Notes Sep, Dysuria (ICD-10 - R30.0) Sep, Urinary tract infection without hematuria, site unspecified (ICD-10 - N39.0) Urinary tract infection (UTI) home care material was printed Drink plenty fluids, get plenty of rest. Continue home medications as prescribed. Take the ciprofloxacin as prescribed until gone. Keep the wound on your arm clean and dry. Follow-up with your family physician on Sunday as scheduled without fail. Go to the ER for worsening symptoms or concerns. Sep, History of dog bite (ICD-10 - Z78.9) [employer] Other 07-05-2022 NotePROCEDURE: XR FOREARM RT 2V HISTORY: Dog bite of forearm COMPARISON: None. FINDINGS: BONES:No bone fracture or lesion with specific attention to the distal forearm. Arthritic degenerative changes of the proximal interphalangeal joints of the second third digits. SOFT TISSUES:Soft tissue puncture wounds and swelling involving the distal forearm. No radiopaque foreign body. Multiple surgical clips in the region of the elbow. EFFUSION:None visible. OTHER: Negative. IMPRESSION: 1. No radiopaque foreign bodies within the soft tissues of the distal forearm at site of dog bite. 2. No bone involvement. Electronically authenticated by: MARILEE PEREZ Date: 2021-09-27 16:52[facility]01-14-2022 Evaluation note* Encounter Date Diagnosis Assessment Notes Treatment Notes Treatment Clinical Notes Mar, Dysuria (ICD-10 - R30.0) Take medication as directed. Urine analysis shows abnormalities today in office. Urine culture will be sent to lab. Will call with results if warranted. Increase fluid intake. Follow hygiene guidelines such as wiping front to back, avoid using perfumed lotions, bath beads, bubble bath. Recommend follow up with primary care provider after treatment completed to make sure infection has cleared. No sign or symptoms of pyelonephritis, pelvic inflammatory disease, nephrolithiasis, or chemical urethritis. Will treat patient with cefdinir as there is evidence of uti. Pt understands and agrees with the plan. [employer] Other 01-08-2020 Progress note Author Kathy Moss [facility] April 02, 2019 5:00pm Note Date/Time April 02, 2019 11 :10am [facility] at [address] [address] Hem/Onc Follow Up Note - OP Signed Patient: Nury Moura MR#: [id number] : 1935 Acct:[id number] Age/Sex: 84 / F Type: REG RCR Copies to: Naima Horan MD NO FAMILY PHYSICIAN Gurmeet Peña,DO~ Subjective Date/Time of Service: Date of Service: 04/02/2019 Time of Service: 11:09 Chief Complaint: Patient is here for routine history of breast cancer on Anastrozole with lab work and dexascan for review. HPI: The patient presents for 6 month followup of left breast cancer and monoclonal gammopathy evaluation for mild asymptomatic hypercalcemia. IgM has been elevated, but mild regression over the past 1 year with undetectable M spike. She started hemodialysis about --now has right arm AV fistula in place. She has not had any bone pain or worsening of her chronic mild anemia. Borderline hypercalcemia, no longer taking supplemental calcium. DEXA scan 01/2017 showed borderline osteopenia of the right femoral neck but normal left femoral neck andlumbar spine. Repeat DEXA scan 03/08/2019 also shows osteopenia that has progressed from previous. The patient should complete aromatase inhibitor in the next 6 months. Medication for osteopenia may be deferred to nephrology who is following her on hemodialysis. She also has prior stage 2a breast cancer and has not had any changes in left chest wall since her mastectomy. She follows with Dr. Peña--stable breast exam. She reports that her initial presentation was due to abnormal mammogram. She requested mastectomy as she was afraid of the side effects of radiation. She notes that she occasionally has hot flashes on her anastrozole but otherwisetolerates this well. Her amiodarone was stopped by her manager [employer] May 2017 due to oral lesions--they have not recurred since off therapy. CT of the neck was unremarkable and she has not had any significant dysrhythmia. She takes amitriptyline for sleep. No recent infections. She does report a remote history of TIA 20 years ago and has been using her aspirin 81mg each day. DIAGNOSIS: 1. 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 Mastectomy on 09/02/2014. 2. Elevated kappa and lambda light chain, with ratio of 2.2, consistent with polyclonal process. Monoclonal gammopathy of undetermined significance. 3. Stage chronic kidney disease followed by nephrology. Renal function has declined and she is now on hemodialysis since August 2017. 4. The patient stopped her supplemental calcium when she was noted to have elevated calcium to 10.7 on routine laboratory testing in 2016. This was asymptomatic and she had a normal PTH and 25 hydroxy vitamin D. Bone scan was negative as well as skeletal survey. Her calcium levels have returned to normalover 6 months. Most recent calcium was again elevated despite holding calcium and vitamin D therapy. 5. Baseline DEXA scan was performed 02/15/2015 which was normal. AP spine T score was -0.4, left femoral neck T score -0.5, right femoral neck T score -0.5. We reviewed most recent DEXA scan from February 2019--AP spine T score -1.2, osteopenia; left femoral neck T score -1.8, osteopenia; right femoral neck T score -1.6, osteopenia. Deferring repletion to nephrology due to hemodialysis patient. 6. Bone marrow biopsy from June 2016 previously reviewed. Minimal kappa restricted plasma cells by flow cytometry 0.1%, 5-6% plasma cells by CD138 with no worrisome features (CD56 and Cyclin D1 negative). Consistent with MGUS. Continue follow-up with SPEP, UPEP, serum kappa lambda light chains, and quantitative immunoglobulins every 6 months. She has mild elevation of IgM without evidence of adenopathy suggestive of Waldenstr?m's. --Due to absence of M spike and chronic hemodialysis, I would defer routine follow-up of monoclonal gammopathy to nephrology if the patient has symptoms concerning for progression to myeloma. - Summary of Therapies Summary of Therapies: 1. Left breast mastectomy by Dr. Gurmeet Peña 09/02/2014. 2. Arimidex therapy initiated September 2014 through February 2015. Stopped due to excessive salivation. 3. Exemestane therapy 25 mg daily started March 2015 and tolerated well. No significant side effects with this therapy. 5 years of therapy will be complete09/2019 (recently refilled with Arimidex and patient has not had issues). ROS Details: All systems reviewed & no additional complaints except as documented Subjective/ROS - Narrative: Constitutional: No Chills, No Diaphoresis, No Fatigue, No Fever, No Malaise, NoNight Sweats, No Weakness, No Weight Gain, No Weight Loss Gastrointestinal: No Abdominal Pain, No Black Stool, No Bloating, No Bloody Stool, No Constipation/Diarrhea, No Dysphagia, No Hematemesis, No Nausea/Vomiting, No Postprandial Pain, No Rectal Bleeding or pain, Cardiovascular: No Chest Pain, No Edema, No Palpitations, No Syncope Genitourinary: No Discharge, No Dysuria, No Flank Pain, No Frequency, No Hematuria, No Incontinence, No Urinary Retention--currently on hemodialysis since 08/2017. Musculoskeletal: Mild chronic Back Pain, No Chest Wall Tenderness (left mastectomy site well healed), No Joint Pain, No Joint Swelling, No Muscle Stiffness, No Myalgia, No Neck Pain--right arm AV fistula well healed HEENT: No Blurred Vision, No Discharge, No Ear Pain, No Epistaxis, No Loss of Hearing, No Rhinorrhea, No Sore Throat--resolved oral lesions Respiratory: No Cough, No Hemoptysis, No Shortness of Breath, No Sputum, No Wheezing Neurological: No Dizziness, No Headache, No Numbness, No Tingling Hematologic/Lymphatic: No Bleeds Easily, No Bruises Easily, No Enlarged Lymph Nodes Endocrine: No Excessive Sweating, No Flushing, No Intolerance to Cold, No Intolerance to Heat Psychiatric: No Anxiety, No Depressed Mood, No Insomnia Integumentary: No Jaundice, No Lesions, No Petechiae, No Rash LEFT Breast: No Changes--s/p left mastectomy RIGHT Breast: No Changes, No Lump(s), No Nipple Discharge Allergic/Immunology: No Pruritus PMFSH - Medical History Medical History: Medical History (Last Reviewed 02/26/19 @ 13:28 by Pat García RN) A-fib Anemia Breast cancer Left CHI (closed head injury) Chronic kidney disease Contusion, chest wall right Gross hematuria HTN (hypertension) Hyperkalemia Hyponatremia Iron deficiency anemia Metabolic acidosis Monoclonal gammopathy Osteopenia PAT (paroxysmal atrial tachycardia) UTI (urinary tract infection) Uremia - Surgical History Surgical History: Surgical History (Last Updated 02/26/19 @ 13:29 by Pat García RN) H/O mastectomy Left History of foot surgery Lt ankle - Family History Family History: Family History (Last Updated 02/26/19 @ 13:29 by Pat García RN) Other Cancer Heart disease - Social History Smoking Status: Never smoker Substance Use Type: None Home Medications & Allergies Allergies amiodarone Allergy (Verified 02/26/19 13:21) Swelling of Lip/Tongue/Throat lisinopril Allergy (Verified 02/26/19 13:21) Cough miconazole [From Neosporin AF] Allergy (Verified 02/26/19 13:21) worsened ear infection nitrofurantoin Allergy (Verified 02/26/19 13:21) Hives Sulfa (Sulfonamide Antibiotics) Allergy (Verified 02/26/19 13:21) Rash tobramycin [From Tobrex] Allergy (Verified 02/26/19 13:21) worsened eye infection Home Medications amitriptyline 10 mg PO QHS PRN 02/26/17 [History Confirmed 04/02/19] hydralazine 25 mg PO DAILY 02/26/17 [History Confirmed 04/02/19] melatonin 3 mg PO QHS PRN 05/22/17 [History Confirmed 04/02/19] aspirin 81 mg PO 2XW 11/17/17 [History Confirmed 04/02/19] apixaban [Eliquis] 2.5 mg PO BID 03/05/18 [History Confirmed 04/02/19] anastrozole [Arimidex] 1 mg PO DAILY 03/27/18 [History Confirmed 04/02/19] levothyroxine [Synthroid] 100 mcg PO DAILY 03/27/18 [History Confirmed 04/02/19] niacin 1,000 mg PO DAILY 04/03/18 [History Confirmed 04/02/19] psyllium husk [Metamucil] 1 dose PO DAILY 04/03/18 [History Confirmed 04/02/19] metoprolol succinate [Toprol XL] 12.5 mg PO QHS 09/25/18 [History Confirmed 04/02/19] furosemide 80 mg PO DAILY 11/27/18 [History Confirmed 04/02/19] Objective - Height/Weight Height/Weight: Height 5 ft 0.5 in Weight 66.7 kg - Vital Signs Vital Signs: 04/02/19 11:00 Temperature 97.5 F L Pulse Rate [Right Brachial] 86 Respiratory Rate 20 Blood Pressure [Left Arm] 153/76 H 02 Sat by Pulse Oximetry 100 - Emotional Needs Assessment Emotional Needs Assessment: Emotional Needs Identified? No Distress Screening Total 0 - ECOG Performance Status ECOG Score: 1 Results - Labs Labs: Diagram of Most Recent CBC and CMP 03/24/19 12:56 03/24/19 12:56 03/24/2019: Calcium 10.3 Most recent immunology studies 09/17/2018: IgG 1354, IgA 122, IgM 442 (this was improved from 09/12/2017 when IgM was 664) Serum immunofixation showed no monoclonality. Free kappa 119.3, free lambda 68.6, free light kappa/lambda ratio 1.74 (mildly increased). I do not plan to send further studies for monoclonal gammopathy as per HPI. - Impressions We reviewed most recent DEXA scan from February 2019--AP spine T score -1.2, osteopenia; left femoral neck T score -1.8, osteopenia; right femoral neck T score -1.6, osteopenia. Deferring repletion to nephrology due to hemodialysis patient. Date of Service: 09/17/18 MM/MM diagnostic mammo RT w/CAD: h/o left breast cancer for dx mammo Copies to: Kathy Moss MD~ RIGHT DIAGNOSTIC MAMMOGRAMS - FULL FIELD DIGITAL WITH TOMOSYNTHESIS CLINICAL DATA: Status post left mastectomy in 2014, yearly checkup. COMPARISON: 09/18/2017, 09/14/2016, and 07/14/1915 FINDINGS: Craniocaudal and mediolateral oblique views of the right were obtainedincluding the Tomosynthesis images using low-dose digital technique. Mild amount of scattered fibroglandular parenchyma is noted. Several scattered benign calcifications are shown. There are no developing masses, typically malignant calcifications or architectural distortion. MM/MM diagnostic mammo RT w/CAD IMPRESSION: NO MAMMOGRAPHIC EVIDENCE OF MALIGNANCY. ROUTINE FOLLOW-UP IS RECOMMENDED IN ONE YEAR. RESULT CODE: 2 Benign Findings(s) DENSITY CODE: 2 (approximately 25-50% glandular) FOLLOW UP: 1YR The false-negative rate of mammography is approximately 10-percent. Management of a palpable abnormality must be based on clinical grounds. Impression dictated by: Sebas Granados M.D.09/17/2018 2:33 PM Assessment and Plan (1) Cancer of left breast greater than or equal to 2 cm in greatest dimension 84 yo female with Stage IIB, low risk Oncotype ER/OK+, Her2 negative left breast cancer s/p mastectomy and on exemestane due to intolerance of Arimidex (although refilled with a REM attacks and patient is tolerating well currently). No evidence of recurrence by exam or mammography 08/2018. Plan 5 years of AI therapy--end of therapy 09/2019. I will see her for followup in 6 months, sooner prn. Moderate complexity visit over 30 minutes for breast cancer, osteopenia from aromatase inhibitor, borderline hypercalcemia, prior monoclonality now resolved,and hemodialysis for ESRD followup. (2) MGUS (monoclonal gammopathy of unknown significance) During evaluation for mild hypercalcemia and stage IV CKD (now on hemodialysis),she was found to have a small M-spike and abnormal kappa/lambda ratio. Immunofixation showed polyclonal immunoglobulins but mild elevation of IgM whichremained stable on most recent quantitative immunoglobulins in August 2018. Now on hemodialysis since November 2017 and hypercalcemia borderline with intermittent supplemental calcium and vitamin D. Normal skeletal survey and bone scan, PTH, and 25-OH Vit D. Bone marrow aspiration and biopsy June 2016 shows no increase in plasma cells ,consistent with MGUS. Given clinical stability, I recommended deferring followup labs (SPEP, Viscosity, kappa/lambda ratio, and IgG/IgM/IgA) for this condition to nephrology on an as-needed basis, although we may repeat if symptomatic disease, worsening hypercalcemia or frequent infections. Patient expressed understanding of counseling and agrees with the plan of care outlined above. (3) Chronic kidney disease requiring chronic dialysis Started hemodialysis 11/2017. Renal failure is not felt to be associated with MGUS given prior unremarkable bone marrow biopsy and stable labs without evidence of M spike or kappa lambda ratio. (4) Osteopenia due to cancer therapy DEXA scan from August 2018 reviewed showing osteopenia of lumbar spine and bilateral femoral necks. Her calcium has been on hold due to borderline hypercalcemia without clear etiology from prior testing of PTH, vitamin D, or bone marrow biopsy for MGUS as noted above. She is no longer on supplemental calcium but does take vitamin D. She will complete aromatase inhibitor therapy for 5-year course in 6 months. I will defer further management of osteopenia to nephrologysince she is on chronic dialysis. Next DEXA will be due 03/14/2021. Patient expressed understanding. (5) History of iron deficiency anemia H/o multifactorial anemia. Prior iron repletion with iron sat of 25% in 10/2017. Bone marrow in 2016 showed mild decrease in iron stores (12%) and she was previously recommended to take daily supplemental iron OTC. She states that iron repletion is performed by nephrology and they follow anemia of chronic kidney disease. (6) Hypercalcemia This has been borderline and calcium supplement has been held due to borderline hypercalcemia. She is now on hemodialysis with osteopenia after aromatase inhibitor therapy. I will defer management of her borderline hypercalcemia to nephrology who is following parathyroid levels on dialysis. (7) Encounter for monitoring aromatase inhibitor therapy Tolerating Exemestane 25mg daily well. End of 5 year course of AI therapy is 09/2019. - Chemo Plan Chemo Plan (Dose, Rate, Freq): Recently exemestane was refilled with anastrozole 1 mg daily. She will continuea total of 5 years of AI therapy with completion in September 2019. Goal of Treatment: Curative - Time with Patient Coordination of Care & Counseling Time: Greater than 50% of time spent with patient was for coordination of care (as documented) and [id number] counseling of patient and/or family. Dictated By: Kathy Moss MD DD/ [id number] Signed By: <Electronically signed by MD Kathy Moss> 04/02/19 1703 [facility] Work Phone: [phone] 238-295407-03-2019 Progress note Author Kathy Moss [facility] September 25, 2018 8:48pm Note Date/Time September 25, 2018 11:46 am [facility] at [place] [id number] Hem/Onc Follow Up Note - OP Signed Patient: Nury Moura MR#: [id number] : 1935 Acct:[id number] Age/Sex: 83 / F Type: REG RCR Copies to: NO FAMILY PHYSICIAN MD Gurmeet Christianson,~ Subjective Date/Time of Service: Date of Service: 09/25/2018 Time of Service: 11:46 Chief Complaint: Patient is here for six month follow up history of breast cancer and mgus, lab work for review and no concerns voiced. - Diagnosis DIAGNOSIS: 1. 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 Mastectomy on 09/02/2014. 2. Elevated kappa and lambda light chain, with ratio of 2.2, consistent with polyclonal process. Monoclonal gammopathy of undetermined significance. 3. Stage chronic kidney disease followed by nephrology. Renal function has declined and she is now on hemodialysis since August 2017. 4. The patient stopped her supplemental calcium when she was noted to have elevated calcium to 10.7 on routine laboratory testing in 2015. This was asymptomatic and she had a normal PTH and 25 hydroxy vitamin D. Bone scan was negative as well as skeletal survey. Her calcium levels have returned to normalover 6 months. Most recent calcium was again elevated despite holding calcium and vitamin D therapy. 5. Baseline DEXA scan was performed 02/15/2015 which was normal. AP spine T score was -0.4, left femoral neck T score -0.5, right femoral neck T score -0.5. She will be due for next DEXA scan in January 2017--ordered today before next followup visit. 6. Bone marrow biopsy from June 2016 previously reviewed. Minimal kappa restricted plasma cells by flow cytometry 0.1%, 5-6% plasma cells by CD138 with no worrisome features (CD56 and Cyclin D1 negative). Consistent with MGUS. Continue follow-up with SPEP, UPEP, serum kappa lambda light chains, and quantitative immunoglobulins every 6 months. She has mild elevation of IgM without evidence of adenopathy suggestive of Waldenstr?m's. PAST MEDICAL HISTORY: 1. Lipoma removed from left ankle in 1985 and 2006. 2. Tonsillectomy. 3. Superficial skin cancer. 4. Insomnia. 5. Hypertension. 6. Hypothyroidism. 7. Iron deficiency. ALLERGIES: She is allergic to: 1. Lisinopril this causes cough and gastroesophageal reflux. 2. Neosporin this causes swelling of the ear when used for earache. 3. She is allergic to sulfa drugs that cause a rash on chest. 4. Tobrex eye ointment causes swelling of the eyes. FAMILY HISTORY: Her family history is notable for diabetes, heart disease and breast cancer in two aunts (1 paternal aunt, 1 maternal aunt). One of her sisters had a cerebrovascular accident. Her brother has COPD and another brother has some sortof neurological dysfunction. Another brother has coronary artery disease. SOCIAL HISTORY: She is and retired. She lives with her spouse. 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 PERSONAL HISTORY: There is no history of smoking, alcoholism or recreational drug usage. HPI: The patient presents for 6 month followup of MGUS performed for mild asymptomatic hypercalcemia. IgM has been elevated, but mild regression over thepast 6 months with undetectable M spike. She started hemodialysis about 9 months ago--now has right arm AV fistula in place. She has not had any bone pain or worsening of her chronic mild anemia. Borderline hypercalcemia--takes supplemental . DEXA scan 01/2017 showed borderline osteopenia of the right femoral neck but normal left femoral neck and lumbar spine. She also has prior stage 2a breast cancer and has not had any changes in left chest wall since her mastectomy. She follows with Dr. Peña--stable breast exam. She reports that her initial presentation was due to abnormal mammogram. She requested mastectomy as she was afraid of the side effects of radiation. She notes that she occasionally has hot flashes on her Exemestane but otherwise tolerates this well. She has not had the excessive nasal drainage and salivation that she noted with Arimidex therapy. Her amiodarone was stopped by her manager [employer] May 2017 due to oral lesions--they have not recurred since off therapy. CT of the neck was unremarkable and she has not had any significant dysrhythmia. She takes amitriptyline for sleep. No recent infections. She does report a remote history of TIA 20 years ago and has been using her aspirin 81mg each day. - Summary of Therapies Summary of Therapies: 1. Left breast mastectomy by Dr. Gurmeet Peña 09/02/2014. 2. Arimidex therapy initiated September 2014 through February 2015. Stopped due to excessive salivation. 3. Exemestane therapy 25 mg daily started March 2015 and tolerated well. No significant side effects with this therapy. 5 years of therapy will be complete09/2019. ROS Details: All systems reviewed & no additional complaints except as documented Subjective/ROS - Narrative: Constitutional: No Chills, No Diaphoresis, No Fatigue, No Fever, No Malaise, NoNight Sweats, No Weakness, No Weight Gain, No Weight Loss Gastrointestinal: No Abdominal Pain, No Black Stool, No Bloating, No Bloody Stool, No Constipation/Diarrhea, No Dysphagia, No Hematemesis, No Nausea/Vomiting, No Postprandial Pain, No Rectal Bleeding or pain, Cardiovascular: No Chest Pain, No Edema, No Palpitations, No Syncope Genitourinary: No Discharge, No Dysuria, No Flank Pain, No Frequency, No Hematuria, No Incontinence, No Urinary Retention--currently on hemodialysis since 11/2017. Musculoskeletal: Mild chronic Back Pain, No Chest Wall Tenderness (left mastectomy site well healed), No Joint Pain, No Joint Swelling, No Muscle Stiffness, No Myalgia, No Neck Pain--right arm AV fistula well healed HEENT: No Blurred Vision, No Discharge, No Ear Pain, No Epistaxis, No Loss of Hearing, No Rhinorrhea, No Sore Throat--resolved oral lesions Respiratory: No Cough, No Hemoptysis, No Shortness of Breath, No Sputum, No Wheezing Neurological: No Dizziness, No Headache, No Numbness, No Tingling Hematologic/Lymphatic: No Bleeds Easily, No Bruises Easily, No Enlarged Lymph Nodes Endocrine: No Excessive Sweating, No Flushing, No Intolerance to Cold, No Intolerance to Heat Psychiatric: No Anxiety, No Depressed Mood, No Insomnia Integumentary: No Jaundice, No Lesions, No Petechiae, No Rash LEFT Breast: No Changes--s/p left mastectomy RIGHT Breast: No Changes, No Lump(s), No Nipple Discharge Allergic/Immunology: No Pruritus PMFSH - History Attestation statement: The following information was validated with the patient. Source: Old Records Reviewed - Medical History Medical History: Medical History (Last Reviewed 09/25/18 @ 11:46 by Kathy Moss MD) A-fib Anemia Breast cancer Left CHI (closed head injury) Chronic kidney disease Contusion, chest wall right Gross hematuria HTN (hypertension) Hyperkalemia Hyponatremia Iron deficiency anemia Metabolic acidosis Monoclonal gammopathy Osteopenia PAT (paroxysmal atrial tachycardia) UTI (urinary tract infection) Uremia - Surgical History Surgical History: Surgical History (Last Reviewed 09/25/18 @ 11:46 by Kathy Moss MD) H/O mastectomy Left - Social History Smoking Status: Never smoker Substance Use Type: None Home Medications & Allergies Allergies Allergy/AdvReac Type Severity Reaction Status Date / Time amiodarone Allergy Swelling Verified 07/01/18 11:48 of Lip/Tongue/Throat lisinopril Allergy Cough Verified 07/01/18 11:48 miconazole Allergy worsened Verified 07/01/18 11:48 [From Neosporin AF] ear infection Sulfa (Sulfonamide Allergy Rash Verified 07/01/18 11:48 Antibiotics) tobramycin [From Tobrex] Allergy worsened Verified 07/01/18 11:48 eye infection Home Medications Medication Instructions Recorded Confirmed Type amitriptyline 10 mg PO QHS 02/26/17 09/25/18 History hydralazine 25 mg PO BID 02/26/17 09/25/18 History melatonin 3 mg PO QHS PRN 05/22/17 09/25/18 History furosemide 40 mg PO DAILY 30 Days #30 tab 11/06/17 09/25/18 Rx aspirin 81 mg PO 2XW 11/17/17 09/25/18 History apixaban [Eliquis] 2.5 mg PO BID 03/05/18 09/25/18 History anastrozole [Arimidex] 1 mg PO DAILY 03/27/18 09/25/18 History levothyroxine [Synthroid] 100 mcg PO DAILY 03/27/18 09/25/18 History calcium acetate 1 tab PO BID 04/03/18 09/25/18 History niacin 1,000 mg PO DAILY 04/03/18 09/25/18 History psyllium husk [Metamucil] 1 dose PO DAILY 04/03/18 09/25/18 History metoprolol succinate [Toprol XL] 12.5 mg PO DAILY 09/25/18 09/25/18 History nitrofurantoin macrocrystal 100 mg PO Q12H 09/25/18 09/25/18 History Objective - Resuscitation Status Resuscitation Status: Full Code - Height/Weight Height/Weight: Height 5 ft 0.5 in Weight 66.678 kg - Vital Signs Vital Signs: 09/25/18 11:41 Temperature 98.1 F Pulse Rate [Right Brachial] 85 Respiratory Rate 20 Blood Pressure [Left Arm] 147/67 H 02 Sat by Pulse Oximetry 95 - Emotional Needs Assessment Emotional Needs Assessment: Emotional Needs Identified? No Distress Screening Total 0 - ECOG Performance Status ECOG Score: 1 Physical Exam Narrative: CONSTITUTIONAL: The patient is in no acute distress. HEAD / FACE: Normocephalic. EYES: Pupils are equal and reactive to light. Conjunctivae and lids are benign in appearance. Ocular movement intact. EARS: Hearing grossly intact. NOSE / MOUTH / THROAT: Nose, mouth, tongue and oropharynx are benign in appearance. No signs of inflammation. NECK / THYROID: Neck is supple. Thyroid is symmetrical, without thyromegaly, masses or palpable nodules. LYMPHATIC: No palpable cervical, supraclavicular, axillary, or inguinal adenopathy. RESPIRATORY: Normal to inspection. Lungs clear to auscultation and percussion. No wheezing, rales, rhonchi or rubs. Normal effort. CARDIOVASCULAR: Regular rate and rhythm. No murmurs, gallops, or rubs. BREASTS: Right breast no tenderness, no induration, no mass, left mastectomy - Well-healed no skin changes VASCULAR: Carotid, radial, femoral and pedal pulses present bilaterally. No bruits. Right arm AV fistula in place. ABDOMEN: Bowel sounds normoactive. Soft, nontender and non-distended. No hepatosplenomegaly. No masses. GENITOURINARY: No CVA tenderness. No suprapubic fullness or tenderness. No groinadenopathy. No evidence of hernias. INTEGUMENTARY: The skin is unremarkable. No rashes. No suspicious lesions BACK / SPINE: The back is nontender. No step off deformity. MUSCULOSKELETAL: Normal musculature, no joint deformities or abnormalities, normal range of motion for all four extremities. EXTREMITIES: No edema, cyanosis or clubbing. No Shaheed sign. NEUROLOGICAL: Alert and oriented. Cranial nerves intact. No gross motor or sensory deficits. PSYCHIATRIC: No anxiety or evidence of depression. Results - Labs Labs: Diagram of Most Recent CBC and CMP 09/17/18 12:58 09/17/18 12:58 Labs - Last 7 Days 09/17/18 12:58: IgG 1354, IgA 122, IgM 442 H, Serum Immunofixation , Free [place] LC, Quant 119.3 H, Free Lambda LC, Quant 68.6 H, Free [place]/Lambda Ratio 1.74 H - Impressions Date of Service: 09/17/18 MM/MM diagnostic mammo RT w/CAD: h/o left breast cancer for dx mammo Copies to: Kathy Moss MD~ RIGHT DIAGNOSTIC MAMMOGRAMS - FULL FIELD DIGITAL WITH TOMOSYNTHESIS CLINICAL DATA: Status post left mastectomy in 2014, yearly checkup. COMPARISON: 09/18/2017, 09/14/2016, and 07/14/1915 FINDINGS: Craniocaudal and mediolateral oblique views of the right were obtainedincluding the Tomosynthesis images using low-dose digital technique. Mild amount of scattered fibroglandular parenchyma is noted. Several scattered benign calcifications are shown. There are no developing masses, typically malignant calcifications or architectural distortion. MM/MM diagnostic mammo RT w/CAD IMPRESSION: NO MAMMOGRAPHIC EVIDENCE OF MALIGNANCY. ROUTINE FOLLOW-UP IS RECOMMENDED IN ONE YEAR. RESULT CODE: 2 Benign Findings(s) DENSITY CODE: 2 (approximately 25-50% glandular) FOLLOW UP: 1YR The false-negative rate of mammography is approximately 10-percent. Management of a palpable abnormality must be based on clinical grounds. Impression dictated by: Sebas Granados M.D.09/17/2018 2:33 PM Assessment and Plan (1) Cancer of left breast greater than or equal to 2 cm in greatest dimension 83 yo female with Stage IIB, low risk Oncotype ER/OK+, Her2 negative left breast cancer s/p mastectomy and on exemestane due to intolerance of Arimidex. No evidence of recurrence by exam or mammography 08/2018. Plan 5 years of AI therapy--end of therapy 09/2019. I will see her for followup in 6 months, sooner prn. Moderate complexity visit over 30 minutes for breast cancer, MGUS, and hemodialysis for ESRD followup and review of complex laboratory testing. (2) MGUS (monoclonal gammopathy of unknown significance) During evaluation for mild hypercalcemia and stage IV CKD (now on hemodialysis),she was found to have a small M-spike and abnormal kappa/lambda ratio. Immunofixation showed polyclonal immunoglobulins but mild elevation of IgM which remained stable on most recent quantitative immunoglobulins in January 2017. Now on hemodialysis since November 2017 and hypercalcemia borderline with intermittent supplemental calcium and vitamin D. Normal skeletal survey and bone scan, PTH, and 25-OH Vit D. Bone marrow aspiration and biopsy June 2016 shows no increase in plasma cells ,consistent with MGUS. Given clinical stability, I recommended observation only for MGUS and we extend surveillance to 12 month followup labs (SPEP, Viscosity, kappa/lambda ratio, and IgG/IgM/IgA) for this condition or sooner if symptomaticdisease, frequent infections, or marked rise in M-spike or immunoglobulins. Patient expressed understanding of counseling and agrees with the plan of care outlined above. (3) Chronic kidney disease requiring chronic dialysis Started hemodialysis 11/2017. Renal failure is not felt to be associated with MGUS given prior unremarkable bone marrow biopsy and stable labs without evidence of M spike or kappa lambda ratio. (4) Osteopenia due to cancer therapy Borderline decline in the right femoral neck T score. Patient had recent hypercalcemia with no clear etiology from testing of PTH, vitamin D, or bone marrow biopsy for MGUS as noted above. She is no longer on supplemental calciumbut does take vitamin D. We will follow her closely with dietary supplementation of calcium with follow-up DEXA scan every 2 years on aromatase inhibitor therapy. Next DEXA is due 01/2019 and was ordered today. Patient expressed understanding. (5) Iron deficiency anemia H/o multifactorial anemia. Prior iron repletion with iron sat of 25% in 10/2017. Bone marrow in 2016 showed mild decrease in iron stores (12%) and she was previously recommended to take daily supplemental iron OTC. She states that iron repletion is performed by nephrology and they follow anemia of chronic kidney disease. (6) Encounter for monitoring aromatase inhibitor therapy Tolerating Exemestane 25mg daily well. End of 5 year course of AI therapy is 09/2019. - Chemo Plan Chemo Plan (Dose, Rate, Freq): Exemestane 25mg daily x 5 years, end of therapy 09/2019--then annual f/u thereafter. Goal of Treatment: Curative - Time with Patient Total Time Spent with Patient: 30 min Coordination of Care & Counseling Time: Greater than 50% of time spent with patient was for coordination of care (as documented) and [id number] counseling of patient and/or family. Dictated By: Kathy Moss MD DD/ [id number] Signed By: <Electronically signed by MD Kathy Moss> 09/25/188 [facility] Work Phone: [phone] Progress note Author Kathy Moss [facility] March 06, 2018 9:42pm Note Date/Time March 05, 2018 2:17pm [facility] [place] [address] Hem/Onc Follow Up Note - OP Signed Patient: Nury Moura MR#: [id number] : 1935 Acct:[id number] Age/Sex: 83 / F Type: REG RCR Copies to: NO FAMILY PHYSICIAN MD Gurmeet Christianson,~ Subjective Date/Time of Service: Date of Service: 03/05/2018 Time of Service: 14:16 Chief Complaint: Patient is here for six month follow up history of breast cancer currently on Anastrozole and Mgus with lab work for review. Patient has since started dialysis since last visit. - Diagnosis DIAGNOSIS: DIAGNOSIS 1. 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 Mastectomy on 09/02/2014. 2. Elevated kappa and lambda light chain, with ratio of 2.2, consistent with polyclonal process. Monoclonal gammopathy of undetermined significance. 3. Stage chronic kidney disease followed by nephrology. Renal function has declined and she is now on hemodialysis since August 2017. 4. The patient stopped her supplemental calcium when she was noted to have elevated calcium to 10.7 on routine laboratory testing in 2016. This was asymptomatic and she had a normal PTH and 25 hydroxy vitamin D. Bone scan was negative as well as skeletal survey. Her calcium levels have returned to normalover 6 months. Most recent calcium was again elevated despite holding calcium and vitamin D therapy. 5. Baseline DEXA scan was performed 02/15/2015 which was normal. AP spine T score was -0.4, left femoral neck T score -0.5, right femoral neck T score -0.5. She will be due for next DEXA scan in January 2017--ordered today before next followup visit. 6. Bone marrow biopsy from June 2016 previously reviewed. Minimal kappa restricted plasma cells by flow cytometry 0.1%, 5-6% plasma cells by CD138 with no worrisome features (CD56 and Cyclin D1 negative). Consistent with MGUS. Continue follow-up with SPEP, UPEP, serum kappa lambda light chains, and quantitative immunoglobulins every 6 months. She has mild elevation of IgM without evidence of adenopathy suggestive of Waldenstr?m's. PAST MEDICAL HISTORY: 1. Lipoma removed from left ankle in 1985 and 2006. 2. Tonsillectomy. 3. Superficial skin cancer. 4. Insomnia. 5. Hypertension. 6. Hypothyroidism. 7. Iron deficiency. ALLERGIES: She is allergic to: 1. Lisinopril this causes cough and gastroesophageal reflux. 2. Neosporin this causes swelling of the ear when used for earache. 3. She is allergic to sulfa drugs that cause a rash on chest. 4. Tobrex eye ointment causes swelling of the eyes. FAMILY HISTORY: Her family history is notable for diabetes, heart disease and breast cancer in two aunts (1 paternal aunt, 1 maternal aunt). One of her sisters had a cerebrovascular accident. Her brother has COPD and another brother has some sort of neurological dysfunction. Another brother has coronary artery disease. SOCIAL HISTORY: She is and retired. She lives with her spouse. 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 PERSONAL HISTORY: There is no history of smoking, alcoholism or recreational drug usage. HPI: The patient presents for followup of MGUS performed for mild asymptomatic hypercalcemia. IgM is mildly elevated with no progression of M spike past 6 months. She started hemodialysis about 3 months ago--temporary dialysis catheter in place. She has not had any bone pain or worsening of her chronic mild anemia, or recurrence of hypercalcemia. DEXA scan 01/2017 showed borderline osteopenia of the right femoral neck but normal left femoral neck andlumbar spine. She also has prior stage 2a breast cancer and has not had any changes in left chest wall since her mastectomy. She sees Dr. Peña with normal breast exam. She reports that her initial presentation was due to abnormal mammogram. She reported that she requested mastectomy as she was afraid of the side effects of radiation. She notes that she occasionally has hot flashes on her Exemestane but otherwise tolerates this well. She has not had the excessive nasal drainageand salivation that she noted with Arimidex therapy. Her amiodarone was stopped by her manager [employer] May 2017 due to oral lesions--they have not recurred since off therapy. CT of the neck was unremarkable and she has not had any significant dysrhythmia. She takes amitriptyline for sleep. No recent infections. She does report a remote history of TIA 20 years ago and has been using her aspirin 81mg each day. - Summary of Therapies Summary of Therapies: 1. Left breast mastectomy by Dr. Gurmeet Peña 09/02/2014. 2. Arimidex therapy initiated September 2014 through February 2015. Stopped due to excessive salivation. 3. Exemestane therapy 25 mg daily started March 2015 and tolerated well. No significant side effects with this therapy. 5 years of therapy will be [id number]/2020. Subjective/ROS - Narrative: Constitutional: No Chills, No Diaphoresis, No Fatigue, No Fever, No Malaise, NoNight Sweats, No Weakness, No Weight Gain, No Weight Loss Gastrointestinal: No Abdominal Pain, No Black Stool, No Bloating, No Bloody Stool, No Constipation/Diarrhea, No Dysphagia, No Hematemesis, No Nausea/Vomiting, No Postprandial Pain, No Rectal Bleeding or pain, Cardiovascular: No Chest Pain, No Edema, No Palpitations, No Syncope Genitourinary: No Discharge, No Dysuria, No Flank Pain, No Frequency, No Hematuria, No Incontinence, No Urinary Retention--currently on hemodialysis since 11/2017. Musculoskeletal: Mild chronic Back Pain, No Chest Wall Tenderness (left mastectomy site well healed), No Joint Pain, No Joint Swelling, No Muscle Stiffness,No Myalgia, No Neck Pain HEENT: No Blurred Vision, No Discharge, No Ear Pain, No Epistaxis, No Loss of Hearing, No Rhinorrhea, No Sore Throat--resolved oral lesions Respiratory: No Cough, No Hemoptysis, No Shortness of Breath, No Sputum, No Wheezing Neurological: No Dizziness, No Headache, No Numbness, No Tingling Hematologic/Lymphatic: No Bleeds Easily, No Bruises Easily, No Enlarged Lymph Nodes Endocrine: No Excessive Sweating, No Flushing, No Intolerance to Cold, No Intolerance to Heat Psychiatric: No Anxiety, No Depressed Mood, No Insomnia Integumentary: No Jaundice, No Lesions, No Petechiae, No Rash LEFT Breast: No Changes RIGHT Breast: No Changes, No Lump(s), No Nipple Discharge Allergic/Immunology: No Pruritus ROS Details: All systems reviewed & no additional complaints except as documented ONC PMF - Medical History Medical history: Cancer - breast, Renal Disease - now on hemodialysis since 11/2017, Other - MGUS - Surgical History Surgical history female: breast surgery - Cardiac History Does Patient Have Pacemaker?: No - Social History Hx Recreational Drug Use?: No Home Medications & Allergies Allergies Allergy/AdvReac Type Severity Reaction Status Date / Time amiodarone Allergy Swelling Verified 11/14/17 10:41 of Lip/Tongue/Throat lisinopril Allergy Cough Verified 11/14/17 10:41 miconazole Allergy Unknown Verified 11/14/17 10:41 [From Neosporin AF] Reaction tobramycin [From Tobrex] Allergy Unknown Verified 11/14/17 10:41 Reaction Sulfa (Sulfonamide AdvReac Rash Verified 11/14/17 10:41 Antibiotics) Home Medications Medication Instructions Recorded Confirmed Type amitriptyline 5 mg PO QHS 02/26/17 03/05/18 History hydralazine 25 mg PO BID 02/26/17 03/05/18 History melatonin 3 mg PO QHS PRN 05/22/17 03/05/18 History anastrozole 1 mg PO DAILY #90 tab 08/14/17 03/05/18 Rx ketorolac 1 drp OPHTHALMIC (EYE) Q6HR 11/04/17 03/05/18 History prednisolone acetate [Pred Forte] 1 drp OPHTHALMIC (EYE) DAILY 11/04/17 03/05/18History furosemide 40 mg PO DAILY 30 Days #30 tab 11/06/17 03/05/18 Rx levothyroxine [Synthroid] 100 mcg PO DAILY@0630 #0 tab 11/06/17 03/05/18 Rx clonidine HCl 0.2 mg PO BID 11/14/17 03/05/18 History aspirin 81 mg PO 2XW 11/17/17 03/05/18 History apixaban [Eliquis] 2.5 mg PO DAILY 03/05/18 03/05/18 History Objective - Resuscitation Status Resuscitation Status: Full Code - Height/Weight Height/Weight: Height 5 ft 0.5 in Weight 66.2 kg - Vital Signs Vital Signs: Temp 97 F L 03/05/18 14:08 Pulse 87 03/05/18 14:08 Resp 20 03/05/18 14:08 BP 148/78 H 03/05/18 14:08 Pulse Ox 99 03/05/18 14:08 - Emotional Needs Assessment Emotional Needs Assessment: Emotional Needs Identified? No Distress Screening Total 0 - ECOG Performance Status ECOG Score: 1 Physical Exam - Constitutional no acute distress, average body habitus, no chronically ill appearing, cooperative - Routine HEENT Exam Head: normocephalic, atraumatic, no cushingoid faces Eye: EOMI, PERRL, normal accommodation, no conjunctival injection, no scleral icterus ENT: mucous membranes moist, oropharynx clear, dentition normal, no sinus tenderness - Routine Neck Exam supple, full ROM, no lymphadenopathy, no thyromegaly, no tenderness - Routine Chest/Breast/Axilla Exam Chest wall: no tenderness, other - right SC hemodialysis catheter Breast: no tenderness, no induration, no mass, left mastectomy - Well-healed no skin changes Axillae: no lymphadenopathy, no mass, no tenderness, no swelling - No lymphedema of left upper extremity - Routine Respiratory Exam no accessory muscle use, CTA bilaterally, no rales, no respiratory distress, no rhonchi, no wheezes - Routine Cardiovascular Exam RRR, no murmur, no gallop, no irregular rhythm - Routine Abdominal Exam soft, normoactive bowel sounds, no tenderness, no distended, no organomegaly, no mass - Routine Exam Groin: Absent: inguinal lymphadenopathy - Routine Extremities Exam Present: full ROM, pulses intact, normal capillary refill. Absent: cyanosis, clubbing, edema, calf tenderness, tenderness - Routine Back/Spine/Pelvis Exam Back/Spine: Present: full ROM. Absent: CVA tenderness, paraspinal tenderness, vertebral tenderness - Routine Skin Exam Present: intact, dry, warm, normal turgor. Absent: petechiae, urticaria, lesions, jaundice, rash, ecchymosis - Routine Neurological Exam Present: alert, oriented X3, CN II-XII intact, moving all extremities, vision grossly intact, hearing grossly intact, normal speech. Absent: sensory deficit, motor deficit, altered mental status, abnormal gait, tremors - Routine Psychiatric Exam Present: normal affect, normal thought process, cooperative. Absent: depressed, anxious Results - Labs CBC & Chem 7: 02/21/18 11:50 02/21/18 11:50 Labs: Diagram of Most Recent CBC and CMP 02/21/18 11:50 02/21/18 11:50 Labs - Last 7 Days 02/21/18 11:50: IgG Cancelled, IgA Cancelled, IgM Cancelled No detectable serum or urine M spike, normal kappa/lambda light chain ratio. Calcium 9.9. - Impressions Any impression(s) listed above is documentation that was entered by the reading physician into a diagnostic report(s) for Nury Moura. I have reviewed the report(s) and am incorporating any findings in the treatment plan of this patient where applicable. Date of Service: 11/15/17 XR/XR chest 1V portable: S/P RIGHT DIALYSIS CATH INSERTION Copies to: MD Kelechi [facility], ~ XR chest 1V portable 11/15/2017 1:46 PM SIGNS AND SYMPTOMS: S/P RIGHT DIALYSIS CATH INSERTION , rule out pneumothorax PROTOCOL: Frontal radiograph of the chest COMPARISON: 05/12/2017 FINDINGS: The trachea is midline. Atherosclerotic changes are noted in the aortic arch. There is a right-sided dual-lumen tunneled IJ catheter with the tip in the superior vena cava. There is no evidence of pneumothorax. The heart and mediastinal structures are within normal limits. The lung parenchyma is clear. The bony thorax is intact. IMPRESSION: No acute cardiopulmonary pathology. Status post right dual-lumen IJ tunneled catheter placement with the tip in the superior vena cava. No pneumothorax. Transcribed By: JUANJOSE 11/15/17 1421 Dictated By: Chai Posey II, MD [id number] Date of Service: 11/14/17 CT/CT abdomen pelvis wo con: Urogenital-Female Copies to: Ziggy Patten MD~ CLINICAL HISTORY: Vaginal bleeding, back pain, left flank pain. Recent UTI, chronic kidney disease. History of breast cancer and diverticular disease. CT ABDOMEN AND PELVIS WITHOUT CONTRAST: COMPARISON: None FINDINGS: CT scans of the abdomen and pelvis were obtained without contrast. The visualized lung bases show no infiltrate or pleural effusion. The visualized liver is of normal size without intrahepatic biliary dilatation. The gallbladder is free of wall thickening or pericholecystic inflammation. The pancreas shows no focal mass or peripancreatic inflammation. The visualized spleen and adrenal glands are of unremarkable size. Multiple punctate calcifications are noted within the spleen from old granulomatous disease. Both kidneys show no hydronephrosis or radiopaque stone. Mild perinephric stranding is noted bilaterally, nonspecific finding. Possibility of residual renal infection cannot be excluded. There is no perinephric fluid collection. Both ureters are of unremarkable caliber and course without radiopaque stone. The urinary bladder is unremarkable. No perivesical inflammation is noted. The uterus and adnexal regions are unremarkable. There is no free air in the abdomen or bowel obstruction. There is a normal appendix. Moderate amount of fecal material is present within the colon. There is mild diverticulosis at the sigmoid and the descending colon without evidence of diverticulitis. The abdominal aorta shows moderate calcified atheromatous plaques without aneurysm. There is no para-aortic lymphadenopathy. No prominent pelvic lymph node enlargement is demonstrated. A small fat-containing umbilical hernia is shown. IMPRESSION: MILD PERINEPHRIC STRANDING BILATERALLY, ONE CANNOT RULE OUT RESIDUAL KIDNEY INFECTION. PLEASE CORRELATE CLINICALLY. NO PERINEPHRIC ABSCESS. NO OBSTRUCTIVE UROPATHY. NO FREE AIR ABDOMEN OR BOWEL OBSTRUCTION. MILD DIVERTICULOSIS AT THE DESCENDING AND SIGMOID COLON.. The CT exam was performed using one or more of the following dose reduction techniques: Automated exposure control, adjustment of the MA and/or Kv according to patient size, or use of the iterative reconstruction technique. Transcribed By: JUANJOSE 11/14/17 [id number] Dictated By: Sebas Granados MD 11/14/17 [id number] - Other Results Results/Comments: Date of Service: 09/18/17 MM/MM diagnostic mammo RT w/CAD: Z85.3, RT Copies to: Gurmeet Peña,~ Right Diagnostic Full Field digital mammogram with 3-D imaging. Full field digital CC and MLO imaging performed. CAD utilized. COMPARISON: 09/14/16 HISTORY: History of LEFT breast cancer with mastectomy in 2015. FINDINGS: Scattered fibroglandular densities of the breast parenchyma identified. No developing architectural distortion, developing focal breast asymmetry or developing malignant calcifications identified. IMPRESSION:No mammographic evidence of malignancy. Routine follow-up recommended in one year. RESULT CODE: 1 Negative DENSITY CODE: 2 FOLLOW UP: 1YR \ THE FALSE-NEGATIVE RATE OF MAMMOGRAPHY IS APPROXIMATELY 10%. IMAGING OF A PALPABLE ABNORMALITY MUST BE BASED ON CLINICAL GROUNDS. PATIENT WAS ENTERED INTO A REMINDER SYSTEM WITH A [employer] DUE DATE FOR THE NEXT MAMMOGRAM. Transcribed By: JUANJOSE 09/18/17 1058 Dictated By: Magen Sheth DO 09/18/17 [id number] Assessment and Plan (1) Cancer of left breast greater than or equal to 2 cm in greatest dimension Status: Chronic 83 yo female with Stage IIB, low risk Oncotype ER/OK+, Her2 negative left breast cancer s/p mastectomy and on exemestane due to intolerance of Arimidex. No evidence of recurrence by exam or mammography 08/2017. Plan 5 years of AI therapy. I will see her for followup in 6 months, sooner prn. Low complexity visit for breast cancer and MGUS followup and review of complex laboratory testing. (2) MGUS (monoclonal gammopathy of unknown significance) Status: Chronic During evaluation for mild hypercalcemia and stage IV CKD (now on hemodialysis), she was found to have a small M-spike and abnormal kappa/lambda ratio. Immunofixation showed polyclonal immunoglobulins but mild elevation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 Q12H 02/26/17 03/05/17 History furosemide 20 mg PO BID 02/26/17 03/05/17 History hydralazine 50 mg PO TID 02/26/17 03/05/17 History levothyroxine 100 mcg PO DAILY 02/26/17 03/05/17 History metoprolol tartrate 50 mg PO BID 02/26/17 03/05/17 History spironolactone 25 mg PO DAILY 02/26/17 03/05/17 History Objective - Resuscitation Status Resuscitation Status: Full Code - Height/Weight Height/Weight: Height 5 ft 0.5 in Weight 164 lb 7.437 oz - Vital Signs Vital Signs: Last Vital Signs Temp 97.5 F L 03/05/17 14:07 Pulse 70 03/05/17 14:07 Resp 20 03/05/17 14:07 BP 145/75 H 03/05/17 14:07 Pulse Ox 97 03/05/17 14:07 Mild elevated blood pressure followed by her PCM and nephrology. - Emotional Needs Assessment Emotional Needs Assessment: Emotional Needs Identified? Yes Distress Screening Total 0 - ECOG Performance Status ECOG Score: 1 Physical Exam - Constitutional no acute distress, average body habitus, no chronically ill appearing, cooperative - Routine HEENT Exam Head: normocephalic, atraumatic, no cushingoid faces Eye: EOMI, PERRL, normal accommodation, no conjunctival icterus, no scleral injection ENT: mucous membranes moist, oropharynx clear, dentition normal, no sinus tenderness - Routine Neck Exam supple, full ROM, no lymphadenopathy, no thyromegaly, no tenderness - Routine Chest/Breast/Axilla Exam Chest wall: no tenderness Breast: no tenderness, no induration, no mass, left mastectomy - Well-healed no skin changes Axillae: no lymphadenopathy, no mass, no tenderness, no swelling - No lymphedema of left upper extremity - Routine Respiratory Exam no accessory muscle use, CTA bilaterally, no rales, no respiratory distress, no rhonchi, no wheezes - Routine Cardiovascular Exam RRR, no murmur, no gallop, no irregular rhythm - Routine Abdominal Exam soft, normoactive bowel sounds, no tenderness, no distended, no organomegaly, no mass - Routine Exam Groin: Absent: inguinal lymphadenopathy - Routine Extremities Exam Present: full ROM, pulses intact, normal capillary refill. Absent: cyanosis, clubbing, edema, calf tenderness, tenderness - Routine Back/Spine/Pelvis Exam Back/Spine: Present: full ROM. Absent: CVA tenderness, paraspinal tenderness, vertebral tenderness - Routine Skin Exam Present: intact, dry, warm, normal turgor. Absent: lesions, jaundice - Routine Neurological Exam Present: alert, oriented X3, CN II-XII intact, normal reflexes, moving all extremities, normal speech. Absent: altered mental status, abnormal gait - Routine Psychiatric Exam Present: normal affect, normal thought process, cooperative. Absent: depressed, anxious Results - Labs Labs: Laboratory Last Values Iron 40 ug/dL (40-150) 02/05/17 13:47 TIBC 330 ug/dL (255-450) 02/05/17 13:47 Iron Saturation 12.0 % (20-50) L 02/05/17 13:47 Transferrin 236 mg/dL (180-380) 02/05/17 13:47 Ferritin 140.0 ng/mL (11-306.8) 02/05/17 13:47 Serum Total Protein 7.0 g/dL (6.0-8.5) 02/05/17 13:47 Albumin (Send Out) 3.8 g/dL (2.9-4.4) 02/05/17 13:47 Globulin (PEP) 3.2 g/dL (2.2-3.9) 02/05/17 13:47 Albumin/Globulin (PEP) 1.2 (0.7-1.7) 02/05/17 13:47 Pobde-3-Zylophxyy 0.2 g/dL (0.0-0.4) 02/05/17 13:47 Wtnjg-1-Saxlqhydd 0.8 g/dL (0.4-1.0) 02/05/17 13:47 Beta Globulins 1.0 g/dL (0.7-1.3) 02/05/17 13:47 Gamma Globulins 1.3 g/dL (0.4-1.8) 02/05/17 13:47 M-Luigi Not observed g/dL (Not Observed) 02/05/17 13:47 PEP Note (.) 02/05/17 13:47 IgG 1089 mg/dL (700-1600) 02/05/17 13:47 IgA 88 mg/dL (64-422) 02/05/17 13:47 IgM 678 mg/dL (26-217) H 02/05/17 13:47 Free [place] LC, Quant 86.7 mg/L (3.3-19.4) H 02/05/17 13:47 Free Lambda LC, Quant 41.3 mg/L (5.7-26.3) H 02/05/17 13:47 Free [place]/Lambda Ratio 2.10 (0.26-1.65) H 02/05/17 13:47 - Other Results Results/Comments: Right Screening Full Field digital mammogram with 3-D imaging. Full field digital CC and MLO imaging performed. CAD utilized. COMPARISON: 07/23/15 HISTORY:Screening FINDINGS: Scattered fibroglandular densities of the breast parenchyma identified. No skin thickening, nipple contour changes, malignant type microcalcifications, focal masses or interval changes identified. IMPRESSION: BI-RADS 1: NEGATIVE MAMMOGRAM. LETTER CODE: 1A THE FALSE-NEGATIVE RATE OF MAMMOGRAPHY IS APPROXIMATELY 10%. IMAGING OF A PALPABLE ABNORMALITY MUST BE BASED ON CLINICAL GROUNDS. PATIENT WAS ENTERED INTO A REMINDER SYSTEM WITH A TARGET DUE DATE FOR THE NEXT MAMMOGRAM. Dictation Location: [id number] <Electronically signed by MAGEN SHETH DO in OV> 09/14/16 1501 DEXA scan from 02/19/2017 reviewed: AP spine T score -0.8, normal Left femoral neck T score -0.8, normal Right femoral neck T score -1.2, borderline osteopenia Patient was taken off oral calcium by nephrology due to borderline chronic kidney disease. Discussed ongoing follow-up on aromatase inhibitor and repeat study in 2 years. 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 No evidence of recurrence by exam or mammography 08/2016. Plan 5 years of AI therapy. I will see her for followup in 6 months, sooner prn. Moderate complexity visit for breast cancer and MGUS followup and review of complex laboratory testing. 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 Immunofixation showed polyclonal immunoglobulins but mild elevation of IgM which remained stable on most recent quantitative immunoglobulins in January 2017. Creatinine appears stable and hypercalcemia now only borderline after stopping supplemental calcium and vitamin D. Normal skeletal survey and bone scan, PTH, and 25-OH Vit D. Bone marrow aspiration and biopsy June 2016 shows no increase in plasma cells and is consistent with MGUS. Given clinical stability, I recommended observation only for MGUS and she may return for every 6 month f/u labs or sooner if symptomatic disease, frequent infections, or marked rise in M-spike or immunoglobulins. Patient expressed understanding of counseling and agrees with the plan of care outlined above. (3) Iron deficiency anemia Status: Chronic H/o multifactorial anemia. Prior iron repletion with iron sat of 17%. Bone marrow also showed mild decrease in iron stores (12%) and she will take daily supplemental iron OTC--she notes that she forgets this on some days. Will recheck her iron studies in 6 months with her MGUS f/u labs. Also likely anemia of chronic kidney disease. 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 Patient had recent hypercalcemia with no clear etiology from testing of PTH, vitamin D, or bone marrow biopsy for MGUS as noted above. She is no longer on supplemental calcium or vitamin D we will follow her closely with dietary supplementation of calcium with follow- up DEXA scan in 2 years. Patient expressed understanding. (5) Stage 3 chronic kidney disease Status: Chronic Stage III chronic kidney disease with creatinine stable followed by Dr. Parsons. Mild elevation of blood pressure today. No evidence of worsening renal function associated with MGUS. - Chemo Plan Chemo Plan (Dose, Rate, Freq): Exemestane 25mg daily x 5 years Goal of Treatment: Curative - Time Spent with Patient Greater than 50% of time spent with patient was for coordination of care (as documented) and [id number] counseling of patient and/or family. 25 - 35 minutes Dictated By: Kathy Moss MD DD/ 1416 Signed By: <Electronically signed by MD Kathy Moss> 03/06/17 1019 [facility] Work Phone: Evaluation noteNo Information[facility]ort[facility] Other Evaluation note* Diagnosis Onset Date Resolution Status Chronic kidney disease requiring chronic dialysis chronic [facility] Work Phone: Evaluation noteNo assessment information available [facility] Work Phone: evaluation note* Diagnosis Onset Date Resolution Status End-stage renal disease needing dialysis acute [facility] Work Phone: Evaluation note* Diagnosis Paroxysmal atrial fibrillation (CMS/HCC) Atrial fibrillation Primary hypertension Unspecified essential hypertension 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 (CMS/HCC) Never smoked any substance documented in this encounter [facility] Work Phone: History general Narrative - Reported* Type Description Date Medical History HTN Medical History DIalysis Medical History breast cancer Medical History hypothyroidisim Medical History Streptococcal sore throat Medical History ESRD Surgical History left ankle surgery x 2 Surgical History skin cancer removal Surgical History endoscopy with biopsy Surgical History Cardioversion -2017 Surgical History Right arm AVF 04/03/2018 Surgical History cataracts, bilaterally with imp lants Surgical History Revision Right arm AVF 9 Hospitalization History childbirth x 3 Hospitalization History toxoplasmosis Hospitalization History gi bleed 07/2019 Hospitalization History GI BLEED X 5d 07/2019 [facility] Other History of Present illness Narrative* The patient states she has been generally doing well since the last visit. Comorbid Illnesses: hypertension. * Symptoms: denies chest pain at rest, denies exertional chest pain, stable dyspnea, stable fatigue, stable exercise intolerance, denies palpitations, denies edema, denies orthopnea, denies dizziness and denies orthostatic dizziness. * Associated symptoms: no syncope. * Her symptoms do not limit her activities. * Disease Monitoring: * Medications: the patient is adherent with her medication regimen. She denies medication side effects. -[facility] 250 DO Work Phone: History of Present illness Narrative* The patient states she has been generally doing well since the last visit. Comorbid Illnesses: hypertension. * Symptoms: denies chest pain at rest, denies exertional chest pain, stable dyspnea, stable fatigue, stable exercise intolerance, denies palpitations, denies edema, denies orthopnea, denies dizziness and denies orthostatic dizziness. * Associated symptoms: no syncope. * Her symptoms do not limit her activities. * Disease Monitoring: * Medications: the patient is adherent with her medication regimen. She denies medication side effects. [facility] DO Work Phone: History of Present illness Narrative* Patient returns in follow-up of problems as noted. In the interim she is done relatively well but she describes a lot of orthostatic symptoms and fatigue particularly following her dialysis sessions.It appears her blood pressure is actually aggressively managed and probably excessively so and because of this I recommend stopping amlodipine. * Her atrial fibrillation appears to be asymptomatic and/or inconsequential. She denies symptoms. It is frequent in duration may be permanent. She is adequately protected with antithrombotic therapy. * She expresses some concern regarding her previous diagnosis of carotid disease and carotid bruit and chart review demonstrates has been a long time since carotid ultrasonography has been done becauseof this repeat imaging will be performed. Her increased body mass index is mild but we did advocatethe merits of caloric restriction. [facility] DO Work Phone: Reason for referral (narrative)* Consultation (Routine) - Authorized Specialty Diagnoses / Procedures Referred By Contac t Referred To Contact Cardiology Diagnoses Paroxysmal atrial fibrillation ([facility]) Primary hypertension Procedures Follow Up In Cardiology Zack Lopes MD [address] [address] Zack Lopes MD [address] [place] [id number] Referral ID Status Reason Start Date Expiration Date V isits Requested Visits Authorized [id number] Authorized 04/18/2023 04/17/2024 1 1 [facility] Work Phone: Family History Unknown Family Member Name Dates Details Family history of arterioscl erotic cardiovascular disease: Sibling(V17.49, Z82.49) Status:Active Relationship Condition Age at Onset Recorded Date/T leela Not Specified Heart disease Unknown Malignant neoplasm Unknown Unknown Family Member Name Dates Details Family history of arterioscl erotic cardiovascular disease: Sibling(V17.49, Z82.49) Status:Active Unknown Family Member Name Dates Details Family history of arterioscl erotic cardiovascular disease: Sibling(V17.49, Z82.49) Status:Active Unknown Family Member Name Dates Details Family history of arterioscl erotic cardiovascular disease: Sibling(V17.49, Z82.49) Status:Active Unknown Family Member Name Dates Details Family history of arterioscl erotic cardiovascular disease: Sibling(V17.49, Z82.49) Status:Active Unknown Family Member Name Dates Details Family history of arterioscl erotic cardiovascular disease: Sibling(V17.49, Z82.49) Status:Active Chief Complaint and Reason for Visit Chief Complaint ESRD per hx breast ca hand pain, knee pain Dog bite 7/5 poss infection R30.0 Forearm Wound Forearm Wound cri R76.0 Reason for Visit Chronic kidney disea se requiring chronic dialysis Chief Complaint hand pain, knee pain Dog bite 7/5 poss infection R30.0 Forearm Wound Forearm Wound cri R76.0 Chief Complaint M25.552 Chief Complaint M25.50 R76.0 M25.552 ESRD Abdominal Pain Chief Complaint M25.50 R76.0 M25.552 ESRD Abdominal Pain Reason for Visit End-stage renal dise ase needing dialysis Chief Complaint Z85.3 Advance Directives Advance Directive Response Recorded Date/ Time Advance Directives Yes April 3:36pm Advance Directive Response Recorded Date/ Time Advance Directives Yes April 2:36pm Chief Complaint * Annual f/u: 'doing just fine' * NURY MOURA is being seen for an annual follow-up of atrial fibrillation and hypertension. * Annual f/u: 'doing just fine' * NURY MOURA is being seen for an annual follow-up of atrial fibrillation and hypertension. * Patient is ambulatory with steady gait, last evaluated in clinic by Dr. Lopes September 2020. * She denies hospitalization. In May 2019 was seen in the emergency department due to shortness of breath, chest x-ray with vascular congestion and was treated with IV Bumex x1 with resolution of symptoms. In September 2020 sustained a dog bite to right forearm which required surgical procedure. * She presents to the office today were overall reports doing just fine, her activity has been limited due to surgical procedure on her right forearm. Basement steps - she occasionally has to go down and is tolerating without complaints. She continues to attend hemodialysis twice a week, is achieving euvolemic weight. No interruptions in therapy due to unstable vital signs. She ambulates from the parking lot into hemodialysis without any type of complaints. * She reports being asymptomatic with prior atrial fibrillation. Currently denies any type of palpitations, heart rates have been optimal throughout hemodialysis. * She does report recently hydralazine was transitioned over to Norvasc by rheumatology. Blood pressure has remained optimal, denies any side effects. * Hypertension-optimal * August 2019 HDL 55; LDL 72. Currently not on statin treatment * No diabetes * Overall patient is pleased with current state of cardiovascular health. At this time there are no indications for additional cardiovascular testing or need for medication changes. NURY MOURA is being seen for an annual follow-up of. Summary Purpose Additional Source Comments REASON FOR VISIT (unrecogniz ed section and content) Reason Comments Follow-up 6 month Care Teams (unrecognized sec tion and content) Team Status: Inactive Member Role Status Dates [place] Primary Care Provider Active Melo Guzman MD Attending Provider Active Team Status: Inactive Member Role Status Dates [place] Primary Care Provider Active Magen Lentz MD Attending Provider Active Team Status: Inactive Member Role Status Dates [place] Primary Care Provider Active Gurmeet Peña DO Attending Provider Active Team Status: Inactive Member Role Status Dates Leo Lanier MD Attending Provider Active [place] Primary Care Provider Active Team Status: Inactive Member Role Status Dates [place] Strauss Attending Provider Active Team Status: Inactive Member Role Status Dates [place] Primary Care Provider Active Kelechi Madison MD Emergency Provider Active Team Status: Active Member Role Status Dates [place] Primary Care Provider Active Team Status: Inactive Member Role Status Dates Namrata Shantel Tsering , STAMP ANALYST-C Primary Care Provider Active SHRUTHI Jovel-Cindy Attending Provider Active Team Status: Inactive Member Role Status Dates Namrata Cagle STAMP ANALYST-C Primary Care Provider, Attend ing Provider Active Team Status: Active Member Role Status Dates Namrata Cagle NP-Cindy Primary Care Provider Active Nicola Walker MD Attending Provider Active Team Status: Inactive Member Role Status Dates Namrata Cagle NP-Cindy Primary Care Provider Active Nicola Walker MD Attending Provider Active Miter Operator Relationship Specialty Start Date End Date Namrata Cagle, THORACIC MEDICINE PHYSICIAN-FORMULA TECHNICIAN [address] [facility] [place] [address] PCP - General 10/04/22 Goals (unrecognized section and content) Goals may be documented in a n alternate section INFORMATION SOURCE (unrecogn ized section and content) DATE CREATED AUTHOR 07/22/2022 [facility] DATE CREATED AUTHOR AUTHOR'S ORGANIZ ATION 10/05/2022 [facility] DATE CREATED AUTHOR AUTHOR'S ORGANIZ ATION 10/05/2022 [employer] DATE CREATED AUTHOR AUTHOR'S ORGANIZ ATION 11/18/2022 [facility] DATE CREATED AUTHOR AUTHOR'S ORGANIZ ATION 01/09/2023 [facility] DATE CREATED AUTHOR AUTHOR'S ORGANIZ ATION 04/04/2023 [facility] FOR RECORDS PERTAINING TO PATIENTS WHO ARE OR HAVE BEEN ENROLLED IN A CHEMICAL DEPENDENCY/SUBSTANCEABUSE PROGRAM, SOME INFORMATION MAY BE OMITTED. This clinical summary was aggregated from multiple sources. Caution should be exercised in using it in the provision of clinical care. This summary normalizes information from multiple sources, and as a consequence, information in this document may materially change the coding, format and clinical context of patient data. In addition, data may be omitted in some cases. CLINICAL DECISIONS SHOULD BE BASED ON THE PRIMARY CLINICAL RECORDS. [employer] provides no warranty or guarantee of the accuracy or completeness of information in this document.
[2023-04-19 10:55] LABS: Basophils Absolute Auto 0.1 10^3/uL (0.0-0.1); Basophils Percent Auto 1.2 % (0.2-2.0); Eosinophils Absolute Auto 0.2 10^3/uL (0.0-0.7); Eosinophils Percent Auto 2.8 % (0.9-7.0); Hematocrit 39.4 % (36.0-48.0); Immature Granulocytes Abs Auto 0.02 10^3/uL (0.00-0.03); Immature Granulocytes Pct Auto 0.3 % (0.0-0.5); Lymphocytes Absolute Auto 1.4 10^3/uL (1.2-3.8); Lymphocytes Percent Auto 23.1 % (20.5-60.0); Mean Platelet Volume 10.3 fL (9.5-13.5); Monocytes Absolute Auto 0.6 10^3/uL (0.3-0.8); Monocytes Percent Auto 10.2 % (1.7-12.0); Neutrophils Absolute Auto 3.8 10^3/uL (1.4-6.5); Neutrophils Percent Auto 62.4 % (43.0-75.0); Platelet Count 196 10^3/uL (150-450); Red Blood Count 3.94 10^6/uL (4.20-5.40); Red Cell Distribution Width 11.9 % (11.0-15.0); White Blood Count 6.1 10^3/uL (4.0-11.0)
[2023-04-19 11:22] LABS: Estimated Average Glucose 111 mg/dL; Glycohemoglobin A1C 5.5 % (4.5-6.2)
[2023-04-19 13:22] LABS: Alanine Aminotransferase 29 U/L (14-59); Albumin Globulin Ratio 0.9; Albumin Level 3.6 g/dL (3.4-5.0); Alkaline Phosphatase 79 U/L (46-116); Anion Gap 12.9; Aspartate Amino Transferase 21 U/L (15-37); BUN Creatinine Ratio 12.3; Bilirubin Total 0.7 mg/dL (0.2-1.0); Calcium 9.9 mg/dL (8.5-10.1); Carbon Dioxide 31.5 mmol/L (21.0-32.0); Chloride 97 mmol/L (98-107); Chol HDL Ratio 2.7; Cholesterol 155 mg/dL (<=200); Estimated GFR (African America 10 (>=60); Estimated GFR (Non-African Ame 9 (>=60); Free T3 2.36 pg/mL (2.18-3.98); Globulin 4.1 g/dL; Glucose 94 mg/dL (74-106); HDL Cholesterol 57 mg/dL (40-60); LDL Cholesterol Calculated 75.8 mg/dL; Potassium 4.4 mmol/L (3.5-5.1); Sodium 137 mmol/L (136-145); Total Protein 7.7 g/dL (6.4-8.2); Triglycerides 111 mg/dL (<=150); VLDL CHOLESTEROL 22.2 mg/dL
[2023-04-20 05:07] LABS: Insulin 8.9 uIU/mL (2.6-24.9)
== END 2023-04-19 10:11 | disposition home or self-care (01) ==
LOC: LAB 10:13
PROVIDERS: PCP Nurse Practitioner Family; Visit Provider Nurse Practitioner Family
DX: E78.5 Hyperlipidemia, unspecified (principal); R53.83 Other fatigue; R73.09 Other abnormal glucose; N18.9 Chronic kidney disease, unspecified; D64.9 Anemia, unspecified; E55.9 Vitamin D deficiency, unspecified; I12.9 Hypertensive chronic kidney disease with stage 1 through stage 4 chronic kidney disease, or unspecified chronic kidney disease
CPT/HCPCS: 36415; 80053; 80061; 82306; 83036; 83525; 83540; 84436; 84443; 84481; 85025

== ENCOUNTER 2023-09-26 08:54 | Outpatient (OUT) | payer MEDICARE, SELFPAY ==
--- NOTE | 2023-09-26 09:07 | XR_ITS ---
The [address] [address] Patient Name: MICKEY MOURA MRN: [id number] date: 1935 Sex: F Assigned Patient Location: LAB Current Patient Location: Accession/Order Number: [id number] Exam Date: 09/26/2023 09:10 Report Date: 09/27/2023 05:23 At the request of: RAMON CAGLE Procedure: XR abdomen 1V EXAMINATION: XR abdomen 1V HISTORY: Diarrhea R19.7 COMPARISON: No relevant comparison available. FINDINGS: BOWEL GAS PATTERN: Moderate-large amount of stool throughout the colon. No abnormal bowel dilation or evidence of obstruction. CALCIFICATIONS: None suspicious. OTHER: Negative. No abnormal gaseous collections. XR/XR abdomen 1V IMPRESSION: 1. No bowel obstruction or ileus. 2. Moderate-large stool burden. Electronically authenticated by: MARILEE PEREZ Date: 09/27/2023 05:23
== END 2023-09-26 08:55 | disposition home or self-care (01) ==
LOC: LAB 08:56
PROVIDERS: PCP Nurse Practitioner Family; Visit Provider Nurse Practitioner Family
DX: R19.7 Diarrhea, unspecified (principal)
CPT/HCPCS: 74018